=== PATIENT | male | born 1985 | race Caucasian/White ===

== ENCOUNTER 2017-10-10 09:43 | Emergency (ER) | payer SELFPAY ==
[2017-10-10 09:44] VITALS: BP 143/100; PULSE 70; RESP 16; TEMP 37.2; O2SAT 97; BMI 26.4
--- NOTE | 2017-10-10 09:51 | ED.DCSUM_ITS ---
- ER Visit Summary Date of Service: 10/10/17 Chief Complaint: Nausea, vomiting History of Present Illness: The patient is a 32 M presents to the emergency department with 24 hours of nausea and vomiting. Patient symptoms began last evening. He states he had some mild abdominal cramping. Today, he began to vomit. He said bouts of cramping. He states pain is worse in his midepigastric area. He has had no blood in the emesis. He denies any fevers but does admit to some chills. He states he is vomiting and felt like he was going to pass out. He has had no chest pain or dyspnea. The patient does have a history of marijuana abuse. He has had multiple bouts of vomiting like this before. He denies any other drug use. He denies any other withdrawal symptoms. Physical Examination: Vital signs reviewed General: Well-nourished, well-developed Head: Normocephalic, atraumatic Eyes: Pupils equal and reactive, extraocular muscles intact Neck, supple, no lymphadenopathy Heart: Regular rate and rhythm Respiratory: No distress, clear bilaterally Abdomen: Soft, minimally tender in the midepigastric area without rebound or guarding, nondistended, no peritoneal signs Back: Nontender Extremities: Nontender, no edema, no cords Skin: Normal color no rash Neuro: Alert and oriented, no focal or lateralizing deficits Test Results: [] Emergency Department Course and Treatment: The patient has had persistent nausea and vomiting. IV was established. He was given IV fluids, Phenergan, and Benadryl. He had no relief of symptoms. The patient was then given IM Haldol. He was reevaluated and had persistent nausea with 3 more bouts of emesis. Screening labs were obtained. These are unremarkable. Patient was then given lactated Ringer's, Benadryl, and Reglan. Within 30 minutes, the patient is still having multiple bouts of emesis. The patient is unable to even drink small amounts of fluids without persistent emesis, do for this patient's can require observation. He has failed multiple agents of anti- emetics. He has had symptoms like this in the past thought to be secondary to his marijuana abuse. He has a benign abdomen. Patient was discussed with the hospitalist. After discussing with the patient and proceeding with admission process, the patient decides that he does not want to stay. He states he just wants to go home. He feels like you will be able to control his symptoms better at home. The patient will be prescribed Zofran, Reglan, and will be discharged. I did savings counselor him that if his symptoms worsen he needs to return. He is comfortable with this plan of care. Treatment Plan: [] Disposition: Observation Impression: 1. Intractable nausea and vomiting This note was generated with [employer] dictation software. It may contain incorrect words, spelling, and punctuation that were not noted in review of the chart prior to signing ED Disposition - Plan for ED Patient: Chief Complaint: Nausea/Vomiting Instructions: ED Nausea Vomiting Prescriptions: Ondansetron [Zofran Odt] 4 mg PO Q8H PRN PRN #10 tab PRN Reason: Nausea Metoclopramide [Reglan] 10 mg PO 4X/DAY PRN #20 tab PRN Reason: Headache Referrals: Care Physician,No Primary [Primary Care Provider] -
[2017-10-10 10:07] LABS: Absolute Lymphocyte Count 1.51 X10^3/ul (0.83-4.51); Absolute Neutrophil Count 3.6 X10^3/uL (2.0-7.7); Basophil# 0.06 X10^3/uL; Eosinophils% 3.4 % (0-5); Hematocrit 45.3 % (40-54); Hemoglobin 15.9 g/dl (13.0-16.5); Lymphocyte # 1.51 X10^3/ul (4.0); Lymphocyte % 25.7 % (19-41); Mean Corp Hgb Conc 35.1 g/gl (32-36); Mean Corpuscular Hgb 30.4 pg (27.0-32.0); Mean Corpuscular Volume 86.6 fL (80-94); Mean Platelet Vol. 9.6 fl (6.2-12.0); Monocyte# 0.51 X10^3/uL; Monocyte% 8.7 % (0-10); Neutrophil # 3.58 X10^3/uL (2.7-7.7); Platelet Count 313 K/mm3 (150-450); RBC Distribution Width CV 13.5 % (11.6-14.6); RBC Distribution Width SD 42.8 fl (35.1-43.9); Red Blood Count 5.23 M/mm3 (4.6-6.2); White Blood Count 5.9 K/mm3 (4.4-11.0)
[2017-10-10] MEDS: DiphenhydrAMINE 50 MG/ML Syringe 25 MG IV ×2 (10:12→11:20)
[2017-10-10] MEDS: proMETHazine 25 MG/ML Syringe 12.5 MG IV (10:12)
[2017-10-10] MEDS: 0.9% Normal Saline 1,000 ML 1000 ML IV (10:12)
[2017-10-10 10:18] LABS: ALB/GLOB Ratio 1.3 RATIO (0.9-2.4); AST(SGOT) 15 U/L (15-37); Alanine Aminotransfer ALT/SGPT 24 U/L (16-61); Albumin, Serum 4.8 g/dL (3.2-5.0); Alkaline Phosphatase 93 U/L (45-117); Anion Gap 7 (5-15); BUN 12 mg/dL (7-18); BUN/Creat Ratio 9.6 RATIO (10-20); Calcium,Total 10.1 mg/dL (8.5-10.1); Chloride 105 mmol/L (98-107); Creatinine, Serum 1.25 mg/dL (0.70-1.30); EST Glomerular Filtration Rate 72 mL/min (>60); Est Glom Filt Rate - Afr Amer 87 mL/min (>60); Estimated Creatinine Clearance 97.66 ml/min; Globulin 3.7 g/dL (2.2-4.2); Glucose 94 mg/dL (74-106); Lipase 91 U/L (73-393); POSITIVE COUNT NO; POSITIVE DIFFERENTIAL NO; POSITIVE MORPHOLOGY NO; Potassium 4.4 mmol/L (3.5-5.1); Protein, Total 8.5 g/dL (6.4-8.2); Sodium Level 138 mmol/L (136-145)
[2017-10-10] MEDS: Haloperidol Lactate 5 MG/ML Vial IM (10:44)
--- NOTE | 2017-10-10 10:47 | ED.RN ---
PT CONTINUES TO ATTEMPT TO VOMIT. MOTHER AT BEDSIDE.
[2017-10-10] MEDS: LORazepam 2 MG/ML Syringe 1 MG IV (11:20)
[2017-10-10] MEDS: Lactated Ringers 1,000 ML 999 ML IV (11:20)
[2017-10-10] MEDS: Metoclopramide 10 MG/2 ML Vial IV (11:20)
[2017-10-10 12:13] VITALS: RESP 14
== END 2017-10-10 12:16 | disposition home or self-care (01) ==
PROVIDERS: Emergency Provider Emergency Medicine
DX: R11.2 Nausea with vomiting, unspecified (principal); R10.816 Epigastric abdominal tenderness; R68.83 Chills (without fever); R19.7 Diarrhea, unspecified; F41.9 Anxiety disorder, unspecified; F12.10 Cannabis abuse, uncomplicated; Z79.899 Other long term (current) drug therapy; Z72.0 Tobacco use
CPT/HCPCS: 80053; 83690; 85025; 96361; 96372; 96374; 96375; 96376; 99283; J7030; J7120; A4216

== ENCOUNTER 2017-10-10 14:08 | Observation (INO) | payer SELFPAY ==
[2017-10-10 14:09] VITALS: BP 143/77; PULSE 114; RESP 16; TEMP 36.5; O2SAT 97; BMI 26.4
--- NOTE | 2017-10-10 14:22 | ED.VISSUMM ---
- ER Visit Summary Date of Service: 10/10/17 Chief Complaint: Nausea, vomiting History of Present Illness: The patient is a 32 M presents to the emergency department with nausea and vomiting. The patient was actually seen here earlier. I evaluated this patient personally. He had intractable nausea and vomiting that I thought secondary to his chronic cannabis use. I was going to admit the patient. He refused admission. I did not make him sign AGAINST MEDICAL ADVICE because he felt like he could control his symptoms at home. Patient was prescribed Zofran and Reglan. States he got them filled but does have persistent vomiting. He states he has had continued cramping abdominal pain. He denies any fevers or chills. He states he can just not control his symptoms at home. Physical Examination: Vital signs reviewed General: Well-nourished, well-developed Head: Normocephalic, atraumatic Eyes: Pupils equal and reactive, extraocular muscles intact Neck, supple, no lymphadenopathy Heart: Regular rate and rhythm Respiratory: No distress, clear bilaterally Abdomen: Soft, mildly tender in the midepigastric area, nondistended, bowel sounds are hyperactive no peritoneal signs Back: Nontender Extremities: Nontender, no edema, no cords Skin: Normal color no rash Neuro: Alert and oriented, no focal or lateralizing deficits Test Results: [] Emergency Department Course and Treatment: The patient presents with recurrent symptoms. In fact, they never resolved. IV was established. The patient was treated with Benadryl, Ativan, and Thorazine. He had some improvement of his symptoms. I did discuss the presentation with the hospitalist. The patient is going to be admitted for his intractable nausea and vomiting. Treatment Plan: [] Disposition: Admission Impression: 1. Intractable nausea and vomiting This note was generated with [employer] dictation software. It may contain incorrect words, spelling, and punctuation that were not noted in review of the chart prior to signing ED Disposition - Plan for ED Patient: Chief Complaint: Nausea/Vomiting/Diarrhea
[2017-10-10 14:26] LABS: Bedside Glucose 119 mg/dL (70-110)
[2017-10-10] MEDS: DiphenhydrAMINE 50 MG/ML Syringe IV (14:41)
[2017-10-10] MEDS: LORazepam 2 MG/ML Syringe 1 MG IV (14:41)
[2017-10-10] MEDS: 0.9% Normal Saline 1,000 ML 1000 ML IV (14:41)
[2017-10-10] MEDS: ChlorproMAZINE 50 MG/2 ML Ampul IM (14:41)
[2017-10-10 14:44] LABS: Absolute Lymphocyte Count 0.83 X10^3/ul (0.83-4.51); Absolute Neutrophil Count 11.3 X10^3/uL (2.0-7.7); Basophil# 0.02 X10^3/uL; Basophil% 0.2 % (0-1); Hematocrit 42.8 % (40-54); Hemoglobin 14.7 g/dl (13.0-16.5); Lymphocyte # 0.83 X10^3/ul (4.0); Lymphocyte % 6.7 % (19-41); Mean Corp Hgb Conc 34.3 g/gl (32-36); Mean Corpuscular Hgb 29.8 pg (27.0-32.0); Mean Corpuscular Volume 86.8 fL (80-94); Mean Platelet Vol. 9.7 fl (6.2-12.0); Monocyte% 2.4 % (0-10); Neutrophil % 90.5 % (47-70); POSITIVE COUNT NO; POSITIVE DIFFERENTIAL NO; POSITIVE MORPHOLOGY NO; Platelet Count 275 K/mm3 (150-450); RBC Distribution Width CV 13.4 % (11.6-14.6); RBC Distribution Width SD 42.7 fl (35.1-43.9); Red Blood Count 4.93 M/mm3 (4.6-6.2); White Blood Count 12.5 K/mm3 (4.4-11.0)
--- NOTE | 2017-10-10 14:54 | CT_ITS ---
STUDY: CT ABDOMEN AND PELVIS WITHOUT CONTRAST REASON FOR EXAM: Male, 32 years old. Nausea and vomiting for 2 days RADIATION DOSAGE (If Supplied By Facility): CTDIvol = ( 10.25 ) mGy, DLP = ( 525.04 ) mGycm TECHNIQUE: Transaxial images were obtained from the dome of the diaphragm to the symphysis pubis without oral contrast, and without intravenous contrast. Sagittal and coronal images were reconstructed. Individualized dose optimization techniques were used for this CT. COMPARISON: None. FINDINGS: Lung bases demonstrate no evidence for consolidative process. Liver and spleen demonstrate no discrete mass. Gallbladder, adrenal glands and the pancreas are within normal limits. The bowel gas pattern is nonobstructive. The appendix appears unremarkable. Few scattered colonic diverticulosis without evidence for acute diverticulitis. No retroperitoneal adenopathy. No mesenteric adenopathy. Kidneys demonstrate no evidence for hydronephrosis. Nonobstructive appearance of the jejunal loops with apparent nonspecific wall thickening. Enteritis is a diagnostic consideration however in an appropriate clinical setting. Mild degenerative changes in the lumbar spine.. IMPRESSION: No evidence for obstructive uropathy. No evidence for acute appendicitis. No evidence for acute diverticulitis. Nonobstructive appearance of the jejunal loops with apparent nonspecific wall thickening. Enteritis is a diagnostic consideration however in an appropriate clinical setting. Electronically Signed: Chi Shrestha, at 15:50 EDT Tel , Service support , CT/Abdomen/Pelvis without Cont
[2017-10-10 14:57] LABS: ALB/GLOB Ratio 1.4 RATIO (0.9-2.4); AST(SGOT) 17 U/L (15-37); Alanine Aminotransfer ALT/SGPT 22 U/L (16-61); Albumin, Serum 4.6 g/dL (3.2-5.0); Alkaline Phosphatase 86 U/L (45-117); Anion Gap 9 (5-15); BUN 12 mg/dL (7-18); BUN/Creat Ratio 10.8 RATIO (10-20); Calcium,Total 9.5 mg/dL (8.5-10.1); Chloride 109 mmol/L (98-107); Creatinine, Serum 1.11 mg/dL (0.70-1.30); EST Glomerular Filtration Rate 83 mL/min (>60); Est Glom Filt Rate - Afr Amer 100 mL/min (>60); Estimated Creatinine Clearance 109.97 ml/min; Globulin 3.3 g/dL (2.2-4.2); Glucose 119 mg/dL (74-106); Lipase 73 U/L (73-393); Protein, Total 7.9 g/dL (6.4-8.2); Sodium Level 142 mmol/L (136-145)
--- NOTE | 2017-10-10 15:33 | HP.PCM_ITS ---
<Cole Anguiano - Last Filed: 10/10/17 15:19> Problem List (1) Intractable nausea and vomiting Status: Acute (2) Cannabis abuse Status: Chronic (3) Depression Status: Chronic (4) Anxiety Status: Chronic (5) Noncompliance with medication regimen Status: Chronic History of Present Illness Date of Admission: 10/10/17 Chief Complaint: intractable nausea and vomiting The patient is a 32 year old M who presented to the ER twice today with intractable nausea and vomiting that began last night. The patient states he was doing well until yesterday evening. He played 18 holes of golf during the day and then later at night started throwing up. He had a brief cessation in the evening and was able to keep down a normal full dinner last night. Then it began again, and has been persistent all day today. He states he has vomited about 50 times today. He came to the ER this AM and was given antiemetics without relief. He was going to be admitted but left AMA. He states that he went home and took two hot baths with some relief. When asked why he left he states he thought he could handle it on his own. He has no fevers or chills, but he is very sweaty currently. He is here with his mother. He also has BL abdominal pain located mostly on his sides but not back. He has had 2 episodes of loose stools. He denies any sick contacts. He is lethargic on exam after receiving thorazine. Also of note he stopped taking his seroquel 3 days ago because he ran out. He was hospitalized for intractable nausea and vomiting recently after suddenly discontinuing his psychiatric medicines. Additionally, he smokes marijuana 4-5 times per day. He does not drink alcohol. He has no prior abdominal surgeries. [] Past Medical History Past Medical History (Chronic Problems): Chronic Problems Cannabis abuse (Chronic) Insomnia (Chronic) Depression (Chronic) Anxiety (Chronic) Noncompliance with medication regimen (Chronic) Allergies No Known Allergies Allergy (Verified 10/10/17 14:11) Home Medications: Ambulatory Orders Medication Instructions Recorded ALPRAZolam [Xanax] 1 mg PO BID 10/10/17 Metoclopramide [Reglan] 10 mg PO 4X/DAY PRN #20 tab 10/10/17 Ondansetron [Zofran Odt] 4 mg PO Q8H PRN PRN #10 tab 10/10/17 Quetiapine Fumarate [Seroquel] 200 mg PO QHS 10/10/17 Sertraline HCl [Zoloft] 150 mg PO QHS 10/10/17 traZODone [Desyrel] 50 mg PO QHS 10/10/17 Surgical History: tonsillectomy Psychiatric History: Anxiety, Depression Lives: With Family Smoking Status: Current every day smoker Tobacco Use: Cigarettes Alcohol: None Drugs: Marijuana - *Family History Maternal History Items: No pertinent history Paternal History Items: COPD, Heart Disease Review of Systems Constitutional: Denies: Chills, Fever, Weight Change HEENT: Denies: Head Aches, Sinus Congestion, Sinus Drainage Cardiovascular: Denies: Chest Pain, Palpitations Respiratory: Denies: Cough, Shortness of breath at rest, Sputum production Gastrointestinal: Reports: Abdominal Pain, Nausea, Vomiting Genitourinary: Denies: Dysuria Musculoskeletal: Denies: Joint Pain, Joint Tenderness Skin: Denies: Rash, Wounds Neurological: Denies: Numbness, Tingling, Focal weakness Psychiatric: Denies: Anxiety, Depression, Homicidal Ideations, Suicidal Ideations Hematologic/ Lymphatic: Denies: Easy Bruising, Easy Bleeding VTE Information - Inpt Only VTE Present on Admission: No VTE Mechan Device Prophylaxis: SCD's VTE Pharm Prophylaxis ordered?: No Reason prophylaxis not ordered:: Procedure Not Indicated - Physical Exam General: Alert, Oriented x3, Cooperative, Lethargic HEENT: Atraumatic, PERRLA, EOMI, Normocephalic Neck: Supple, No JVD, Negative Carotid Bruits Lungs: Clear to auscultation, Normal air movement Cardiovascular: Regular rate, No murmurs Abdomen: Bowel Sounds Present, Soft, Tender - BL lateralized Extremities: No edema, Capillary Refill Less than 3 Seconds Skin: No rashes, No breakdown Musculoskeletal: No Tenderness to Palpation of Joints or Extremities Neurological: Cranial nerves II-XII grossly intact Psych/Mental Status: Anxious, Alert and oriented to time, place, person, mood and affect Vital Signs Temp Pulse Resp BP Pulse Ox 97.7 F L 114 H 16 143/77 H 97 10/10/17 14:09 10/10/17 14:09 10/10/17 14:09 10/10/17 14:09 10/10/17 14:09 Weight: 90.718 kg Body Mass Index (BMI) 26.4 Laboratory Tests Past 24 Hrs 10/10/17 10/10/17 14:05 14:05 WBC 12.5 H RBC 4.93 Hgb 14.7 Hct 42.8 MCV 86.8 MCH 29.8 MCHC 34.3 RDW 13.4 RDW Differential 42.7 Plt Count 275 MPV 9.7 Immature Gran % (Auto) 0.200 Neut % (Auto) 90.5 H Lymph % (Auto) 6.7 L Perkins % (Auto) 2.4 Eos % (Auto) 0.0 Baso % (Auto) 0.2 Absolute Neuts (auto) 11.3 H Absolute Lymphs (auto) 0.83 Total Counted Not Reportable Sodium 142 Potassium 4.0 Chloride 109 H Carbon Dioxide 24.0 Anion Gap 9 BUN 12 Creatinine 1.11 Estim Creat Clear Calc 109.97 Est GFR (MDRD) Af Amer 100 Est GFR (MDRD) Non-Af 83 BUN/Creatinine Ratio 10.8 Glucose 119 H Calcium 9.5 Total Bilirubin 0.60 AST 17 ALT 22 Alkaline Phosphatase 86 Total Protein 7.9 Albumin 4.6 Globulin 3.3 Albumin/Globulin Ratio 1.4 Lipase 73 POC Glucose 10/10/17 14:18 POC Glucose 119 H Assessment/Plan 1. Intractable nausea and vomiting with abdominal pain - pt is bounceback to the ER same day after leaving AMA. His BP is somewhat elevated, his pulse is elevated, and he has a mild leukocytosis, although this AM labs were normal. Recent admission for the same after suddenly discontinuing his psych meds - he suddenly DCd seroquel 3 days ago. He also is at risk for marijuana hyperemesis syndrome, especially with his classic history of relief with hot baths, however , will first rule out other pathology. As he has abdominal tenderness we will obtain a noncontrasted CT of the abdomen and pelvis. As he has also had some reported loose stools, viral gastroenteritis is also a possibility - no sick contacts tho. He will be placed on a clear liquid diet and given IV antiemetics , and pepcid. -LFTS are unremarkable, and Lipase is negative. -CT is pending. -I reiterated the importance of not suddenly discontinuing the psychiatric medications. 2. Anxiety and depression - resume home meds. He denies bipolar disorder. DVT ppx: SCDs This patient was seen by Cole Anguiano PA-C under the supervision of Doctor Gui. <uGiGaye E - Last Filed: 10/10/17 16:00> History of Present Illness The patient is a 32 year old M [] Past Medical History Allergies No Known Allergies Allergy (Verified 10/10/17 14:11) - Physical Exam Vital Signs Temp Pulse Resp BP Pulse Ox 97.7 F L 83 24 H 143/77 H 97 10/10/17 14:09 10/10/17 15:38 10/10/17 15:38 10/10/17 14:09 10/10/17 14:09 Assessment/Plan Hospitalist note: I am seeing this patient in conjunction with Cole Anguiano. I independently seen and examined the patient. History and physical and laboratory data and I concur with the above admission and treatment plan. Patient seen and examined. He presented to the emergency room because of intractable nausea and vomiting as well as vague generalized abdominal pain that started yesterday. As mentioned above, patient has been smoking marijuana. Also, he stopped taking his psych medications 3 days ago. Initially, tachycardic, blood pressure was slightly elevated, other vital signs are stable. - Physical Exam General: Alert, Oriented x3, Cooperative, complaining of abdominal pain. HEENT: Atraumatic, PERRLA, EOMI. Neck: Supple, No JVD, Negative Carotid Bruits, Trachea Midline, Thyroid Normal. Lungs: Clear to auscultation, Normal air movement, No rhonchi, No wheeze, No rales. Cardiovascular: Regular rate, Regular Rhythm, Normal S1, Normal S2, tachycardia , PMI Normal. Abdomen: Bowel Sounds Present, Tender, voluntary guarding, no localized tenderness or rigidity. No Hepato-splenomegaly. Extremities: No clubbing, No cyanosis, No edema Skin: No rashes, No breakdown Neurological: Neuro grossly intact, cranial nerves are intact, Dior 5 x 5 in all limbs. Assessment and plan: #1 intractable nausea and vomiting/abdominal pain: Likely because of cannabinoids hyperemesis syndrome. Initial blood work this morning was unremarkable. Blood work repeated again after he came back and showed mild leukocytosis, otherwise normal. LFT and lipase were unremarkable. Plan: Admit to [facility] floor for observation, IV fluids, IV antiemetics, IV Pepcid, CT scan abdomen and pelvis without contrast. #2 anxiety and depression: Continue home medications. #3 DVT prophylaxis: Low risk patient, no prophylaxis indicated. This note was generated with [employer] dictation software. It may contain incorrect words, spelling, and punctuation that were not noted in checking the note before signing. Code Visit OBSV E&M: 01410 Initial observation care L3
[2017-10-10 15:38] VITALS: PULSE 83; RESP 24
[2017-10-10 16:06] VITALS: BMI 23.8
[2017-10-10 16:16] VITALS: BP 146/77; PULSE 98; RESP 16; TEMP 37; O2SAT 99
[2017-10-10] MEDS: 0.9% Normal Saline 1,000 ML 125 ML IV (16:33)
[2017-10-10] MEDS: Famotidine 20 MG Tablet PO ×2 (16:35→21:52)
[2017-10-10] MEDS: 0.9% NaCl Peripheral Flush Adult/Peds IV ×2 (18:09→18:12)
[2017-10-10] MEDS: Ketorolac 15 MG/ML Vial IV (18:09)
[2017-10-10] MEDS: Ondansetron 4 MG/2 ML Vial IV (18:12)
[2017-10-10] MEDS: ALPRAZolam 0.5 MG Tablet 1 MG PO (19:57)
[2017-10-10 20:00] VITALS: BP 144/76; PULSE 94; RESP 18; TEMP 37.2; O2SAT 97
[2017-10-10] MEDS: traZODone 50 MG Tablet PO (21:52)
[2017-10-10] MEDS: QUEtiapine 100 MG Tablet 200 MG PO (21:52)
[2017-10-10] MEDS: Sertraline 50 MG Tablet 150 MG PO (21:52)
[2017-10-11] MEDS: 0.9% Normal Saline 1,000 ML 125 ML IV ×2 (00:40→08:00)
[2017-10-11 02:34] VITALS: BP 107/58; PULSE 95; RESP 18; TEMP 36.6; O2SAT 95
[2017-10-11 06:02] LABS: Absolute Lymphocyte Count 1.91 X10^3/ul (0.83-4.51); Absolute Neutrophil Count 7.5 X10^3/uL (2.0-7.7); Basophil# 0.02 X10^3/uL; Basophil% 0.2 % (0-1); Hematocrit 38.2 % (40-54); Lymphocyte # 1.91 X10^3/ul (4.0); Lymphocyte % 18.1 % (19-41); Mean Corpuscular Hgb 29.9 pg (27.0-32.0); Mean Corpuscular Volume 87.8 fL (80-94); Mean Platelet Vol. 9.8 fl (6.2-12.0); Monocyte% 10.4 % (0-10); Neutrophil # 7.53 X10^3/uL (2.7-7.7); Neutrophil % 71.1 % (47-70); Platelet Count 247 K/mm3 (150-450); RBC Distribution Width CV 13.7 % (11.6-14.6); RBC Distribution Width SD 44.3 fl (35.1-43.9); Red Blood Count 4.35 M/mm3 (4.6-6.2); White Blood Count 10.6 K/mm3 (4.4-11.0)
[2017-10-11 06:20] LABS: POSITIVE COUNT NO; POSITIVE DIFFERENTIAL NO; POSITIVE MORPHOLOGY NO
[2017-10-11 07:56] VITALS: BP 123/75; PULSE 98; RESP 18; TEMP 36.8; O2SAT 98
--- NOTE | 2017-10-11 08:07 | PCM.PN.HOSP ---
Vitals/I&O's: Vital Signs Temp Pulse Resp BP Pulse Ox 98.3 F 98 18 123/75 H 98 10/11/17 07:56 10/11/17 07:56 10/11/17 07:56 10/11/17 07:56 10/11/17 07:56 Oxygen Delivery Method Room Air Weight: 88.621 kg Body Mass Index (BMI) 23.8 Intake and Output for Last 24 Hours 10/09/17 10/10/17 10/11/17 23:59 23:59 23:59 Intake Total 650 / 650 1567 / 1567 Output Total 200 / 200 Balance 450 / 450 1567 / 1567 Laboratory Results 10/11/17 05:32: WBC 10.6, RBC 4.35 L, Hgb 13.0, Hct 38.2 L, MCV 87.8, MCH 29.9, MCHC 34.0, RDW 13.7, RDW Differential 44.3 H, Plt Count 247, MPV 9.8, Immature Gran % (Auto) 0.200, Neut % (Auto) 71.1 H, Lymph % (Auto) 18.1 L, Stephens % (Auto) 10.4 H, Eos % (Auto) 0.0, Baso % (Auto) 0.2, Absolute Neuts (auto) 7.5, Absolute Lymphs (auto) 1.91, Total Counted Not Reportable Current Medications Acetaminophen (Tylenol) 650 mg PO Q6H PRN PRN PRN Reason: PAIN Alprazolam (Xanax) 1 mg PO BID [facility] Last Admin: 10/10/17 19:57 Dose: 1 mg Famotidine (Pepcid) 20 mg PO BID [facility] Last Admin: 10/10/17 21:52 Dose: 20 mg Sodium Chloride () 1,000 mls @ 125 mls/hr IV .Q8H [facility] Last Admin: 10/11/17 00:40 Dose: 125 mls/hr Ketorolac Tromethamine (Toradol) 15 mg IV Q8H PRN PRN PRN Reason: PAIN Stop: 10/15/17 16:23 Last Admin: 10/10/17 18:09 Dose: 15 mg Ondansetron HCl (Zofran) 4 mg IV Q6H PRN PRN PRN Reason: NAUSEA Last Admin: 10/10/17 18:12 Dose: 4 mg Promethazine HCl (Phenergan) 6.25 mg IV Q6H PRN PRN PRN Reason: NAUSEA/VOMITING Quetiapine Fumarate (Seroquel) 200 mg PO QHS [facility] Last Admin: 10/10/17 21:52 Dose: 200 mg Sertraline HCl (Zoloft) 150 mg PO QHS [facility] Last Admin: 10/10/17 21:52 Dose: 150 mg Sodium Chloride () 5 - 30 ml IV UD PRN PRN Reason: SALINE FLUSH Last Admin: 10/10/17 18:12 Dose: 10 ml Trazodone HCl (Desyrel) 50 mg PO QHS [facility] Last Admin: 10/10/17 21:52 Dose: 50 mg Medical Necessity - Tobacco Use Smoking Status: Current every day smoker Tobacco Use: Cigarettes
--- NOTE | 2017-10-11 09:58 | CASEMGMT ---
Social Work Note SW met with pt as pt is self-pay. Per pt he applied for [employer] insurance and is waiting for the approval. SW provided pt local financial resources including [place] [id number], [employer], [employer], prescription assistance and HCAP application for [facility]. Pt was receptive to resources and thanked this SW. Pt denied additional needs or concerns at this time. Plan: Return Home at discharge [employer]
[2017-10-11] MEDS: Famotidine 20 MG Tablet PO (10:20)
[2017-10-11] MEDS: ALPRAZolam 0.5 MG Tablet 1 MG PO (10:20)
--- NOTE | 2017-10-11 10:49 | PCM.DC ---
- Discharge Diagnoses Current Active Problems: Current Active and Chronic Problems Cannabis abuse (Chronic) You will use the following diet at home:: No restrictions Your food should be the consistency of: Regular Your liquids should be the consistency of: Regular/Thin Discharge Activity: Return to Normal Activity Additional Instructions: You must completely discontinue using marijuana, THC products, and cannabinoid products. Allergies/Adverse Reactions: Allergies No Known Allergies Allergy (Verified 10/10/17 14:11) Medications to take at Discharge ALPRAZolam [Xanax] 1 mg PO BID 10/10/17 Quetiapine Fumarate [Seroquel] 200 mg PO QHS 10/10/17 Sertraline HCl [Zoloft] 150 mg PO QHS 10/10/17 traZODone [Desyrel] 50 mg PO QHS 10/10/17 Ondansetron [Zofran Odt] 4 mg PO Q8H PRN PRN #9 tab 10/11/17 The following prescriptions were given: Ondansetron [Zofran Odt] 4 mg PO Q8H PRN PRN #9 tab PRN Reason: Nausea Primary Care Physician: Care Physician,No Primary [Primary Care Provider] - Please follow up with your Primary Care Physician in: 1-2 weeks Please Follow Up With: Psychiatry - your own psychiatrist When: 1-2 weeks Proposed Discharge Date: 10/11/17
--- NOTE | 2017-10-11 12:44 | DS.PCM_ITS ---
<Cole Anguiano - Last Filed: 10/11/17 12:34> Discharge Date and Diagnosis Date of Admission: 10/10/17 Date of Discharge: 10/11/17 - Primary Discharge Diagnosis Intractable nausea and vomiting 2/2 cannabinoid hyperemesis syndrome Medication discontinuation syndrome - seroquel Anxiety and depression Nicotine abuse - Secondary Discharge Diagnosis Chronic Problems Cannabis abuse (Chronic) Insomnia (Chronic) Depression (Chronic) Anxiety (Chronic) Noncompliance with medication regimen (Chronic) Hospital Course and Treatment Imaging Results: CT abdomen: noncontrasted IMPRESSION: No evidence for obstructive uropathy. No evidence for acute appendicitis. No evidence for acute diverticulitis. Nonobstructive appearance of the jejunal loops with apparent nonspecific wall thickening. Enteritis is a diagnostic consideration however in an appropriate clinical setting. Operations: None Procedures: None Summary of Care Provided: Physical exam on day of discharge: General: Resting comfortably NAD Psych: A/Ox3 normal affect HEENT: PEARRLA AT NC Neck: Supple NT CV: RRR no m/t/r/g/h Resp: CTA Abd: [id number] Soft NT no guarding or rigidity Ext: DP2+= no edema Skin: W/D normal turgor Lymph/Heme: No active bleeding or adenopathy Neuro: CN2-12 intact Hospital course: The patient is a 32 year old M with a hx of anxiety and depression, nicotine abuse, marijuana abuse, who presented to the ER with chief complaint of intractable nausea and vomiting. He initially left AMA from the ER. He went home and soaked in a hot tub twice with some relief of his symptoms however it returned, so he returned to the ER for admission. He had some BL lateralizing abdominal pain and tenderness so a CT non contrats was done to rule out underlying pathology. This showed some enteritis. He admitted to smoking marijuana about 4-5 x / day. He also had a prior admission for intractable nausea and vomiting after suddenly discontinuing all of his psych meds. He did reveal that he stopped his seroquel 3 days prior as he ran out. His symptoms are consistent with cannabinoid hyperemesis syndrome, and could also partly be from his discontinuation of his seroquel. He also may have had some viral gastroenteritis. He was treated with supportive care, IV fluids and antiemetics. The following morning he had his diet advanced and has full resolution of his pain and improvement in his nausea. He was discharged home in stable condition and was advised to follow up with his PCP and psychiatrist. This patient was seen by Cole Anguiano PA-C under the supervision of Doctor Paul. [] Discharge Diet: No Restrictions Discharge Activity: Return to Normal Activity Additional Activity Instructions:: Discontinue use of all marijuana/THC/ cannabinoid products. Home Medications: Medications to take at Discharge ALPRAZolam [Xanax] 1 mg PO BID 10/10/17 Quetiapine Fumarate [Seroquel] 200 mg PO QHS 10/10/17 Sertraline HCl [Zoloft] 150 mg PO QHS 10/10/17 traZODone [Desyrel] 50 mg PO QHS 10/10/17 Ondansetron [Zofran Odt] 4 mg PO Q8H PRN PRN #9 tab 10/11/17 Following Prescrptions Were Given to Patient: Ondansetron [Zofran Odt] 4 mg PO Q8H PRN PRN #9 tab PRN Reason: Nausea Primary Care Physician: Care Physician,No Primary [Primary Care Provider] - Please follow up with your Primary Care Physician in: 1-2 weeks Please Follow Up With: Psychiatry - your own psychiatrist When: 1-2 weeks Disposition: Home Minutes spent on discharge:: 35 Patient Condition:: Stable Medical Necessity - Tobacco Use Smoking Status: Current every day smoker Tobacco Use: Cigarettes Meaningful Use Info Meaningful Use Diagnoses (Choose all that apply): None applicable <Lisa Miller - Last Filed: 10/11/17 15:32> Discharge Date and Diagnosis - Secondary Discharge Diagnosis Chronic Problems Cannabis abuse (Chronic) Insomnia (Chronic) Depression (Chronic) Anxiety (Chronic) Noncompliance with medication regimen (Chronic) Hospital Course and Treatment Summary of Care Provided: The patient is a 32 year old M [] Minutes spent on discharge:: 35 Code Visit Inpatient E&M: 66156 Disch Hosp
== END 2017-10-11 11:37 | disposition home or self-care (01) ==
LOC: ED 15:19 → MS3 15:33
PROVIDERS: Physician Assistant; Admitting Provider Hospitalist; Emergency Provider Emergency Medicine; Visit Provider Internal Medicine
DX: R11.2 Nausea with vomiting, unspecified (principal); F41.9 Anxiety disorder, unspecified; F32.9 Major depressive disorder, single episode, unspecified; Z79.899 Other long term (current) drug therapy; F12.188 Cannabis abuse with other cannabis-induced disorder; Z91.14 Patient's other noncompliance with medication regimen; F17.210 Nicotine dependence, cigarettes, uncomplicated
CPT/HCPCS: 36415; 74176; 80053; 82962; 83690; 85025; 96361; 96372; 96374; 96375; 97802; 99218; 99285; 99406; J7030; A4216; G0378; J2405

== ENCOUNTER 2017-10-13 10:17 | Observation (INO) | payer SELFPAY ==
[2017-10-13 10:18] VITALS: BP 158/102; PULSE 80; RESP 18; TEMP 36.2; O2SAT 97; BMI 25.0
[2017-10-13 10:38] LABS: Absolute Lymphocyte Count 1.32 X10^3/ul (0.83-4.51); Absolute Neutrophil Count 9.3 X10^3/uL (2.0-7.7); Basophil# 0.03 X10^3/uL; Basophil% 0.3 % (0-1); Eosinophil# 0.03 X10^3/uL; Eosinophils% 0.3 % (0-5); Hematocrit 42.9 % (40-54); Hemoglobin 14.8 g/dl (13.0-16.5); Lymphocyte # 1.32 X10^3/ul (4.0); Lymphocyte % 11.4 % (19-41); Mean Corp Hgb Conc 34.5 g/gl (32-36); Mean Corpuscular Hgb 29.7 pg (27.0-32.0); Mean Corpuscular Volume 86.1 fL (80-94); Mean Platelet Vol. 9.7 fl (6.2-12.0); Monocyte# 0.86 X10^3/uL; Monocyte% 7.4 % (0-10); Neutrophil # 9.33 X10^3/uL (2.7-7.7); Neutrophil % 80.4 % (47-70); Platelet Count 307 K/mm3 (150-450); RBC Distribution Width CV 13.4 % (11.6-14.6); RBC Distribution Width SD 42.2 fl (35.1-43.9); Red Blood Count 4.98 M/mm3 (4.6-6.2); White Blood Count 11.6 K/mm3 (4.4-11.0)
[2017-10-13 10:39] LABS: POSITIVE COUNT NO; POSITIVE DIFFERENTIAL NO; POSITIVE MORPHOLOGY NO
[2017-10-13] MEDS: 0.9% Normal Saline 1,000 ML 1000 ML IV (10:42)
[2017-10-13] MEDS: Metoclopramide 10 MG/2 ML Vial IV (10:43)
[2017-10-13] MEDS: LORazepam 2 MG/ML Syringe IV (10:43)
[2017-10-13] MEDS: DiphenhydrAMINE 50 MG/ML Syringe 25 MG IV (10:43)
[2017-10-13 10:55] LABS: ALB/GLOB Ratio 1.4 RATIO (0.9-2.4); AST(SGOT) 19 U/L (15-37); Alanine Aminotransfer ALT/SGPT 24 U/L (16-61); Albumin, Serum 4.6 g/dL (3.2-5.0); Alkaline Phosphatase 78 U/L (45-117); Anion Gap 12 (5-15); BUN 9 mg/dL (7-18); BUN/Creat Ratio 7.3 RATIO (10-20); Calcium,Total 9.9 mg/dL (8.5-10.1); Chloride 109 mmol/L (98-107); Creatinine, Serum 1.24 mg/dL (0.70-1.30); EST Glomerular Filtration Rate 73 mL/min (>60); Est Glom Filt Rate - Afr Amer 88 mL/min (>60); Estimated Creatinine Clearance 98.44 ml/min; Globulin 3.4 g/dL (2.2-4.2); Glucose 134 mg/dL (74-106); Lipase 85 U/L (73-393); Potassium 3.7 mmol/L (3.5-5.1); Sodium Level 141 mmol/L (136-145)
--- NOTE | 2017-10-13 11:46 | RAD_ITS ---
STUDY: X-RAY CHEST REASON FOR EXAM: Male, 32 years old. Cough and vomiting. TECHNIQUE: Frontal and lateral views of the chest. COMPARISON: None. FINDINGS: The lungs are clear and expanded. There is no demonstrated pleural abnormality. Normal size heart. Normal mediastinum and srinivas. Normal visualized pulmonary arteries. Normal visualized aortic arch and descending thoracic aorta. Normal visualized thoracic spine. Normal visualized ribs, clavicles, and shoulders. There is no demonstrated abnormality of the visualized soft tissue structures of the upper abdomen. RAD/Chest PA and Lateral IMPRESSION: Normal x-ray examination of the chest. Electronically Signed: Piter Arriola MD at 16:06 EDT , Service support ,
--- NOTE | 2017-10-13 11:46 | CT_ITS ---
STUDY: CT ABDOMEN AND PELVIS WITHOUT CONTRAST REASON FOR EXAM: Male, 32 years old. Abdomen pain, vomiting, leg cramps x3 days. RADIATION DOSAGE (If Supplied By Facility): CTDIvol = ( 8.34 ) mGy, DLP = ( 425.13 ) mGycm TECHNIQUE: Transaxial images were obtained from the dome of the diaphragm to the symphysis pubis without oral contrast, and without intravenous contrast. Sagittal and coronal images were reconstructed. Individualized dose optimization techniques were used for this CT. COMPARISON: October 10, 2017. FINDINGS: The visualized lung bases are unremarkable. The visualized portions of the heart are within normal limits. Normal liver. Normal gallbladder and extrahepatic biliary system. Normal spleen. Normal pancreas. Normal bilateral adrenal glands. Normal right kidney. Normal left kidney. Normal visualized stomach. Normal small intestine. Normal colon. The appendix is visualized and appears unremarkable and current sequence 2, image 114. There is no periappendiceal or pericecal inflammatory change, fluid collection or joshua abscess. There is no free fluid. There is no free air. Normal abdominal aorta. Normal inferior vena cava. Normal retroperitoneum. Normal urinary bladder. There are fatty only bilateral inguinal hernias. Normal osseous structures. CT/Abdomen/Pelvis without Cont IMPRESSION: No CT evident acute intraabdominal or intrapelvic pathology. Fatty only bilateral inguinal hernias. Electronically Signed: Piter Arriola MD at 16:05 EDT , Service support ,
--- NOTE | 2017-10-13 11:51 | ED.DCSUM_ITS ---
- ER Visit Summary Date of Service: 10/13/17 Chief Complaint: [Nausea and vomiting] History of Present Illness: The patient is a 32 M [presents to the emergency department complaint of vomiting that started this morning. Patient's thrown up more than 20 times. Patient was discharged from the hospital 2 days ago after being admitted for similar complaint. At that time patient had a CT scan of the abdomen pelvis showed questionable evidence of enteritis otherwise nothing acute. Patient denies any fever. Patient denies diarrhea. Patient does have history of marijuana abuse. Patient has history of anxiety.] Physical Examination: [HEENT-PERRLA, EOMI. Cranial nerves II through XII grossly intact. TMs clear. Mucous membranes moist. No adenopathy. Cardiovascular-regular rate and rhythm without murmur or ectopy Lungs-clear to auscultation, chest wall stable without crepitus or subcu emphysema Abdomen-normoactive bowel sounds, soft. Patient has diffuse tenderness. No rebound, rigidity, or perineal signs. Extremities-intact ?4, normal range of motion, normal pulses, atraumatic patient diaphoretic and hyperventilating.] Test Results: [CBC with differential showing 11.6, hemoglobin 14.8, hematocrit 43, platelets 307. Chemistries unremarkable. LFTs unremarkable. Lipase was 85.] Emergency Department Course and Treatment: [Patient was given a liter normal same fluid bolus. Patient initially given Reglan and Benadryl. Patient initially given Ativan 2 mg IV. Despite treatment patient continues to vomit and now the emesis is turning blood-tinged. Patient was written for Thorazine IV.] Treatment Plan: [Admit for further workup and evaluation. After patient was evaluated by hospitalist I was asked to order a CT scan of the patient's abdomen and a chest x-ray as well as blood cultures.] Disposition: [Admit] Impression: [Intractable nausea vomiting Abdominal pain] This note was generated with [employer] dictation software. It may contain incorrect words, spelling, and punctuation that were not noted in review of the chart prior to signing ED Disposition - Plan for ED Patient: Chief Complaint: Nausea/Vomiting Referrals: Care Physician,No Primary [Primary Care Provider] -
--- NOTE | 2017-10-13 12:07 | HP.PCM_ITS ---
Problem List (1) Cannabis abuse Status: Chronic (2) Depression Status: Chronic Qualifiers: Depression Type: unspecified Qualified Code(s): F32.9 - Major depressive disorder, single episode, unspecified (3) Anxiety Status: Chronic (4) Intractable nausea and vomiting Status: Acute Qualifiers: Vomiting type: cyclical vomiting Qualified Code(s): G43.A1 - Cyclical vomiting, intractable History of Present Illness Date of Admission: 10/13/17 Chief Complaint: Intractable nausea and vomiting - 1day The patient is a 32 year old M medical history of chronic cannabis use, anxiety and depression, recently discharged on 10/11/17 with cyclical vomiting syndrome and discontinuation syndrome. Patient states his been on all his medications since discharge. He denies smoking marijuana but his urine tox is positive for marijuana. That he felt well when he went home and this morning he decided to go play golf and whilst playing golf he felt very nauseous, took some Zofran but he did not hold him down. He has had times in the last few vomiting had blood in it. His vitals in the ED was stable with slight elevation in his blood pressure but repeat blood pressure on the floor was normal. Past Medical History Past Medical History (Chronic Problems): Chronic Problems Cannabis abuse (Chronic) Insomnia (Chronic) Depression (Chronic) Anxiety (Chronic) Noncompliance with medication regimen (Chronic) Allergies No Known Allergies Allergy (Verified 10/13/17 10:19) Home Medications: Ambulatory Orders Medication Instructions Recorded ALPRAZolam [Xanax] 1 mg PO BID 10/10/17 Quetiapine Fumarate [Seroquel] 200 mg PO QHS 10/10/17 Sertraline HCl [Zoloft] 150 mg PO QHS 10/10/17 traZODone [Desyrel] 50 mg PO QHS 10/10/17 Ondansetron [Zofran Odt] 4 mg PO Q8H PRN PRN #9 tab 10/11/17 Surgical History: tonsillectomy Psychiatric History: Anxiety, Depression Smoking Status: Current some day smoker - *Family History Maternal History Items: No pertinent history Paternal History Items: COPD, Heart Disease Review of Systems Constitutional: Reports: Chills, Fever, Weakness Eyes: Denies: Blurred vision, Cataracts, Conjunctivae Inflammation, Double vision HEENT: Denies: Difficulty Hearing, Difficulty Swallowing, Head Aches, Hearing Changes, Nasal bleeding, Nasal Congestion VTE Information - Inpt Only VTE Present on Admission: No VTE Pharm Prophylaxis ordered?: Yes - Physical Exam Vital Signs Temp Pulse Resp BP Pulse Ox 97.1 F L 80 18 158/102 H 97 10/13/17 10:18 10/13/17 10:18 10/13/17 10:18 10/13/17 10:18 10/13/17 10:18 Oxygen Delivery Method Room Air Weight: 86.183 kg Body Mass Index (BMI) 25.0 Laboratory Tests Past 24 Hrs 10/13/17 10/13/17 10:29 10:29 WBC 11.6 H RBC 4.98 Hgb 14.8 Hct 42.9 MCV 86.1 MCH 29.7 MCHC 34.5 RDW 13.4 RDW Differential 42.2 Plt Count 307 MPV 9.7 Immature Gran % (Auto) 0.200 Neut % (Auto) 80.4 H Lymph % (Auto) 11.4 L [place] % (Auto) 7.4 Eos % (Auto) 0.3 Baso % (Auto) 0.3 Absolute Neuts (auto) 9.3 H Absolute Lymphs (auto) 1.32 Total Counted Not Reportable Sodium 141 Potassium 3.7 Chloride 109 H Carbon Dioxide 20.0 L Anion Gap 12 BUN 9 Creatinine 1.24 Estim Creat Clear Calc 98.44 Est GFR (MDRD) Af Amer 88 Est GFR (MDRD) Non-Af 73 BUN/Creatinine Ratio 7.3 L Glucose 134 H Calcium 9.9 Total Bilirubin 0.60 AST 19 ALT 24 Alkaline Phosphatase 78 Total Protein 8.0 Albumin 4.6 Globulin 3.4 Albumin/Globulin Ratio 1.4 Lipase 85 Assessment/Plan 32 year old M medical history of chronic cannabis use, anxiety and depression, recently discharged on 10/11/17 with cyclical vomiting syndrome and discontinuation syndrome. Patient states his been on all his medications since discharge. 1. Intractable nausea and vomiting secondary to acute cyclical vomiting syndrome from marijuana use, patient's slight hematemesis is coming from retching from vomiting Plan: Admit to the MedSurg floor, IV fluids, IV antiemetics, IV PPI, advised to stop taking marijuana, follow-up on CT scan of the abdomen and pelvis 2. Anxiety/depression, continue home medication 3. Polysubstance use disorder, will add nicotine patch and gum 4. DVT PPx - Early ambulation Code Visit OBSV E&M: 21691 Initial observation care L3
[2017-10-13 12:41] VITALS: BP 122/65; PULSE 58; RESP 16; O2SAT 100
[2017-10-13 12:41] LABS: Bacteria 0 SEEN /hpf (None Seen); Mucous, Urine 0 SEEN /hpf (<or=2+); Red Blood Cells-Urine 0 SEEN /hpf (0-5); Squamous Epithelial Cells - UA 0 SEEN /hpf (0-5)
[2017-10-13 12:55] LABS: Color, Urine Yellow (Yellow); Glucose, Dipstick Normal (Normal); Ketone-Dipstick 15 mg/dl (Negative); Leukocyte Esterase-Dipstick 25 /ul (Negative); Nitrite-Dipstick Negative (Negative); Occult Blood-Urine Negative /ul (Negative); Protein-Dipstick Negative (Negative); Urine Bilirubin Dipstick Negative (Negative); Urine Clarity Clear (Clear); Urine Urobilinogen Normal (Normal)
[2017-10-13 13:03] LABS: White Blood Cells 0-5 SEEN /hpf (0-5)
[2017-10-13 13:23] LABS: Amphetamine Urine VISTA NEGATIVE (<1000 ng/mL); Barbiturate Urine VISTA NEGATIVE (< 200 ng/mL); Benzodiazepine Urine VISTA POSITIVE (< 200 ng/mL); Cocaine Urine VISTA NEGATIVE (< 300 ng/mL); Ecstacy Urine VISTA NEGATIVE (< 500 ng/mL); Methadone Urine VISTA NEGATIVE (< 300 ng/mL); PCP Urine VISTA NEGATIVE (< 25 ng/mL); THC Urine VISTA POSITIVE (< 50 ng/mL); Vista UDS pH Range 8
[2017-10-13 13:40] VITALS: BMI 25.8; BMI 25.9
[2017-10-13] MEDS: Ondansetron 4 MG/2 ML Vial IV (14:08)
[2017-10-13] MEDS: 0.9% NaCl Peripheral Flush Adult/Peds IV ×4 (14:08→21:58)
[2017-10-13] MEDS: proMETHazine 25 MG/ML Syringe 12.5 MG IV (15:39)
--- NOTE | 2017-10-13 20:25 | NURSING ---
Pt's father stopped at the desk to see if his son could get his IV wrapped so he could take a shower. I went back to the room after speaking with Katherin FOLEY and wrapped the pt's IV site so he could shower. I told him that when he was finished Katherin would be back to front office supervisor his fluids, obtain vital signs and assess the pt. Katherin had earlier informed me that the pt is trying to dictate his care already.
[2017-10-13 20:58] VITALS: BP 120/83; PULSE 90; RESP 16; TEMP 36.6; O2SAT 99
[2017-10-13] MEDS: Nicotine Polacrilex 2 MG GUM PO (21:57)
[2017-10-13] MEDS: ALPRAZolam 0.5 MG Tablet 1 MG PO (21:57)
[2017-10-13] MEDS: QUEtiapine 100 MG Tablet 200 MG PO (21:57)
[2017-10-13] MEDS: Sertraline 100 MG Tablet 150 MG PO (21:58)
[2017-10-13] MEDS: traZODone 50 MG Tablet PO (21:58)
--- NOTE | 2017-10-13 23:23 | NURSING ---
Patient called out requesting shower again. Explained to patient necessity of IVF for hydration and electrolyte replacement; however, patient still wishes to shower again.
[2017-10-14 02:54] VITALS: BP 111/70; PULSE 74; RESP 14; TEMP 37.1; O2SAT 99
[2017-10-14 06:04] LABS: Absolute Lymphocyte Count 2.79 X10^3/ul (0.83-4.51); Absolute Neutrophil Count 3.8 X10^3/uL (2.0-7.7); Basophil# 0.03 X10^3/uL; Basophil% 0.4 % (0-1); Eosinophil# 0.08 X10^3/uL; Hematocrit 36.7 % (40-54); Hemoglobin 12.7 g/dl (13.0-16.5); Lymphocyte # 2.79 X10^3/ul (4.0); Lymphocyte % 36.6 % (19-41); Mean Corp Hgb Conc 34.6 g/gl (32-36); Mean Corpuscular Hgb 30.2 pg (27.0-32.0); Mean Corpuscular Volume 87.4 fL (80-94); Mean Platelet Vol. 10.1 fl (6.2-12.0); Monocyte# 0.88 X10^3/uL; Monocyte% 11.5 % (0-10); Neutrophil # 3.84 X10^3/uL (2.7-7.7); Neutrophil % 50.4 % (47-70); Platelet Count 256 K/mm3 (150-450); RBC Distribution Width CV 13.5 % (11.6-14.6); RBC Distribution Width SD 42.2 fl (35.1-43.9); White Blood Count 7.6 K/mm3 (4.4-11.0)
[2017-10-14 06:11] LABS: POSITIVE COUNT NO; POSITIVE DIFFERENTIAL NO; POSITIVE MORPHOLOGY NO
[2017-10-14 06:31] LABS: ALB/GLOB Ratio 1.4 RATIO (0.9-2.4); AST(SGOT) 19 U/L (15-37); Alanine Aminotransfer ALT/SGPT 20 U/L (16-61); Albumin, Serum 3.9 g/dL (3.2-5.0); Alkaline Phosphatase 57 U/L (45-117); Anion Gap 8 (5-15); BUN 8 mg/dL (7-18); BUN/Creat Ratio 9.3 RATIO (10-20); Calcium,Total 8.4 mg/dL (8.5-10.1); Chloride 111 mmol/L (98-107); Creatinine, Serum 0.86 mg/dL (0.70-1.30); EST Glomerular Filtration Rate 110 mL/min (>60); Est Glom Filt Rate - Afr Amer 134 mL/min (>60); Estimated Creatinine Clearance 141.94 ml/min; Globulin 2.7 g/dL (2.2-4.2); Glucose 91 mg/dL (74-106); Potassium 3.7 mmol/L (3.5-5.1); Protein, Total 6.6 g/dL (6.4-8.2); Sodium Level 145 mmol/L (136-145)
--- NOTE | 2017-10-14 08:33 | PCM.PN.HOSP ---
Subjective: Patient was seen and examined. He feels improved. No more nausea or vomiting. Been keeping food down. Denies dizziness, SOB, fever, chills, chest pain. Vitals/I&O's: Vital Signs Temp Pulse Resp BP Pulse Ox 98.8 F 74 14 111/70 99 10/14/17 02:54 10/14/17 02:54 10/14/17 02:54 10/14/17 02:54 10/14/17 02:54 Oxygen Delivery Method Room Air Weight: 88.9 kg Body Mass Index (BMI) 25.8 Intake and Output for Last 24 Hours 10/12/17 10/13/17 10/14/17 23:59 23:59 23:59 Intake Total 2811 / 2811 1139 / 1139 Balance 281 / 2811 1139 / 1139 General: Alert, Oriented x3, Cooperative, No apparent distress HEENT: Atraumatic, PERRLA, EOMI, Normocephalic Oral: Moist Mucosa Neck: Supple Lungs: Clear to auscultation, Normal air movement Cardiovascular: Regular rate, Regular Rhythm, Normal S1, Normal S2, No murmurs Abdomen: Bowel Sounds Present, Soft, Non Tender, Non-Distended, No Hepato-splenomegaly Extremities: No edema Skin: No rashes, No breakdown Musculoskeletal: No Tenderness to Palpation of Joints or Extremities Lymphatic: No Cervical, Supraclavicular, or Inguinal Adenopathy Neurological: Cranial nerves II-XII grossly intact, Neuro grossly intact Psych/Mental Status: Normal Affect, Appropriate Laboratory Results 10/13/17 12:30: Urine Color Yellow, Urine Clarity Clear, Urine pH 8.0, Ur Specific [place] 1.010, Urine Protein Negative, Urine Glucose (UA) Normal, Urine Ketones 15 H, Urine Occult Blood Negative, Urine Nitrite Negative, Urine Bilirubin Negative, Urine Urobilinogen Normal, Ur Leukocyte Esterase 25 H, Urine RBC 0 SEEN, Urine WBC 0-5 SEEN, Ur Squamous Epith Cells 0 SEEN, Urine Bacteria 0 SEEN, Urine Mucus 0 SEEN 10/13/17 12:30: Urine Opiates Screen NEGATIVE, Urine Methadone Screen NEGATIVE, Ur Barbiturates Screen NEGATIVE, Ur Phencyclidine Scrn NEGATIVE, Ur Amphetamines Screen NEGATIVE, U Methamphetamin-MDMA NEGATIVE, U Benzodiazepines Scrn POSITIVE H, Urine Cocaine Screen NEGATIVE, U Cannabinoids Screen POSITIVE H, Ur Drug Screen Comment 10/14/17 05:30: WBC 7.6, RBC 4.20 L, Hgb 12.7 L, Hct 36.7 L, MCV 87.4, MCH 30.2, MCHC 34.6, RDW 13.5, RDW Differential 42.2, Plt Count 256, MPV 10.1, Immature Gran % (Auto) 0.100, Neut % (Auto) 50.4, Lymph % (Auto) 36.6, [place] % (Auto) 11.5 H, Eos % (Auto) 1.0, Baso % (Auto) 0.4, Absolute Neuts (auto) 3.8, Absolute Lymphs (auto) 2.79, Total Counted Not Reportable 10/14/17 05:30: Sodium 145, Potassium 3.7, Chloride 111 H, Carbon Dioxide 26.0, Anion Gap 8, BUN 8, Creatinine 0.86, Estim Creat Clear Calc 141.94, Est GFR (MDRD) Af Amer 134, Est GFR (MDRD) Non-Af 110, BUN/Creatinine Ratio 9.3 L, Glucose 91, Calcium 8.4 L, Total Bilirubin 0.80, AST 19, ALT 20, Alkaline Phosphatase 57, Total Protein 6.6, Albumin 3.9, Globulin 2.7, Albumin/Globulin Ratio 1.4 Current Medications Acetaminophen (Tylenol) 650 mg PO Q6H PRN PRN PRN Reason: Mild Pain (1-3)/Temp > 100.7 F Alprazolam (Xanax) 1 mg PO BID [facility] Last Admin: 10/13/17 21:57 Dose: 1 mg Bisacodyl (Dulcolax) 5 mg PO DAILY PRN PRN PRN Reason: Constipation Potassium Chloride/Sodium Chloride () 1,000 mls @ 100 mls/hr IV .Q10H [facility] Last Admin: 10/14/17 02:48 Dose: 100 mls/hr Pantoprazole Sodium 40 mg/ (Sodium Chloride) 110 mls @ 330 mls/hr IV Q12 [facility] Last Admin: 10/13/17 21:58 Dose: 330 mls/hr Magnesium Hydroxide (Milk Of Magnesia) 30 ml PO DAILY PRN PRN PRN Reason: Constipation Nicotine (Nicoderm Cq (Pbkc)) 21 mg TRANSDERM. DAILY [facility] Last Admin: 10/13/17 16:08 Dose: 21 mg Nicotine Polacrilex ([place] Nicotine (Bkc)) 2 mg PO Q2H PRN PRN PRN Reason: Nicotine Craving Last Admin: 10/13/17 21:57 Dose: 2 mg Ondansetron HCl (Zofran) 4 mg IV Q8H PRN PRN PRN Reason: NAUSEA Last Admin: 10/13/17 14:08 Dose: 4 mg Promethazine HCl (Phenergan) 12.5 mg IV Q6H PRN PRN PRN Reason: NAUSEA/VOMITING Last Admin: 10/13/17 15:39 Dose: 12.5 mg Psyllium Hydrophilic Mucilloid (Metamucil) 1 packet PO DAILY PRN PRN PRN Reason: CONSTIPATION Quetiapine Fumarate (Seroquel) 200 mg PO QHS [facility] Last Admin: 10/13/17 21:57 Dose: 200 mg Sertraline HCl (Zoloft) 150 mg PO QHS [facility] Last Admin: 10/13/17 21:58 Dose: 150 mg Sodium Chloride () 5 - 30 ml IV UD PRN PRN Reason: SALINE FLUSH Last Admin: 10/13/17 21:58 Dose: 10 ml Trazodone HCl (Desyrel) 50 mg PO QHS [facility] Last Admin: 10/13/17 21:58 Dose: 50 mg Medical Necessity - Tobacco Use Smoking Status: Current some day smoker Assessment/Plan 32 year old M medical history of chronic cannabis use, anxiety and depression, recently discharged on 10/11/17 with cyclical vomiting syndrome and discontinuation syndrome. Patient states his been on all his medications since discharge. 1. Intractable nausea and vomiting secondary to acute cyclical vomiting syndrome from marijuana use, improved, tolerating advancement in diet. Family requested for general surgeon for EGD and colonoscopy - Discussed with Dr. Young. 2. Anxiety/depression, continue home medication 3. Polysubstance use disorder, on nicotine patch and gum 4. DVT PPx - Early ambulation
[2017-10-14 08:55] VITALS: BP 138/82; PULSE 60; RESP 16; TEMP 37; O2SAT 98
[2017-10-14] MEDS: ALPRAZolam 0.5 MG Tablet 1 MG PO (09:18)
[2017-10-14] MEDS: Magnesium Hydroxide 30 ML UDC PO (09:57)
--- NOTE | 2017-10-14 10:10 | CASEMGMT ---
Social Work Assessment Referral Date: 10/14/2017 Date of Assessment: 10/14/2017 Reason for consult: Initial assessment, Marijuana use, past hx of anxiety of depression Informant: SW Personal Status: SW met with pt to complete initial assessment. SW introduced self and role at [facility]. Pt states that he is currently living with his father and that he was previously independent with [facility] before coming into the hospital. 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 Pt states that he feels like he has good support around him but states that eventually he would like to move back to [place]. 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 Pt states that he has also lived in [place] before and also attended golf academy there. Pt states that he is good at golf and enjoys playing it. SW asked about pt's insurance and per pt his [employer] is currently still getting processed. Pt states that his plan is to return to his dad's house at discharge. Pt denied additional needs or concerns at this time. Substance Abuse Hx: Pt has a history of smoking Marijuana Mental Health Hx: Pt states that he has depression, anxiety and bipolar and that he currently takes medication. Pt states that he is seeing a psychiatrist that is on [facility] in [place] but it is not at [facility]. Pt states that in the past he was receiving counseling services through [facility] but states that he felt like therapy didn't work for him and he denied needing counseling services or references at this time. Pt states that his plan is to continue to take his medication and to continue to receive services from his psychiatrist. Plan: Return to his dad's house at discharge and to continue to receive services from his psychiatrist Mara Farooq [employer]
--- NOTE | 2017-10-14 11:15 | PCM.DC ---
- Discharge Diagnoses Reason(s) for Visit for Discharge Instructions: Nausea, vomiting You will use the following diet at home:: Regular Your food should be the consistency of: Regular Your liquids should be the consistency of: Regular/Thin Discharge Activity: Return to Normal Activity Additional Instructions: You are strongly advised to avoid smoking marijuana as your vomiting is related to use of marijuana. Allergies/Adverse Reactions: Allergies No Known Allergies Allergy (Verified 10/13/17 10:19) Medications to take at Discharge ALPRAZolam [Xanax] 1 mg PO BID 10/10/17 Quetiapine Fumarate [Seroquel] 200 mg PO QHS 10/10/17 Sertraline HCl [Zoloft] 150 mg PO QHS 10/10/17 traZODone [Desyrel] 50 mg PO QHS 10/10/17 Ondansetron [Zofran Odt] 4 mg PO Q8H PRN PRN #9 tab 10/11/17 Primary Care Physician: Care Physician,No Primary [Primary Care Provider] - Please follow up with your Primary Care Physician in: within 2 weeks Please Follow Up With: Reynold Young MD When: within 2 weeks of discharge as scheduled Proposed Discharge Date: 10/14/17
--- NOTE | 2017-10-14 11:17 | DS.PCM_ITS ---
Discharge Date and Diagnosis Date of Admission: 10/13/17 Date of Discharge: 10/14/17 - Primary Discharge Diagnosis Nausea and vomiting secondary to acute cyclical vomiting syndrome - Secondary Discharge Diagnosis Chronic Problems Cannabis abuse (Chronic) Insomnia (Chronic) Depression (Chronic) Anxiety (Chronic) Noncompliance with medication regimen (Chronic) Hospital Course and Treatment Imaging Results: Clinical Impression(s) from Imaging Studies Abdomen/Pelvis CT 10/13/17 11:46 IMPRESSION: No CT evident acute intraabdominal or intrapelvic pathology. Fatty only bilateral inguinal hernias. Electronically Signed: Piter Arriola MD at 16:05 EDT , Service support , Chest X-Ray 10/13/17 11:46 IMPRESSION: Normal x-ray examination of the chest. Electronically Signed: Piter Arriola MD at 16:06 EDT , Service support , General surgery Operations: None Procedures: None Summary of Care Provided: 32 year-old male with past medical history of chronic cannabis use, anxiety/ depression, recently discharged on 10/11/17 with cyclical vomiting syndrome and discontinuation syndrome comes with intractable nausea and vomiting. 1. Intractable nausea and vomiting secondary to acute cyclical vomiting syndrome secondary to marijuana use, improved, tolerating advancement in diet. Family requested for general surgeon for EGD and colonoscopy, general surgeon, Dr. Young consulted. 2. Anxiety/depression, continue home medication 3. Polysubstance use disorder, on nicotine patch and gum Discharge Diet: No Restrictions Discharge Activity: Return to Normal Activity Home Medications: Medications to take at Discharge ALPRAZolam [Xanax] 1 mg PO BID 10/10/17 Quetiapine Fumarate [Seroquel] 200 mg PO QHS 10/10/17 Sertraline HCl [Zoloft] 150 mg PO QHS 10/10/17 traZODone [Desyrel] 50 mg PO QHS 10/10/17 Ondansetron [Zofran Odt] 4 mg PO Q8H PRN PRN #9 tab 10/11/17 Primary Care Physician: Care Physician,No Primary [Primary Care Provider] - Please follow up with your Primary Care Physician in: within 2 weeks Please Follow Up With: Reynold Young MD When: within 2 weeks of discharge as scheduled Disposition: Home Minutes spent on discharge:: 35 Patient Condition:: Stable Medical Necessity - Tobacco Use Smoking Status: Current some day smoker Meaningful Use Info Meaningful Use Diagnoses (Choose all that apply): None applicable Code Visit Inpatient E&M: 98348 Disch Hosp
--- NOTE | 2017-10-14 13:33 | PCM.CONS.GEN ---
Problem List (1) Cannabis abuse Status: Chronic (2) Depression Status: Chronic Qualifiers: Depression Type: unspecified Qualified Code(s): F32.9 - Major depressive disorder, single episode, unspecified (3) Anxiety Status: Chronic (4) Intractable nausea and vomiting Status: Acute Qualifiers: Vomiting type: cyclical vomiting Qualified Code(s): G43.A1 - Cyclical vomiting, intractable Reason for Consult Date of Consultation: 10/14/17 History of Present Illness: The patient is a 32 year old M with a 4 year history of nausea and vomiting. The patient's been given a tentative diagnosis cyclic vomiting. The patient has a history of depression and anxiety. He is on multiple medications for anxiety but when he ends up running out of his medications or feels he probably doesn't need them and then stops taking his medications. She will have episodes it generally started as follows. He notes a sensation of anxiety and then he will feel like he is hyperventilating. it will then feel that his fingers or spasms or cramping out and then he develops abdominal pain. This epigastric abdominal pain is usually followed by prolific vomiting. the patient also smokes significant amounts of Marijuana,-, he notes 2 bowls per day. He states that if he is coming off his medicines or smoked marijuana and then got them on November 26. Large amounts of food and then the next morning gets anxious, he will vomit a significant amount of his relatively undigested food. This last episode of vomiting began when the patient had a phone call with his father who basically told him he would not amount to anything. The patient then became anxious and had the onset of these symptoms as he is prone to do. He noted blood in his vomitus towards the end of his retching episodes. He denies any significant change in bowel habits. He notes no melena or hematochezia. He notes no family history of colon problems. Past Medical History Past Medical History (Chronic Problems): Chronic Problems Cannabis abuse (Chronic) Insomnia (Chronic) Depression (Chronic) Anxiety (Chronic) Noncompliance with medication regimen (Chronic) Allergies No Known Allergies Allergy (Verified 10/13/17 10:19) Home Medications: Ambulatory Orders Medication Instructions Recorded ALPRAZolam [Xanax] 1 mg PO BID 10/10/17 Quetiapine Fumarate [Seroquel] 200 mg PO QHS 10/10/17 Sertraline HCl [Zoloft] 150 mg PO QHS 10/10/17 traZODone [Desyrel] 50 mg PO QHS 10/10/17 Ondansetron [Zofran Odt] 4 mg PO Q8H PRN PRN #9 tab 10/11/17 Surgical History: tonsillectomy Psychiatric History: Anxiety, Depression Smoking Status: Current some day smoker - *Family History Maternal History Items: No pertinent history Paternal History Items: COPD, Heart Disease Review of Systems Constitutional: Denies: Chills, Fever, Weight Change HEENT: Denies: Head Aches, Sinus Congestion, Sinus Drainage Cardiovascular: Denies: Chest Pain, Palpitations Respiratory: Denies: Cough, Shortness of breath at rest, Sputum production Gastrointestinal: Reports: Hematemesis, Nausea, Vomiting. Denies: Abdominal Pain Genitourinary: Denies: Dysuria Musculoskeletal: Denies: Joint Pain, Joint Tenderness Skin: Denies: Rash, Wounds Neurological: Denies: Numbness, Tingling, Focal weakness Psychiatric: Denies: Anxiety, Depression, Homicidal Ideations, Suicidal Ideations Hematologic/ Lymphatic: Denies: Easy Bruising, Easy Bleeding - Physical Exam General: Alert, Oriented x3, Cooperative HEENT: Atraumatic, PERRLA, EOMI, Normocephalic Neck: Supple, No JVD, Negative Carotid Bruits Lungs: Clear to auscultation, Normal air movement Cardiovascular: Regular rate, No murmurs Abdomen: Bowel Sounds Present, Soft, Non Tender Extremities: No edema, Capillary Refill Less than 3 Seconds Skin: No rashes, No breakdown Musculoskeletal: No Tenderness to Palpation of Joints or Extremities Neurological: Cranial nerves II-XII grossly intact Psych/Mental Status: Normal Affect, Appropriate Vital Signs Temp Pulse Resp BP Pulse Ox 98.6 F 60 16 138/82 H 98 10/14/17 08:55 10/14/17 08:55 10/14/17 08:55 10/14/17 08:55 10/14/17 08:55 Oxygen Delivery Method Room Air Weight: 88.9 kg Body Mass Index (BMI) 25.8 Intake and Output for Last 24 Hours 10/12/17 10/13/17 10/14/17 23:59 23:59 23:59 Intake Total 2811 / 2811 1139 / 1139 Balance 2811 / 281 1139 / 1139 Laboratory Tests Past 24 Hrs 10/14/17 10/14/17 05:30 05:30 WBC 7.6 RBC 4.20 L Hgb 12.7 L Hct 36.7 L MCV 87.4 MCH 30.2 MCHC 34.6 RDW 13.5 RDW Differential 42.2 Plt Count 256 MPV 10.1 Immature Gran % (Auto) 0.100 Neut % (Auto) 50.4 Lymph % (Auto) 36.6 [place] % (Auto) 11.5 H Eos % (Auto) 1.0 Baso % (Auto) 0.4 Absolute Neuts (auto) 3.8 Absolute Lymphs (auto) 2.79 Total Counted Not Reportable Sodium 145 Potassium 3.7 Chloride 111 H Carbon Dioxide 26.0 Anion Gap 8 BUN 8 Creatinine 0.86 Estim Creat Clear Calc 141.94 Est GFR (MDRD) Af Amer 134 Est GFR (MDRD) Non-Af 110 BUN/Creatinine Ratio 9.3 L Glucose 91 Calcium 8.4 L Total Bilirubin 0.80 AST 19 ALT 20 Alkaline Phosphatase 57 Total Protein 6.6 Albumin 3.9 Globulin 2.7 Albumin/Globulin Ratio 1.4 Assessment/Plan anxiety, depression, episodic vomiting, likely secondary to stress and anxiety. Episode of hematemesis, no colon changes I feel it is reasonable proceed with upper endoscopy. I do not feel that lower endoscopy is indicated at this time. I discussed with the patient the risks, benefits, complications, and possible alternatives of endoscopy. The patient consents to the planned procedure. Since he is on multiple antidepressant anxiety medications, I feel my ability to sedate him with fentanyl and Versed as limited and therefore we'll plan for monitored anesthetic care. I discussed with the patient and the patient's mother extensively. However, his symptoms sound more like anxiety related vomiting then truly a definition of cyclic vomiting. He currently sees a psychiatrist who monitors his anti-anxiety and antidepressant medications. As noted briefly in the patient's history of present illness, there are multiple issues exist, which likely need to be addressed from a psychiatric standpoint related to his anxiety and depression issues, which I feel will do more to improve his vomiting than any other specific event.
[2017-10-14 14:11] VITALS: BP 133/77; PULSE 80; RESP 16; TEMP 37.2; O2SAT 99
== END 2017-10-14 14:18 | disposition home or self-care (01) ==
LOC: ED 10:39 → MS3 12:50
PROVIDERS: Admitting Provider Internal Medicine; Emergency Provider Emergency Medicine; Visit Provider Internal Medicine
DX: G43.A0 Cyclical vomiting, in migraine, not intractable (principal); F12.10 Cannabis abuse, uncomplicated; F41.9 Anxiety disorder, unspecified; F32.9 Major depressive disorder, single episode, unspecified; Z79.899 Other long term (current) drug therapy; Z91.19 Patient's noncompliance with other medical treatment and regimen; F51.04 Psychophysiologic insomnia; F17.200 Nicotine dependence, unspecified, uncomplicated
CPT/HCPCS: 36415; 71046; 74176; 80053; 80307; 81001; 83690; 85025; 87040; 96361; 96365; 96366; 96375; 96376; 97802; 99218; 99284; 99406; J7030; A4216; G0378; J2405; J3490

== ENCOUNTER 2017-10-15 05:44 | Emergency (ER) | payer SELFPAY ==
[2017-10-15 05:45] VITALS: BP 132/82; PULSE 71; RESP 20; TEMP 36.2; O2SAT 98; BMI 25.8
[2017-10-15] MEDS: LORazepam 2 MG/ML Syringe 0.5 MG IV (05:59)
--- NOTE | 2017-10-15 06:03 | ED.DCSUM_ITS ---
- ER Visit Summary Date of Service: 10/15/17 Chief Complaint: Nausea and vomiting History of Present Illness: The patient is a 32 M he returns again for nausea and vomiting. He has been vomiting multiple times at home. His oral Zofran is not helping. He was admitted twice within the past week. It was suspected that either his cannabis use or a diagnosis of cyclical vomiting syndrome was causing his symptoms. He has had multiple negative CAT scans. He has had multiple types of therapies including Zofran, Phenergan, Reglan, Thorazine, Ativan and Haldol. None of these seem to help resolve his symptoms thoroughly. His vomiting started again. He is attributing it to his anxiety which makes his symptoms even worse. Physical Examination: Vital signs reviewed. HEENT exam unremarkable. Heart is regular rate and rhythm without murmurs. Lungs are clear to auscultation. Abdomen is soft with diffuse tenderness. Extremities reveal no edema. Skin exam normal. Neurologic exam normal. Test Results: None indicated Emergency Department Course and Treatment: Patient was treated with Zofran, Ativan, Benadryl and Thorazine. His dry heaving has stopped. Patient will be observed to see if he feels better. I have written Phenergan tablets and suppositories for home. Treatment Plan: [] Disposition: Pending Impression: Nausea and vomiting This note was generated with [employer] dictation software. It may contain incorrect words, spelling, and punctuation that were not noted in review of the chart prior to signing ED Disposition - Plan for ED Patient: Disposition: Home or Assisted Living Chief Complaint: Nausea/Vomiting Instructions: ED Nausea Vomiting Prescriptions: proMETHazine suppository [Phenergan Suppository] 25 mg RECTAL Q6H PRN PRN #6 suppos. PRN Reason: Nausea proMETHazine tablet [Phenergan] 25 mg PO Q6H PRN PRN #10 tab PRN Reason: Nausea Referrals: Care Physician,No Primary [Primary Care Provider] -
--- NOTE | 2017-10-15 06:32 | ED.DEP ---
ED Disposition - Plan for ED Patient: Disposition: Home or Assisted Living Chief Complaint: Nausea/Vomiting Instructions: ED Nausea Vomiting Prescriptions: proMETHazine suppository [Phenergan Suppository] 25 mg RECTAL Q6H PRN PRN #6 suppos. PRN Reason: Nausea proMETHazine tablet [Phenergan] 25 mg PO Q6H PRN PRN #10 tab PRN Reason: Nausea Referrals: Care Physician,No Primary [Primary Care Provider] -
[2017-10-15] MEDS: Ondansetron 4 MG/2 ML Vial IV (06:38)
[2017-10-15 09:00] VITALS: RESP 17
[2017-10-15] MEDS: 0.9% Normal Saline 1,000 ML 999 ML IV (09:09)
[2017-10-15] MEDS: proMETHazine 25 MG/ML Syringe 12.5 MG IV (09:09)
[2017-10-15 10:19] VITALS: BP 149/87; PULSE 67; RESP 16; O2SAT 97
== END 2017-10-15 10:20 | disposition home or self-care (01) ==
PROVIDERS: Emergency Provider Emergency Medicine
DX: R11.2 Nausea with vomiting, unspecified (principal); R10.9 Unspecified abdominal pain; F41.9 Anxiety disorder, unspecified; Z79.899 Other long term (current) drug therapy; F12.90 Cannabis use, unspecified, uncomplicated; Z72.0 Tobacco use
CPT/HCPCS: 96361; 96365; 96374; 96375; 99285; J7030; J7050; A4216; J2405; J3490

== ENCOUNTER 2017-10-16 14:36 | Observation (INO) | payer SELFPAY ==
[2017-10-16 14:36] VITALS: BP 149/114; PULSE 128; RESP 18; TEMP 36.8; O2SAT 96; BMI 24.7
--- NOTE | 2017-10-16 14:59 | ED.VISSUMM ---
- ER Visit Summary Date of Service: 10/16/17 Chief Complaint: Anxiety i, abdominal pain, vomiting History of Present Illness: The patient is a 32 M with history of bipolar affective disorder and anxiety presents with burning abdominal pain localized in the epigastric and sternal region with nausea and vomiting yesterday today. He states he has vomited 10 times today. He states he is anxious and wants to know what is wrong. He thinks he is going to . He was admitted on October 13 for similar presentation. He had a significant workup which was negative. He is scheduled for an outpatient EGD. There is no past surgical history. He has no medical problems. Records from the admission for October 13 for reviewed. He reports temperature 100.0?F yesterday at his psychiatrist's office. He denies any weight loss or weight gain. Does complain of chills uncertain is whether this is secondary to being cold or anxious for both. He does complain of binocular blurred vision without double vision or loss of vision. He does report dry mouth. No trouble with swallowing or speech. He does complain of burning of his esophagus and points to mid chest. He also complains of upper midline abdominal burning sensation. He denies hematemesis, melena hematochezia. He denies shortness of breath. He does have a cough. He denies dyspnea on exertion. He denies any dysuria, frequency, urgency or hematuria. He is on no anticoagulant. He denies bruising easily. He denies any skin lesions. He does complain of perioral numbness as well as numbness of upper and lower extremities. He does report feeling anxious. Please read written note for complete detail Physical Examination: Vital signs are remarkable for an elevated blood pressure 147/114 and a heart rate of 128. He is afebrile. Head is atraumatic and cephalic. Pupils equal round reactive. Extra muscles are intact. Nares patent. Posterior pharynx without erythema XA. Mucosa is dry. Trachea is midline. Heart is rapid and regular without murmur, gallop or rub. Lungs are clear to auscultation. He has upper abdominal discomfort to palpation. Pain is out of proportion to stimulus. Bowel sounds are present and diminished. He is alert he is anxious. Motor spiral 5. Sensations intact. DTRs are hyperreflexic at 3-4+. Unable to assess for clonus because he will not relax. He has bilateral's [place] sign. Test Results: BMP is remarkable for a sodium 132, potassium 3.3, CO2 of 17 with an anion gap of 15. BUN and creatinine 21 1.73. Last creatinine was 0.83. Emergency Department Course and Treatment: IV was established she received 2 L of normal saline. Since he is tachycardic and clinically dehydrated a BMP was obtained. He had the cyclic vomiting order set initiated and was initially treated with Ativan, Zofran and Pepcid. Stage II of the cyclic vomiting order set was initiated since patient continues to vomit. He remains tachycardic. He has received 1.5 L of normal saline. Treatment Plan: Patient continues to vomit is tachycardic with acute kidney injury hospitalist has been paged for admission and recommendation [facility]. And, he is scheduled for an EGD by Dr. Reynold Young on Wednesday Disposition: MedSur Impression: 1. Cyclic vomiting 2. Acute kidney injury 3. Moderate to severe dehydration 4. Sinus tachycardia documented on monitor 5. Anion gap acidosis 6. Hyperkalemia This note was generated with [employer] dictation software. It may contain incorrect words, spelling, and punctuation that were not noted in review of the chart prior to signing ED Disposition - Plan for ED Patient: Chief Complaint: Abd Pain Referrals: Care Physician,No Primary [Primary Care Provider] -
[2017-10-16] MEDS: 0.9% Normal Saline 1,000 ML 1000 ML IV ×2 (15:09→15:17)
[2017-10-16] MEDS: LORazepam 2 MG/ML Syringe 0.5 MG IV (15:09)
[2017-10-16] MEDS: Ondansetron 4 MG/2 ML Vial IV (15:14)
[2017-10-16 15:55] LABS: Anion Gap 15 (5-15); BUN 21 mg/dL (7-18); BUN/Creat Ratio 12.1 RATIO (10-20); Calcium,Total 10.6 mg/dL (8.5-10.1); Chloride 100 mmol/L (98-107); Creatinine, Serum 1.73 mg/dL (0.70-1.30); EST Glomerular Filtration Rate 49 mL/min (>60); Est Glom Filt Rate - Afr Amer 60 mL/min (>60); Estimated Creatinine Clearance 70.56 ml/min; Glucose 109 mg/dL (74-106); Potassium 3.3 mmol/L (3.5-5.1); Sodium Level 132 mmol/L (136-145)
[2017-10-16 16:34] VITALS: BP 119/64; PULSE 102; RESP 16; TEMP 36.9; O2SAT 96
--- NOTE | 2017-10-16 16:34 | PCM.HP.STD ---
Problem List (1) Cannabis abuse Status: Chronic (2) Insomnia Status: Chronic (3) Depression Status: Chronic Qualifiers: (4) Anxiety Status: Chronic (5) Noncompliance with medication regimen Status: Chronic (6) Intractable nausea and vomiting Status: Acute Qualifiers: History of Present Illness Date of Admission: 10/16/17 Chief Complaint: Nausea, vomiting. The patient is a 32 year old M who presents to the emergency room with persistent nausea, vomiting ?2 days. He has presented to the emergency room multiple times recently for nausea and vomiting as well. Patient was recently admitted 10/13/17 through 10/14/17 for nausea and vomiting secondary to acute cyclical vomiting syndrome suspected secondary to marijuana use. Patient denies current marijuana use. Urine tox screen 10/13/17 positive for cannabinoids. Patient denies fever, chills. Denies diarrhea. He states he has been unable to keep any liquid or food down the past 2 days. He received antiemetics at discharge yesterday from ER which he states have not been effective. Complains of generalized tenderness to palpation to abdomen. Patient states pain is burning in nature and located in the epigastric area down to lower abdomen. Patient also states he has attempted to use Zantac at home again, without improvement. He smokes approximately 1 pack per day. Denies other drug use. Denies alcohol use. His past medical history is significant for depression, anxiety, bipolar. Past Medical History Past Medical History (Chronic Problems): Chronic Problems Cannabis abuse (Chronic) Insomnia (Chronic) Depression (Chronic) Anxiety (Chronic) Noncompliance with medication regimen (Chronic) Allergies No Known Allergies Allergy (Verified 10/15/17 14:40) Home Medications: Ambulatory Orders Medication Instructions Recorded ALPRAZolam [Xanax] 1 mg PO BID 10/10/17 Quetiapine Fumarate [Seroquel] 200 mg PO QHS 10/10/17 Sertraline HCl [Zoloft] 150 mg PO QHS 10/10/17 traZODone [Desyrel] 50 mg PO QHS 10/10/17 Ondansetron [Zofran Odt] 4 mg PO Q8H PRN PRN #9 tab 10/11/17 proMETHazine suppository 25 mg RECTAL Q6H PRN PRN #6 suppos. 10/15/17 [Phenergan Suppository] proMETHazine tablet [Phenergan] 25 mg PO Q6H PRN PRN #10 tab 10/15/17 Surgical History: tonsillectomy Psychiatric History: Anxiety, Bipolar, Depression Lives: With Family Smoking Status: Current every day smoker Tobacco Use: Cigarettes - 1 pack per day Drugs: - - History of marijuana use, denies current use - *Family History Maternal History Items: Stroke Paternal History Items: COPD, Heart Disease Review of Systems Constitutional: Denies: Chills, Fever, Weight Change HEENT: Denies: Head Aches, Sinus Congestion, Sinus Drainage Cardiovascular: Denies: Chest Pain, Palpitations Respiratory: Denies: Cough, Shortness of breath at rest, Sputum production Gastrointestinal: Reports: Abdominal Pain, Nausea, Vomiting. Denies: Diarrhea, Hematemesis, Melena Genitourinary: Denies: Dysuria Musculoskeletal: Denies: Joint Pain, Joint Tenderness Skin: Denies: Rash, Wounds Neurological: Denies: Numbness, Tingling, Focal weakness Psychiatric: Reports: Anxiety, Depression. Denies: Homicidal Ideations, Suicidal Ideations Hematologic/ Lymphatic: Denies: Easy Bruising, Easy Bleeding VTE Information - Inpt Only VTE Present on Admission: No VTE Mechan Device Prophylaxis: None VTE Pharm Prophylaxis ordered?: No Reason prophylaxis not ordered:: Treatment Not Indicated - Physical Exam General: Alert, Oriented x3, Cooperative HEENT: Atraumatic, PERRLA, EOMI, Normocephalic Oral: Dry Mucosa Neck: Supple, No JVD, Negative Carotid Bruits Lungs: Clear to auscultation, Normal air movement Cardiovascular: Regular Rhythm, Normal S1, Normal S2, No murmurs, Tachycardic Abdomen: Bowel Sounds Present, Soft, Non Tender, Non-Distended Extremities: No clubbing, No cyanosis, No edema, Capillary Refill Less than 3 Seconds Skin: No rashes, No breakdown Musculoskeletal: No Tenderness to Palpation of Joints or Extremities Neurological: Cranial nerves II-XII grossly intact, Neuro grossly intact Psych/Mental Status: Normal Affect, Appropriate Vital Signs Temp Pulse Resp BP Pulse Ox 98.3 F 128 H 18 149/114 H 96 10/16/17 14:36 10/16/17 14:36 10/16/17 14:36 10/16/17 14:36 10/16/17 14:36 Oxygen Delivery Method Room Air Weight: 85.275 kg Body Mass Index (BMI) 24.7 Laboratory Tests Past 24 Hrs 10/16/17 15:10 Sodium 132 L Potassium 3.3 L Chloride 100 Carbon Dioxide 17.0 L Anion Gap 15 BUN 21 H Creatinine 1.73 H Estim Creat Clear Calc 70.56 Est GFR (MDRD) Af Amer 60 Est GFR (MDRD) Non-Af 49 L BUN/Creatinine Ratio 12.1 Glucose 109 H Calcium 10.6 H Assessment/Plan 1. Intractable nausea, vomiting-unclear etiology. Multiple recent presentations with persistent nausea, vomiting. Recent admission this was suspected secondary to marijuana use. IV fluids. Clear liquid diet. IV antiemetics. Patient was scheduled for outpatient EGD with Dr. Young on Wednesday. Will continue with plan for EGD on Wednesday. Begin IV PPI. Obtain lipase. 2. Acute kidney injury-secondary to dehydration as a result of #1. IV fluids. Monitor BMP. 3. Hypokalemia-secondary to #1. 4. Sinus tachycardia-secondary to dehydration. 5. Anxiety/depression/bipolar-follows with outpatient psychiatry. Continue home regimen of Xanax, Seroquel, Zoloft, trazodone. 6. Tobacco dependence-encourage smoking cessation. Nicotine replacement patch. 7. History of marijuana use-denies current use. Tox screen 10/13/17 positive for cannabinoids. DVT prophylaxis-not indicated due to low risk. Encourage ambulation. This patient was seen by LENA Carlson under the supervision of Dr. Lane.
[2017-10-16 16:36] VITALS: BP 121/62; PULSE 101; RESP 16; O2SAT 94
--- NOTE | 2017-10-16 17:07 | NURSING ---
med surg obs cyclic vomiting tereletsky
[2017-10-16 17:46] VITALS: BP 125/78; PULSE 95; RESP 16; TEMP 37.4; O2SAT 98; BMI 24.5
[2017-10-16 18:08] LABS: Lipase 81 U/L (73-393)
[2017-10-16] MEDS: 0.9% NaCl Peripheral Flush Adult/Peds IV (18:52)
[2017-10-16] MEDS: 0.9% Normal Saline 1,000 ML 200 ML IV (18:52)
[2017-10-16] MEDS: Sertraline 50 MG Tablet 150 MG PO (21:29)
[2017-10-16] MEDS: ALPRAZolam 0.5 MG Tablet 1 MG PO (21:29)
[2017-10-16] MEDS: traZODone 50 MG Tablet PO (21:29)
[2017-10-16] MEDS: QUEtiapine 100 MG Tablet 200 MG PO (21:29)
[2017-10-16 21:30] VITALS: BP 116/58; PULSE 111; RESP 14; TEMP 36.7; O2SAT 96
[2017-10-17 01:55] VITALS: BP 112/58; PULSE 66; RESP 18; TEMP 37; O2SAT 95
[2017-10-17] MEDS: 0.9% Normal Saline 1,000 ML 200 ML IV ×2 (01:55→06:34)
[2017-10-17] MEDS: proCHLORPERazine 10 MG/2 ML Vial IV (06:30)
[2017-10-17 06:32] LABS: Anion Gap 8 (5-15); BUN 15 mg/dL (7-18); BUN/Creat Ratio 18.2 RATIO (10-20); Calcium,Total 8.2 mg/dL (8.5-10.1); Chloride 110 mmol/L (98-107); Creatinine, Serum 0.82 mg/dL (0.70-1.30); EST Glomerular Filtration Rate 116 mL/min (>60); Est Glom Filt Rate - Afr Amer 141 mL/min (>60); Estimated Creatinine Clearance 148.87 ml/min; Glucose 81 mg/dL (74-106); Potassium 3.5 mmol/L (3.5-5.1); Sodium Level 141 mmol/L (136-145)
[2017-10-17] MEDS: LORazepam 2 MG/ML Syringe 0.5 MG IV (07:23)
[2017-10-17 09:37] VITALS: BP 113/71; PULSE 84; RESP 18; TEMP 37.2; O2SAT 99
[2017-10-17] MEDS: ALPRAZolam 0.5 MG Tablet 1 MG PO (09:46)
--- NOTE | 2017-10-17 11:45 | PCM.DC ---
You will use the following diet at home:: No restrictions Discharge Activity: Return to Normal Activity Call your doctor if you observe: Shortness of breath, Dizziness, Fainting spells Allergies/Adverse Reactions: Allergies No Known Allergies Allergy (Verified 10/15/17 14:40) Medications to take at Discharge ALPRAZolam [Xanax] 1 mg PO BID 10/10/17 Quetiapine Fumarate [Seroquel] 100 mg PO QHS 10/10/17 Sertraline HCl [Zoloft] 150 mg PO QHS 10/10/17 traZODone [Desyrel] 50 mg PO QHS 10/10/17 Ondansetron [Zofran Odt] 4 mg PO Q8H PRN PRN #9 tab 10/11/17 proMETHazine suppository [Phenergan Suppository] 25 mg RECTAL Q6H PRN PRN #6 suppos. 10/15/17 proMETHazine tablet [Phenergan tablet] 25 mg PO Q6H PRN PRN #10 tab 10/15/17 Esomeprazole Mag Trihydrate [Nexium] 40 mg PO BID #60 cap 10/17/17 The following prescriptions were given: Esomeprazole Mag Trihydrate [Nexium] 40 mg PO BID #60 cap Primary Care Physician: Care Physician,No Primary [Primary Care Provider] - Please follow up with your Primary Care Physician in: 1 Week Please Follow Up With: Reynold Young MD When: As scheduled, tomorrow 10/18/17 for EGD Proposed Discharge Date: 10/17/17
--- NOTE | 2017-10-17 11:47 | PCM.DC.SUM ---
Discharge Date and Diagnosis Date of Admission: 10/16/17 Date of Discharge: 10/17/17 - Primary Discharge Diagnosis 1. Intractable nausea, vomiting 2. Acute kidney injury 3. Hypokalemia 4. Sinus tachycardia 5. Anxiety/depression/bipolar 6. Tobacco dependence 7. History of chronic marijuana use - Secondary Discharge Diagnosis Chronic Problems Cannabis abuse (Chronic) Insomnia (Chronic) Depression (Chronic) Anxiety (Chronic) Noncompliance with medication regimen (Chronic) Hospital Course and Treatment Operations: None Procedures: None Summary of Care Provided: The patient is a 32 year old M admitted 10/16/2017 due to persistent nausea, vomiting. He has presented to the emergency room multiple times recently for nausea and vomiting as well. Patient was recently admitted 10/13/17 through 10/14/17 for nausea and vomiting secondary to acute cyclical vomiting syndrome suspected secondary to marijuana use. Patient denies current marijuana use. Urine tox screen 10/13/17 positive for cannabinoids. His past medical history is significant for depression, anxiety, bipolar. 1. Intractable nausea, vomiting-unclear etiology. Multiple recent presentations with persistent nausea, vomiting. Recent admission this was suspected secondary to marijuana use. Patient improved. Stable for discharge home with as needed antiemetics as previously prescribed. Patient scheduled for outpatient EGD with Dr. Young on 10/18/17. Patient will be discharged home on Nexium 40 mg twice daily. Lipase 81. 2. Acute kidney injury-secondary to dehydration as a result of #1. Patient received IV fluids. Resolved. 3. Hypokalemia-secondary to #1. Resolved. 4. Sinus tachycardia-secondary to dehydration. Resolved. 5. Anxiety/depression/bipolar-follows with outpatient psychiatry. Continue home regimen of Xanax, Seroquel, Zoloft, trazodone. 6. Tobacco dependence-encourage smoking cessation. 7. History of marijuana use-denies current use. Tox screen 10/13/17 positive for cannabinoids. General: Alert, Oriented x3, Cooperative HEENT: Atraumatic, PERRLA, EOMI, Normocephalic Oral: Dry Mucosa Neck: Supple, No JVD, Negative Carotid Bruits Lungs: Clear to auscultation, Normal air movement Cardiovascular: Regular Rhythm, Normal S1, Normal S2, No murmurs, Tachycardic Abdomen: Bowel Sounds Present, Soft, Non Tender, Non-Distended Extremities: No clubbing, No cyanosis, No edema, Capillary Refill Less than 3 Seconds Skin: No rashes, No breakdown Musculoskeletal: No Tenderness to Palpation of Joints or Extremities Neurological: Cranial nerves II-XII grossly intact, Neuro grossly intact Psych/Mental Status: Normal Affect, Appropriate Patient seen and examined prior to discharge. Physical assessment as above. Patient stable for discharge home with follow-up as scheduled tomorrow with Dr. Lovell for EGD. This patient was seen by LENA Carlson under the supervision of Dr. Lane. Discharge Diet: No Restrictions Discharge Activity: Return to Normal Activity Call your doctor if you observe: Shortness of breath, Dizziness, Fainting spells Home Medications: Medications to take at Discharge ALPRAZolam [Xanax] 1 mg PO BID 10/10/17 Quetiapine Fumarate [Seroquel] 100 mg PO QHS 10/10/17 Sertraline HCl [Zoloft] 150 mg PO QHS 10/10/17 traZODone [Desyrel] 50 mg PO QHS 10/10/17 Ondansetron [Zofran Odt] 4 mg PO Q8H PRN PRN #9 tab 10/11/17 proMETHazine suppository [Phenergan Suppository] 25 mg RECTAL Q6H PRN PRN #6 suppos. 10/15/17 proMETHazine tablet [Phenergan tablet] 25 mg PO Q6H PRN PRN #10 tab 10/15/17 Esomeprazole Mag Trihydrate [Nexium] 40 mg PO BID #60 cap 10/17/17 Following Prescrptions Were Given to Patient: Esomeprazole Mag Trihydrate [Nexium] 40 mg PO BID #60 cap Primary Care Physician: Care Physician,No Primary [Primary Care Provider] - Please follow up with your Primary Care Physician in: 1 Week Please Follow Up With: Reynold Young MD When: As scheduled, tomorrow 10/18/17 for EGD Disposition: Home Minutes spent on discharge:: 35 Patient Condition:: Stable Medical Necessity - Tobacco Use Smoking Status: Current every day smoker Tobacco Use: Cigarettes Meaningful Use Info Meaningful Use Diagnoses (Choose all that apply): None applicable
[2017-10-17 12:06] VITALS: BP 117/84; PULSE 83; RESP 16; TEMP 36.9; O2SAT 98
== END 2017-10-17 12:23 | disposition home or self-care (01) ==
LOC: ED 16:24 → MS3 17:32
PROVIDERS: Admitting Provider Internal Medicine; Emergency Provider Emergency Medicine; Visit Provider Internal Medicine
DX: R11.2 Nausea with vomiting, unspecified (principal); N17.9 Acute kidney failure, unspecified; E87.6 Hypokalemia; R00.0 Tachycardia, unspecified; F31.9 Bipolar disorder, unspecified; F41.9 Anxiety disorder, unspecified; Z79.899 Other long term (current) drug therapy; Z91.14 Patient's other noncompliance with medication regimen; E86.0 Dehydration; F12.10 Cannabis abuse, uncomplicated; F17.210 Nicotine dependence, cigarettes, uncomplicated
CPT/HCPCS: 36415; 80048; 83690; 96361; 96365; 96366; 96367; 96375; 96376; 97802; 99218; 99406; J7030; A4216; G0378; J2405; J3490

== ENCOUNTER 2017-10-18 10:06 | Day surgery (SDC) | payer SELFPAY ==
[2017-10-18] VITALS (7 sets, daily range): BP systolic 127–169; BP diastolic 73–100; PULSE 67–95; RESP 16–20; TEMP 36.6–37.9; O2SAT 97–100; BMI 24.0
--- NOTE | 2017-10-18 | IMM_PTH ---
PATIENT: JAD DUENAS LOC: EN U#:[id number] AGE/SX: 32/M ROOM: RE10/18/[address]: Dr. Reynold Young MD : 1985 BED: DIS: 10/18/2017 SPEC #: [id number] RECD: 10/20/17 11:09 STATUS: JOSEErrol AMELIA #: [id number] LUIS: 10/18/17 00:[address]: Reynold Young DEPT: IMMUNOHISTOCHEMISTRY RECD BY: Charlotte Jessica ENTERED: 10/20/17 11:16 SP TYPE: IMMUNO OTHR DR: No Primary Care Phys Tissues: B - Stomach, NOS C - Stomach, NOS Procedures: H Pylori (initial) PHYSICIAN & INSTITUTION [place] [id number] SPECIMEN INFORMATION: Tissue Source: B ? Antrum, C ? Proximal stomach Clinical Info: Cyclic vomiting Specimen Number: [id number] B & C CPT code: 16550 x2 METHODOLOGY: Deparaffinized sections of prefer/formalin-fixed tissue or PAP/DQ stained slides are incubated with monoclonal/polyclonal antibodies/oligonucleotide probes. Localization is made via biotin free immunoperoxidase method. Appropriate controls are performed and reacted as expected. Results on target cell population are indicated in the following table: RESULTS: ANTIBODY / CLONE RESULT Block B H Pylori (polyclonal) negative Block C H Pylori (polyclonal) negative These tests were developed and their performance characteristics determined by [facility]. They may not have been cleared or approved by the U.S. Food and Drug Administration. The FDA has determined that such clearance or approval is not necessary. INTERPRETATION: B. Antrum, biopsy: Negative for Helicobacter pylori organisms. C. Proximal stomach, biopsy: Negative for Helicobacter pylori organisms. SJ:erika 10/21/17
--- NOTE | 2017-10-18 11:35 | EGD_PTH ---
PATIENT: JAD DUENAS LOC: EN U#:[id number] AGE/SX: 32/M ROOM: RE10/18/[address]: Dr. Reynold Young MD : 1985 BED: DIS: 10/18/2017 SPEC #: [id number] RECD: 10/18/17 15:20 STATUS: LAURITA AMELIA #: [id number] LUIS: 10/18/17 11:[address]: Reynold Young DEPT: SURGICAL PATHOLOGY RECD BY: Dwayne Cotto ENTERED: 10/19/17 08:07 SP TYPE: EGD BIOPSY OTHR DR: Elizabeth Primary Care Phys Tissues: A - Jejunum, NOS B - Gastric mucous membrane C - Gastric mucous membrane Procedures: Surgery Specimen Level IV HEADER OPERATION: EGD PRE-OP DIAGNOSIS: Cyclic vomiting TISSUE SUBMITTED: A. Jejunum biopsies, B. Antrum for path and H. Pylori, C. Proximal stomach biopsies MICROSCOPIC DIAGNOSIS A. Jejunum, biopsy: Fragments of small intestinal mucosa, no pathologic diagnosis. B. Antrum, biopsy: Mild gastritis. C. Proximal stomach, biopsy: Mild gastritis. A minute lymphoid aggregate, favor benign. SJ:erika 10/20/17 COMMENT B & C. The results of immunohistochemistry for Helicobacter pylori will be reported separately ([id number]). MICROSCOPIC DESCRIPTION Slides are reviewed. B. The specimen shows fragments of gastric mucosa with chronic inflammatory cell infiltrates in the lamina propria consisting of lymphocytes and plasma cells, consistent with mild chronic gastritis. C. The specimen shows fragments of gastric mucosa with chronic inflammatory cell infiltrates in the lamina propria consisting of lymphocytes and plasma cells, consistent with mild chronic gastritis. A minute lymphoid is also noted, favor benign. GROSS DESCRIPTION A - Received in fixative is one container labeled with the patient's name and designated jejunum. The specimen consists of multiple irregular fragments of light sevilla soft tissue that in aggregate measure 0.5 x 0.5 x 0.1 cm. The specimen is totally submitted in one cassette. B - Received in fixative is one container labeled with the patient's name and designated antrum. The specimen consists of one irregular fragment of light sevilla soft tissue that measures 0.3 x 0.3 x 0.1 cm. The specimen is totally submitted in one cassette. C - Received in fixative is one container labeled with the patient's name and designated proximal stomach. The specimen consists of one irregular fragment of light sevilla soft tissue that measures 0.5 x 0.2 x 0.1 cm. The specimen is totally submitted in one cassette. / RY:rg 10/19/17 TC:3 CPT: 83320 x3
--- NOTE | 2017-10-18 11:50 | OP.PCM_ITS ---
Report of Operation Date of Procedure: 10/18/17 Pre-Operative Diagnosis: VOMITING, STRESS/ANXIETY VS CYCLIC VOMITING Post-Operative Diagnosis: VOMITING, STRESS/ANXIETY VS CYCLIC VOMITING - MILD GASTRITIS DISTAL, PROXIMAL GASTRITIS (?2ND TO VOMITING) MILD GE JUNCTIOJN IRRITATION Surgery/Procedure Performed:: EGD WITH BIOPSY assembler garment form: None Type of Anesthesia:: MAC Anesthesiologist: Morgan Yousif - ASA2 Specimen's removed: JEJUNAL, GASTRIC DISTAL, PROXIMAL GASTRIC Description of Procedure: The patient was brought to the endoscopy suite. Sign in was performed verifying patient, site, planned procedure, critical nursing information, the patient was monitored with cardiac, pulse oximetric, and blood pressure monitoring devices. Monitored anesthetic care was provided for sedation. Following IV sedation and after the oropharynx was sprayed with Cetacaine spray , a video gastroscope was inserted in the oropharynx and advanced down the esophagus without difficulty. The scope was advanced through the stomach, through the pylorus through the duodenum to the proximal jejunum. the jejunum appeared unremarkable. The duodenum was unremarkable. The antral region. The stomach demonstrated minimal gastritis. The body of the stomach was unremarkable. As the scope was retroflexed. The stomach along the lesser curve had erythematous nodularity consistent with gastritis, or more likely from chronic retching. Biopsies were obtained from both the antral area for H. pylori and pathology and a second biopsies obtained from the lesser curve just below the GE junction area. The patient had no significant hiatal hernia. There was mild distal esophagitis consistent with reflux, vomiting, but was otherwise unremarkable.
--- NOTE | 2017-10-20 07:11 | PCM.HP.BLA ---
History and Physical Date of Admission: 10/18/17 History of Present Illness: The patient is a 32 year old M with a 4 year history of nausea and vomiting. The patient's been given a tentative diagnosis cyclic vomiting. The patient has a history of depression and anxiety. He is on multiple medications for anxiety but when he ends up running out of his medications or feels he probably doesn't need them and then stops taking his medications. She will have episodes it generally started as follows. He notes a sensation of anxiety and then he will feel like he is hyperventilating. it will then feel that his fingers or spasms or cramping out and then he develops abdominal pain. This epigastric abdominal pain is usually followed by prolific vomiting. the patient also smokes significant amounts of Marijuana,-, he notes 2 bowls per day. He states that if he is coming off his medicines or smoked marijuana and then got them on November 26. Large amounts of food and then the next morning gets anxious, he will vomit a significant amount of his relatively undigested food. This last episode of vomiting began when the patient had a phone call with his father who basically told him he would not amount to anything. The patient then became anxious and had the onset of these symptoms as he is prone to do. He noted blood in his vomitus towards the end of his retching episodes. He denies any significant change in bowel habits. He notes no melena or hematochezia. He notes no family history of colon problems. Past Medical History Past Medical History (Chronic Problems): Chronic Problems Cannabis abuse (Chronic) Insomnia (Chronic) Depression (Chronic) Anxiety (Chronic) Noncompliance with medication regimen (Chronic) Allergies No Known Allergies Allergy (Verified 10/13/17 10:19) Home Medications: Ambulatory Orders Medication Instructions Recorded ALPRAZolam [Xanax] 1 mg PO BID 10/10/17 Quetiapine Fumarate [Seroquel] 200 mg PO QHS 10/10/17 Sertraline HCl [Zoloft] 150 mg PO QHS 10/10/17 traZODone [Desyrel] 50 mg PO QHS 10/10/17 Ondansetron [Zofran Odt] 4 mg PO Q8H PRN PRN #9 tab 10/11/17 Surgical History: tonsillectomy Psychiatric History: Anxiety, Depression Smoking Status: Current some day smoker - *Family History Maternal History Items: No pertinent history Paternal History Items: COPD, Heart Disease Review of Systems Constitutional: Denies: Chills, Fever, Weight Change HEENT: Denies: Head Aches, Sinus Congestion, Sinus Drainage Cardiovascular: Denies: Chest Pain, Palpitations Respiratory: Denies: Cough, Shortness of breath at rest, Sputum production Gastrointestinal: Reports: Hematemesis, Nausea, Vomiting. Denies: Abdominal Pain Genitourinary: Denies: Dysuria Musculoskeletal: Denies: Joint Pain, Joint Tenderness Skin: Denies: Rash, Wounds Neurological: Denies: Numbness, Tingling, Focal weakness Psychiatric: Denies: Anxiety, Depression, Homicidal Ideations, Suicidal Ideations Hematologic/ Lymphatic: Denies: Easy Bruising, Easy Bleeding - Physical Exam General: Alert, Oriented x3, Cooperative HEENT: Atraumatic, PERRLA, EOMI, Normocephalic Neck: Supple, No JVD, Negative Carotid Bruits Lungs: Clear to auscultation, Normal air movement Cardiovascular: Regular rate, No murmurs Abdomen: Bowel Sounds Present, Soft, Non Tender Extremities: No edema, Capillary Refill Less than 3 Seconds Skin: No rashes, No breakdown Musculoskeletal: No Tenderness to Palpation of Joints or Extremities Neurological: Cranial nerves II-XII grossly intact Psych/Mental Status: Normal Affect, Appropriate Vital Signs Temp Pulse Resp BP Pulse Ox 98.6 F 60 16 138/82 H 98 10/14/17 08:55 10/14/17 08:55 10/14/17 08:55 10/14/17 08:55 10/14/17 08:55 Oxygen Delivery Method Room Air Weight: 88.9 kg Body Mass Index (BMI) 25.8 Intake and Output for Last 24 Hours 10/12/17 10/13/17 10/14/17 23:59 23:59 23:59 Intake Total 2811 / 2811 1139 / 1139 Balance 2811 / 2811 1139 / 1139 Laboratory Tests Past 24 Hrs 10/14/17 10/14/17 05:30 05:30 WBC 7.6 RBC 4.20 L Hgb 12.7 L Hct 36.7 L MCV 87.4 MCH 30.2 MCHC 34.6 RDW 13.5 RDW Differential 42.2 Plt Count 256 MPV 10.1 Immature Gran % (Auto) 0.100 Neut % (Auto) 50.4 Lymph % (Auto) 36.6 Pershing % (Auto) 11.5 H Eos % (Auto) 1.0 Baso % (Auto) 0.4 Absolute Neuts (auto) 3.8 Absolute Lymphs (auto) 2.79 Total Counted Not Reportable Sodium 145 Potassium 3.7 Chloride 111 H Carbon Dioxide 26.0 Anion Gap 8 BUN 8 Creatinine 0.86 Estim Creat Clear Calc 141.94 Est GFR (MDRD) Af Amer 134 Est GFR (MDRD) Non-Af 110 BUN/Creatinine Ratio 9.3 L Glucose 91 Calcium 8.4 L Total Bilirubin 0.80 AST 19 ALT 20 Alkaline Phosphatase 57 Total Protein 6.6 Albumin 3.9 Globulin 2.7 Albumin/Globulin Ratio 1.4 Assessment/Plan anxiety, depression, episodic vomiting, likely secondary to stress and anxiety. Episode of hematemesis, no colon changes I feel it is reasonable proceed with upper endoscopy. I do not feel that lower endoscopy is indicated at this time. I discussed with the patient the risks, benefits, complications, and possible alternatives of endoscopy. The patient consents to the planned procedure. Since he is on multiple antidepressant anxiety medications, I feel my ability to sedate him with fentanyl and Versed as limited and therefore we'll plan for monitored anesthetic care. I discussed with the patient and the patient's mother extensively. However, his symptoms sound more like anxiety related vomiting then truly a definition of cyclic vomiting. He currently sees a psychiatrist who monitors his anti-anxiety and antidepressant medications. As noted briefly in the patient's history of present illness, there are multiple issues exist, which likely need to be addressed from a psychiatric standpoint related to his anxiety and depression issues, which I feel will do more to improve his vomiting than any other specific event.
== END 2017-10-18 12:50 | disposition home or self-care (01) ==
LOC: EN 10:07 → AC 10:09
PROVIDERS: Visit Provider Surgery
PROC: 0DJ08ZZ Inspection of Upper Intestinal Tract, Via Natural or Artificial Opening Endoscopic (ICD-10-PCS; CPT 43235; principal; 2017-10-18 11:25)
DX: K29.70 Gastritis, unspecified, without bleeding (principal); K20.9 Esophagitis, unspecified; G43.A0 Cyclical vomiting, in migraine, not intractable; F32.9 Major depressive disorder, single episode, unspecified; F41.9 Anxiety disorder, unspecified; F31.9 Bipolar disorder, unspecified; F12.10 Cannabis abuse, uncomplicated; Z91.14 Patient's other noncompliance with medication regimen; Z79.899 Other long term (current) drug therapy; F17.200 Nicotine dependence, unspecified, uncomplicated
CPT/HCPCS: 43239; 88305; 88342; J7120; J2405

== ENCOUNTER 2017-10-18 14:22 | Emergency (ER) | payer SELFPAY ==
[2017-10-18 14:23] VITALS: BP 145/70; PULSE 106; RESP 22; TEMP 37.2; O2SAT 97; BMI 24.4
--- NOTE | 2017-10-18 14:48 | ED.VISSUMM ---
- ER Visit Summary Date of Service: 10/18/17 Chief Complaint: Anxiety History of Present Illness: The patient is a 32 M presenting with anxiety. Patient states that he is having difficulty dealing with his anxiety at home. He has had nausea and vomiting. He has been admitted to the hospital. This morning he had an EGD which showed mild gastritis. He states that he was very upset with these results because he now realizes that his symptoms of nausea and vomiting are likely all related to his anxiety. He was expecting to have a physical cause of his vomiting. He states he does not want to go on but does not have a plan for suicide. He states he wants to go to a psychiatric hospital for help. Parents called the counseling center and were advised to come to the ED for further evaluation. Physical Examination: Vitals are stable. Patient is afebrile. Alert no acute distress. HEENT exam is unremarkable. Neck is supple. Lungs are clear and equal bilaterally. Heart is regular and tachycardic Abdomen is soft mild diffuse tenderness, no rebound or guarding. Extremities are unremarkable. Skin is warm and dry. No focal neurologic deficit. Anxious Remainder of exam is unremarkable. Emergency Department Course and Treatment: CBC, chemistries unremarkable other than potassium of 3.2. He was given potassium oral replacement. Tox positive for benzos and THC. Alcohol negative. Discussed with the counseling center for evaluation. Disposition: Per counseling center Impression: Anxiety, substance abuse This note was generated with [employer] dictation software. It may contain incorrect words, spelling, and punctuation that were not noted in review of the chart prior to signing ED Disposition - Plan for ED Patient: Chief Complaint: Mental Health Referrals: NOT,DEFINED [NON-STAFF] -
[2017-10-18 15:09] LABS: Absolute Lymphocyte Count 1.01 X10^3/ul (0.83-4.51); Absolute Neutrophil Count 6.7 X10^3/uL (2.0-7.7); Basophil# 0.03 X10^3/uL; Basophil% 0.4 % (0-1); Hematocrit 41.2 % (40-54); Hemoglobin 14.5 g/dl (13.0-16.5); Lymphocyte # 1.01 X10^3/ul (4.0); Lymphocyte % 12.1 % (19-41); Mean Corp Hgb Conc 35.2 g/gl (32-36); Mean Corpuscular Volume 85.1 fL (80-94); Mean Platelet Vol. 9.2 fl (6.2-12.0); Monocyte# 0.63 X10^3/uL; Monocyte% 7.5 % (0-10); Neutrophil # 6.68 X10^3/uL (2.7-7.7); Neutrophil % 79.9 % (47-70); POSITIVE COUNT NO; POSITIVE DIFFERENTIAL NO; POSITIVE MORPHOLOGY NO; Platelet Count 272 K/mm3 (150-450); RBC Distribution Width CV 13.1 % (11.6-14.6); RBC Distribution Width SD 40.8 fl (35.1-43.9); Red Blood Count 4.84 M/mm3 (4.6-6.2); White Blood Count 8.4 K/mm3 (4.4-11.0)
[2017-10-18 15:53] LABS: ALB/GLOB Ratio 1.5 RATIO (0.9-2.4); AST(SGOT) 13 U/L (15-37); Alanine Aminotransfer ALT/SGPT 23 U/L (16-61); Albumin, Serum 4.8 g/dL (3.2-5.0); Alkaline Phosphatase 68 U/L (45-117); Anion Gap 10 (5-15); BUN 10 mg/dL (7-18); BUN/Creat Ratio 7.8 RATIO (10-20); Calcium,Total 9.8 mg/dL (8.5-10.1); Chloride 103 mmol/L (98-107); Creatinine, Serum 1.29 mg/dL (0.70-1.30); EST Glomerular Filtration Rate 69 mL/min (>60); Est Glom Filt Rate - Afr Amer 84 mL/min (>60); Estimated Creatinine Clearance 94.63 ml/min; Globulin 3.3 g/dL (2.2-4.2); Glucose 81 mg/dL (74-106); Potassium 3.2 mmol/L (3.5-5.1); Protein, Total 8.1 g/dL (6.4-8.2); Sodium Level 137 mmol/L (136-145)
[2017-10-18 15:59] LABS: Alcohol, Blood (Medical)-Serum < 3.0 mg/dL
[2017-10-18 16:06] LABS: Amphetamine Urine VISTA NEGATIVE (<1000 ng/mL); Barbiturate Urine VISTA NEGATIVE (< 200 ng/mL); Benzodiazepine Urine VISTA POSITIVE (< 200 ng/mL); Cocaine Urine VISTA NEGATIVE (< 300 ng/mL); Ecstacy Urine VISTA NEGATIVE (< 500 ng/mL); Methadone Urine VISTA NEGATIVE (< 300 ng/mL); PCP Urine VISTA NEGATIVE (< 25 ng/mL); THC Urine VISTA POSITIVE (< 50 ng/mL); Vista UDS pH Range 7
--- NOTE | 2017-10-18 16:09 | ED.RN ---
CALLED [facility]SELING CENTER FOR PATIENT. EHAVEN DURAND WILL BE COMING OVER AROUND 4:30.
--- NOTE | 2017-10-18 16:26 | ED.RN ---
pt and mother yelled at this nurse because they dont' understand why he has to take his potassium orally, why can't we give it through an iv. pt spit oral potassium out, md aware, no new orders given. pt and mother also yelled at this nurse because the pt has not been given anything for anxiety.
[2017-10-18] MEDS: LORazepam 0.5 MG Tablet PO (16:31)
[2017-10-18 17:30] VITALS: BP 132/85; PULSE 99; O2SAT 97
--- NOTE | 2017-10-18 18:08 | EKG12_ITS ---
Test Reason : MEDICAL CLEARANCE Blood Pressure : / mmHG Vent. Rate : 094 BPM Atrial Rate : 094 BPM P-R Int : 128 ms QRS Dur : 082 ms QT Int : 426 ms P-R-T Axes : 068 068 062 degrees QTc Int : 532 ms Normal sinus rhythm Prolonged QT Abnormal ECG Confirmed by KETAN TURNER, ELVA ([id number]), mapping editor DEMETRI SMITH ([id number]) on 10/22/2017 3:19:43 PM Referred By: NUZHAT Confirmed By:ELVA ACEVES MD
--- NOTE | 2017-10-18 18:25 | ED.DEP ---
ED Disposition - Plan for ED Patient: Chief Complaint: Mental Health Instructions: Understanding Generalized Anxiety Disorder (TITO) Referrals: NOT,DEFINED [NON-STAFF] - Counseling,Center [GROUP OF PHYSICIANS] -
[2017-10-18 18:34] VITALS: BP 142/85; PULSE 88; RESP 15; O2SAT 94
== END 2017-10-18 18:35 | disposition home or self-care (01) ==
LOC: ED 15:03
PROVIDERS: Emergency Provider Emergency Medicine
DX: F41.9 Anxiety disorder, unspecified (principal); F19.10 Other psychoactive substance abuse, uncomplicated; K29.70 Gastritis, unspecified, without bleeding; F32.9 Major depressive disorder, single episode, unspecified; Z79.899 Other long term (current) drug therapy; Z72.0 Tobacco use
CPT/HCPCS: 36415; 80053; 80307; 80320; 85025; 93005; 99282; G0480

== ENCOUNTER 2017-10-19 02:10 | Emergency (ER) | payer SELFPAY ==
[2017-10-19 02:11] VITALS: BP 160/115; PULSE 73; RESP 20; TEMP 37.2; O2SAT 97; BMI 19.9
--- NOTE | 2017-10-19 02:20 | ED.DCSUM_ITS ---
- ER Visit Summary Date of Service: 10/19/17 Chief Complaint: Nausea, vomiting History of Present Illness: The patient is a 32 M presents with nausea and vomiting. The patient has history of cyclic vomiting syndrome. He actually just had EGD done yesterday morning that showed gastritis. He has been admitted 3 times within the past week for nausea and vomiting. He was seen here earlier for increased anxiety. The patient was actually going to be transferred to [facility], but refused admission at that time and went home. Since then, he has had persistent nausea and vomiting. There is been no blood in the emesis. He has had some cramping abdominal pain. He states this feels like his normal flare of his symptoms. He denies any fevers or chills. He was unable to keep his medications down tonight. Physical Examination: Vital signs reviewed General: Well-nourished, well-developed Head: Normocephalic, atraumatic Eyes: Pupils equal and reactive, extraocular muscles intact Neck, supple, no lymphadenopathy Heart: Regular rate and rhythm Respiratory: No distress, clear bilaterally Abdomen: Soft, nontender, nondistended, no peritoneal signs Back: Nontender Extremities: Nontender, no edema, no cords Skin: Normal color no rash Neuro: Alert and oriented, no focal or lateralizing deficits Test Results: [] Emergency Department Course and Treatment: The patient presents with a cyclic vomiting syndrome. He really has no focal tenderness on his abdomen. IV was established. Patient was given fluids, Ativan, Zofran, and Geodon. I did obtain labs. His potassium is mildly decreased but they are otherwise unremarkable. There is no evidence of acute kidney injury. Patient was sleeping comfortably. He continues to have benign abdomen. At this time, I feel that he is safe for discharge. This is an exacerbation of his chronic process. He was counseled to avoid marijuana. The patient will be discharged home. Treatment Plan: [] Disposition: Discharge Impression:. Cyclic vomiting syndrome This note was generated with [employer] dictation software. It may contain incorrect words, spelling, and punctuation that were not noted in review of the chart prior to signing ED Disposition - Plan for ED Patient: Chief Complaint: Nausea/Vomiting Instructions: ED Nausea Vomiting Referrals: Care Physician,No Primary [Primary Care Provider] -
[2017-10-19] MEDS: Ziprasidone IM 20 MG/ML VIAL IM (02:56)
[2017-10-19] MEDS: 0.9% Normal Saline 1,000 ML 1000 ML IV (02:56)
[2017-10-19] MEDS: LORazepam 2 MG/ML Syringe IV (02:56)
[2017-10-19] MEDS: Ondansetron 4 MG/2 ML Vial IV (02:56)
[2017-10-19 03:11] LABS: Absolute Lymphocyte Count 1.48 X10^3/ul (0.83-4.51); Absolute Neutrophil Count 5.4 X10^3/uL (2.0-7.7); Basophil# 0.03 X10^3/uL; Basophil% 0.4 % (0-1); Eosinophil# 0.05 X10^3/uL; Eosinophils% 0.6 % (0-5); Hematocrit 43.3 % (40-54); Hemoglobin 15.8 g/dl (13.0-16.5); Lymphocyte # 1.48 X10^3/ul (4.0); Lymphocyte % 18.8 % (19-41); Mean Corp Hgb Conc 36.5 g/gl (32-36); Mean Corpuscular Hgb 30.4 pg (27.0-32.0); Mean Corpuscular Volume 83.3 fL (80-94); Mean Platelet Vol. 9.9 fl (6.2-12.0); Monocyte# 0.97 X10^3/uL; Monocyte% 12.3 % (0-10); Neutrophil # 5.35 X10^3/uL (2.7-7.7); Neutrophil % 67.8 % (47-70); Platelet Count 328 K/mm3 (150-450); RBC Distribution Width CV 13.1 % (11.6-14.6); White Blood Count 7.9 K/mm3 (4.4-11.0)
[2017-10-19 03:12] LABS: POSITIVE COUNT NO; POSITIVE DIFFERENTIAL NO; POSITIVE MORPHOLOGY NO
[2017-10-19 03:29] LABS: ALB/GLOB Ratio 1.6 RATIO (0.9-2.4); AST(SGOT) 9 U/L (15-37); Alanine Aminotransfer ALT/SGPT 25 U/L (16-61); Albumin, Serum 5.3 g/dL (3.2-5.0); Alkaline Phosphatase 76 U/L (45-117); Anion Gap 14 (5-15); BUN 14 mg/dL (7-18); BUN/Creat Ratio 10.9 RATIO (10-20); Calcium,Total 10.3 mg/dL (8.5-10.1); Chloride 101 mmol/L (98-107); Creatinine, Serum 1.28 mg/dL (0.70-1.30); EST Glomerular Filtration Rate 70 mL/min (>60); Est Glom Filt Rate - Afr Amer 85 mL/min (>60); Estimated Creatinine Clearance 81.86 ml/min; Globulin 3.4 g/dL (2.2-4.2); Glucose 102 mg/dL (74-106); Lipase 107 U/L (73-393); Potassium 3.1 mmol/L (3.5-5.1); Protein, Total 8.7 g/dL (6.4-8.2); Sodium Level 136 mmol/L (136-145)
[2017-10-19 03:49] VITALS: BP 117/65; PULSE 82; RESP 16; O2SAT 98
== END 2017-10-19 03:51 | disposition home or self-care (01) ==
LOC: ED 02:48
PROVIDERS: Emergency Provider Emergency Medicine
DX: G43.A0 Cyclical vomiting, in migraine, not intractable (principal); K29.70 Gastritis, unspecified, without bleeding; K21.9 Gastro-esophageal reflux disease without esophagitis; F41.9 Anxiety disorder, unspecified; F12.90 Cannabis use, unspecified, uncomplicated; Z79.899 Other long term (current) drug therapy
CPT/HCPCS: 80053; 83690; 85025; 96361; 96372; 96374; 96375; 99285; J7030; J2405; J3486

== ENCOUNTER 2017-10-21 10:20 | Emergency (ER) | payer SELFPAY ==
[2017-10-21 10:20] VITALS: BP 157/100; PULSE 118; RESP 18; TEMP 36.2; O2SAT 97
--- NOTE | 2017-10-21 10:36 | ED.DCSUM_ITS ---
- ER Visit Summary Date of Service: 10/21/17 Chief Complaint: Nausea and vomiting History of Present Illness: The patient is a 32 M who returns again with nausea and vomiting. Started last night. He states he did smoke marijuana last night. He states he tried to quit but it was too tough so he decided smoke again. He had multiple episodes of vomiting. He has diffuse crampy abdominal pain. He tried Phenergan, oral and suppositories. He also tried Nexium and Xanax without any relief. He denies fevers. He did have a EGD recently which showed gastritis. Physical Examination: Vital signs reviewed. HEENT exam unremarkable. Heart is regular rate and rhythm without murmurs. Lungs are clear to auscultation. Abdomen is soft diffuse tenderness to palpation. No guarding or rebound tenderness. Extremities reveal no edema. Skin exam normal. Neurologic exam normal. Test Results: None performed Emergency Department Course and Treatment: Bentyl, Zofran, Ativan as well as Thorazine and Benadryl. He states that he feels better. I informed him that smoking marijuana is not helping his case that he needs to stop smoking this and that will probably help his symptoms. He needs to follow-up with his outpatient doctors including his mental health physicians to get his anxiety under control which I feel is likely contributing to these symptoms as well. He has anti-emetics at home that he can use Treatment Plan: [] Disposition: Discharge Impression: Vomiting, anxiety, marijuana abuse This note was generated with [employer] dictation software. It may contain incorrect words, spelling, and punctuation that were not noted in review of the chart prior to signing ED Disposition - Plan for ED Patient: Chief Complaint: Nausea/Vomiting Referrals: Care Physician,No Primary [Primary Care Provider] -
[2017-10-21] MEDS: Ondansetron 4 MG/2 ML Vial IV (10:59)
[2017-10-21] MEDS: LORazepam 2 MG/ML Syringe 0.5 MG IV (10:59)
[2017-10-21] MEDS: Dicyclomine 20 MG/2 ML Vial IM (10:59)
--- NOTE | 2017-10-21 12:33 | ED.DEP ---
ED Disposition - Plan for ED Patient: Disposition: Home or Assisted Living Chief Complaint: Nausea/Vomiting Instructions: ED Nausea Vomiting Referrals: Care Physician,No Primary [Primary Care Provider] -
[2017-10-21 12:50] VITALS: BP 129/84; PULSE 101; RESP 16; O2SAT 98
== END 2017-10-21 12:51 | disposition home or self-care (01) ==
PROVIDERS: Emergency Provider Emergency Medicine
DX: R11.10 Vomiting, unspecified (principal); F41.9 Anxiety disorder, unspecified; F12.10 Cannabis abuse, uncomplicated; K29.70 Gastritis, unspecified, without bleeding; Z79.899 Other long term (current) drug therapy
CPT/HCPCS: 96365; 96372; 96374; 96375; 99282; A4216; J2405; J3490

== ENCOUNTER 2017-10-24 17:28 | Emergency (ER) | payer SELFPAY ==
[2017-10-24 17:29] VITALS: BP 145/97; PULSE 117; RESP 169; TEMP 36.8; O2SAT 97; BMI 23.7
--- NOTE | 2017-10-24 17:55 | RAD_ITS ---
STUDY: X-RAY - RIGHT HAND REASON FOR EXAM: Male, 32 years old. Punched a wall TECHNIQUE: 3 view(s) of the hand. COMPARISON: None. FINDINGS: Normal radiocarpal articulation. Normal distal radioulnar joint. Normal visualized carpal bones. Normal carpal articulations Normal carpometacarpal articulation of the thumb. Normal second through fifth carpometacarpal joints. Normal metacarpi. Normal metacarpophalangeal joint of the thumb. Normal interphalangeal joint of the thumb. Normal proximal and distal phalanges of the thumb. Normal metacarpophalangeal joints of the second through fifth fingers. Normal proximal and distal interphalangeal joints of the second through fifth fingers. Normal phalanges of the second through fifth fingers. The soft tissue structures are unremarkable. RAD/Hand Min 3 Views IMPRESSION: Normal x-ray examination of the hand. Electronically Signed: Faye Lara MD at 18:39 EDT , Service support ,
--- NOTE | 2017-10-24 17:57 | ED.DCSUM_ITS ---
- ER Visit Summary Date of Service: 10/24/17 Chief Complaint: Suicidal ideation History of Present Illness: The patient is a 32 M presenting with suicidal ideation. Patient states he does not want to go on anymore. He is very anxious. He states his father told him that he needed to find a new father. He punched a door with both hands. He states he wants to run away and he does not care what happens to him. He was recently seen by the counseling center and has an appointment next week. He has a history of addiction to marijuana. He is a smoker. Denies alcohol use. Physical Examination: Vitals are stable. Patient is afebrile. Alert no acute distress. HEENT exam is unremarkable. Neck is supple. Lungs are clear and equal bilaterally. Heart is regular rate and rhythm. Abdomen is soft nontender nondistended. Extremities abrasion to the right small finger and left finger. Active full range of motion. Skin is warm and dry. No focal neurologic deficit. Anxious, suicidal ideation Remainder of exam is unremarkable. Emergency Department Course and Treatment: Patient was given tetanus IM. Wounds were cleaned and dressed. Bilateral hand x-ray showed no acute process. CBC is unremarkable. Chemistries show potassium 2.5. Tox positive for benzos and THC. Alcohol negative. He is given potassium IV replacement. This will be rechecked. Discussed with the counseling center for evaluation. Disposition: Per counseling center Impression: Suicidal ideation, hypokalemia This note was generated with [employer] dictation software. It may contain incorrect words, spelling, and punctuation that were not noted in review of the chart prior to signing ED Disposition - Plan for ED Patient: Chief Complaint: Suicidal Referrals: Care Physician,No Primary [Primary Care Provider] -
[2017-10-24] MEDS: Diphth,Pertuss(Acell),Tet Vac 0.5 ML Vial IM (18:07)
--- NOTE | 2017-10-24 18:24 | RAD_ITS ---
STUDY: X-RAY - LEFT HAND REASON FOR EXAM: Male, 32 years old. PUNCHED A WALL TECHNIQUE: 3 view(s) of the hand. COMPARISON: None. FINDINGS: Normal radiocarpal articulation. Normal distal radioulnar joint. Normal visualized carpal bones. Normal carpal articulations Normal carpometacarpal articulation of the thumb. Normal second through fifth carpometacarpal joints. Normal metacarpi. Normal metacarpophalangeal joint of the thumb. Normal interphalangeal joint of the thumb. Normal proximal and distal phalanges of the thumb. Normal metacarpophalangeal joints of the second through fifth fingers. Normal proximal and distal interphalangeal joints of the second through fifth fingers. Normal phalanges of the second through fifth fingers. The soft tissue structures are unremarkable. RAD/Hand Min 3 Views IMPRESSION: Normal x-ray examination of the hand. Electronically Signed: Faye Lara MD at 18:39 EDT , Service support ,
[2017-10-24 18:26] LABS: Absolute Lymphocyte Count 1.91 X10^3/ul (0.83-4.51); Absolute Neutrophil Count 5.4 X10^3/uL (2.0-7.7); Basophil# 0.04 X10^3/uL; Basophil% 0.5 % (0-1); Eosinophil# 0.17 X10^3/uL; Hematocrit 40.2 % (40-54); Hemoglobin 14.6 g/dl (13.0-16.5); Lymphocyte # 1.91 X10^3/ul (4.0); Lymphocyte % 22.9 % (19-41); Mean Corp Hgb Conc 36.3 g/gl (32-36); Mean Corpuscular Hgb 30.2 pg (27.0-32.0); Mean Corpuscular Volume 83.1 fL (80-94); Mean Platelet Vol. 9.5 fl (6.2-12.0); Monocyte# 0.83 X10^3/uL; Neutrophil # 5.37 X10^3/uL (2.7-7.7); Neutrophil % 64.5 % (47-70); POSITIVE COUNT NO; POSITIVE DIFFERENTIAL NO; POSITIVE MORPHOLOGY NO; Platelet Count 292 K/mm3 (150-450); RBC Distribution Width CV 12.9 % (11.6-14.6); RBC Distribution Width SD 38.9 fl (35.1-43.9); Red Blood Count 4.84 M/mm3 (4.6-6.2); White Blood Count 8.3 K/mm3 (4.4-11.0)
[2017-10-24 18:34] LABS: Alcohol, Blood (Medical)-Serum < 3.0 mg/dL
--- NOTE | 2017-10-24 18:36 | CT_ITS ---
STUDY: CT BRAIN WITHOUT CONTRAST REASON FOR EXAM: Male, 32 years old. Suicidal RADIATION DOSAGE (If Supplied By Facility): CTDIvol = ( 44.99 ) mGy, DLP = ( 762.36 ) mGycm TECHNIQUE: Transaxial CT imaging of the brain was performed without administration of intravenous contrast material. Individualized dose optimization techniques were used for this CT. COMPARISON: None. FINDINGS: Normal soft tissue structures. Normal calvarium. Normal size ventricles and extra-axial spaces for the patient's age. Normal white matter tracts of the cerebral hemispheres. Normal basal ganglia and thalami. Normal brainstem. Normal cerebellum. There is no intracranial hemorrhage. There are no findings of an acute ischemic infarction. Normal visualized paranasal sinuses. CT/Brain/Head without Contrast IMPRESSION: Normal unenhanced CT scan of the brain. Electronically Signed: Faye Lara MD at 19:07 EDT , Service support ,
[2017-10-24 18:49] VITALS: BP 128/96; PULSE 85; O2SAT 96
[2017-10-24 18:52] LABS: Anion Gap 14 (5-15); BUN 11 mg/dL (7-18); BUN/Creat Ratio 11.4 RATIO (10-20); Calcium,Total 9.4 mg/dL (8.5-10.1); Chloride 101 mmol/L (98-107); Creatinine, Serum 0.97 mg/dL (0.70-1.30); EST Glomerular Filtration Rate 97 mL/min (>60); Est Glom Filt Rate - Afr Amer 117 mL/min (>60); Estimated Creatinine Clearance 125.84 ml/min; Glucose 122 mg/dL (74-106); Potassium 2.5 mmol/L (3.5-5.1); Sodium Level 135 mmol/L (136-145)
--- NOTE | 2017-10-24 18:57 | ED.RN ---
potassium of 2.5 reported to
[2017-10-24 18:59] LABS: Amphetamine Urine VISTA NEGATIVE (<1000 ng/mL); Barbiturate Urine VISTA NEGATIVE (< 200 ng/mL); Benzodiazepine Urine VISTA POSITIVE (< 200 ng/mL); Cocaine Urine VISTA NEGATIVE (< 300 ng/mL); Ecstacy Urine VISTA NEGATIVE (< 500 ng/mL); Methadone Urine VISTA NEGATIVE (< 300 ng/mL); PCP Urine VISTA NEGATIVE (< 25 ng/mL); THC Urine VISTA POSITIVE (< 50 ng/mL); Vista UDS pH Range 5
[2017-10-24 21:10] VITALS: BP 126/94; PULSE 87; RESP 20; O2SAT 98
--- NOTE | 2017-10-24 21:40 | EKG12_ITS ---
Test Reason : LOW POTASSIUM Blood Pressure : / mmHG Vent. Rate : 054 BPM Atrial Rate : 054 BPM P-R Int : 124 ms QRS Dur : 096 ms QT Int : 460 ms P-R-T Axes : 026 064 052 degrees QTc Int : 436 ms Sinus bradycardia Otherwise normal ECG Confirmed by TARIK TURNER, GEOVANNY ([id number]), editor publications DEMETRI SMITH ([id number]) on 10/27/2017 2:11:51 PM Referred By: NUZHAT Confirmed By:GEOVANNY MONTANEZ MD
[2017-10-24 22:03] VITALS: BP 138/96; PULSE 87; RESP 16; O2SAT 100
[2017-10-24 22:08] LABS: AST(SGOT) 12 U/L (15-37); Alanine Aminotransfer ALT/SGPT 19 U/L (16-61); Albumin, Serum 4.4 g/dL (3.2-5.0); Alkaline Phosphatase 68 U/L (45-117); Bilirubin, Direct 0.16 mg/dL (0.00-0.30); Globulin 3.1 g/dL (2.2-4.2); Protein, Total 7.5 g/dL (6.4-8.2)
[2017-10-24 23:11] VITALS: BP 125/87; PULSE 67; RESP 16; O2SAT 98
[2017-10-25] VITALS (12 sets, daily range): BP systolic 119–136; BP diastolic 66–88; PULSE 56–89; RESP 13–22; O2SAT 97–100
[2017-10-25] MEDS: Sertraline 50 MG Tablet 150 MG PO (04:59)
[2017-10-25] MEDS: QUEtiapine 100 MG Tablet 200 MG PO (05:01)
[2017-10-25] MEDS: traZODone 50 MG Tablet PO (05:03)
--- NOTE | 2017-10-25 05:05 | ED.RN ---
DR. GIANG ORDERED PATIENT'S HOME MEDICATIONS AT PATIENT'S REQUEST SINCE HE DID NOT RECEIVE THEM. HIS HOME MEDICATION LIST SAID THAT HE TAKES SEROQUEL 200 MG, BUT WHEN I WENT TO GIVE IT TO THE PATIENT HE SAID THAT HIS PSYCHIATRIST LOWERED THE DOSE TO 100 MG. I ONLY GAVE 100 MG TO THE PATIENT AND THIS NURSE WILL LET DR. GIANG KNOW.
--- NOTE | 2017-10-25 08:57 | NURSING ---
CALLED CRISIS, TALKED TO HEAVEN. PATIENT TRANSFER HELD UP BY LAB VALUES
[2017-10-25] MEDS: ALPRAZolam 0.5 MG Tablet 1 MG PO (09:58)
[2017-10-25 12:07] LABS: Potassium 3.5 mmol/L (3.5-5.1)
--- NOTE | 2017-10-25 14:22 | NURSING ---
LIGIA, CRISIS, HERE
--- NOTE | 2017-10-25 15:01 | ED.DEP ---
ED Disposition - Plan for ED Patient: Disposition: Home or Assisted Living Chief Complaint: Suicidal Instructions: ED Depression Referrals: Care Physician,No Primary [Primary Care Provider] -
== END 2017-10-25 15:33 | disposition home or self-care (01) ==
PROVIDERS: Emergency Medicine; Emergency Provider Emergency Medicine
DX: R45.851 Suicidal ideations (principal); E87.6 Hypokalemia; S60.416A Abrasion of right little finger, initial encounter; S60.413A Abrasion of left middle finger, initial encounter; F41.9 Anxiety disorder, unspecified; F32.9 Major depressive disorder, single episode, unspecified; F31.9 Bipolar disorder, unspecified; W22.8XXA Striking against or struck by other objects, initial encounter; Y93.9 Activity, unspecified; Y92.9 Unspecified place or not applicable; F12.20 Cannabis dependence, uncomplicated; F17.200 Nicotine dependence, unspecified, uncomplicated; Z79.899 Other long term (current) drug therapy
CPT/HCPCS: 36415; 70450; 73130; 80048; 80076; 80307; 80320; 84132; 85025; 90715; 93005; 96365; 96366; 99285; J7030; J7040; A4216; G0480

== ENCOUNTER 2018-02-27 12:55 | Emergency (ER) | payer SELFPAY ==
[2018-02-27 12:56] VITALS: BP 144/84; PULSE 123; RESP 18; TEMP 36.9; O2SAT 98; BMI 24.4
--- NOTE | 2018-02-27 13:57 | ED.DCSUM_ITS ---
- ER Visit Summary Date of Service: 02/27/18 Chief Complaint: [] Vomiting after eating [employer] food History of Present Illness: The patient is a 32 M [] patient believes around night late he ate quite a bit of [employer] food that he normally makes him sick but he was hungry. He indicates he woke that morning and began vomiting undigested [employer] food that he had eaten the night before and is persistent having vomiting initially had diarrhea that is resolved He has a history of nonspecific stomach elements and indicates an extensive prior evaluation including with EGD ultrasound CAT scan he does take Nexium, he indicates that he has had only exposure to the [employer] food no antibiotics no other individuals who have been ill the fluid was not obviously tainted in any way but he states he simply cannot tolerate the [employer] food but he ate it anyway and it is common for him to vomit after he eats this type of food Physical Examination: [] His heart rate is 130 he states is also very anxious as anxiety but he has been taking meds his oral cavity is unremarkable his neck is supple lungs are clear heart tones are normal 120 abdomen soft nontender upper lower extreme is unremarkable skin is unremarkable clinically looks well is actually able to take oral liquids Test Results: [] Emergency Department Course and Treatment: [] His complaints screening labs IV fluids will be obtained his complete nontender abdomen and prior negative workup by his reports Patient's labs are generally unremarkable to him please see those reports he received IV fluids, he is taking oral fluids he feels well for discharge now I have asked him to avoid eating any type of fast food Yasmany a bland healthy diet he is prescribed Zofran follow-up his family physicians and return for change in symptoms Treatment Plan: [] Disposition: [] Home stable Impression: [] Vomiting after eating fast food as above improved to resolved This note was generated with [employer] dictation software. It may contain incorrect words, spelling, and punctuation that were not noted in review of the chart prior to signing ED Disposition - Plan for ED Patient: Chief Complaint: Nausea/Vomiting/Diarrhea Referrals: Care Physician,No Primary [Primary Care Provider] -
[2018-02-27] MEDS: 0.9% Normal Saline 1,000 ML 1000 ML IV (13:58)
[2018-02-27] MEDS: Morphine 4 MG/ML Syringe IV (13:58)
[2018-02-27] MEDS: Ondansetron 4 MG/2 ML Vial IV (13:58)
[2018-02-27 14:07] LABS: AST(SGOT) 246 U/L (15-37); Alanine Aminotransfer ALT/SGPT 89 U/L (16-61); Albumin, Serum 5.3 g/dL (3.2-5.0); Alkaline Phosphatase 87 U/L (45-117); Anion Gap 17 (5-15); BUN 43 mg/dL (7-18); BUN/Creat Ratio 22.8 RATIO (10-20); Bilirubin, Direct 0.17 mg/dL (0.00-0.30); Calcium,Total 10.5 mg/dL (8.5-10.1); Chloride 92 mmol/L (98-107); Creatinine, Serum 1.89 mg/dL (0.70-1.30); EST Glomerular Filtration Rate 45 mL/min (>60); Est Glom Filt Rate - Afr Amer 54 mL/min (>60); Estimated Creatinine Clearance 64.59 ml/min; Globulin 4.3 g/dL (2.2-4.2); Glucose 122 mg/dL (74-106); Lipase 131 U/L (73-393); Potassium 3.2 mmol/L (3.5-5.1); Protein, Total 9.6 g/dL (6.4-8.2); Sodium Level 131 mmol/L (136-145)
[2018-02-27 14:12] LABS: Absolute Lymphocyte Count 1.97 X10^3/ul (0.83-4.51); Absolute Neutrophil Count 8.7 X10^3/uL (2.0-7.7); Basophil# 0.01 X10^3/uL; Basophil% 0.1 % (0-1); Hematocrit 46.3 % (40-54); Lymphocyte # 1.97 X10^3/ul (4.0); Mean Platelet Vol. 10.3 fl (6.2-12.0); Monocyte# 1.55 X10^3/uL; Monocyte% 12.6 % (0-10); Neutrophil # 8.73 X10^3/uL (2.7-7.7); Neutrophil % 71.1 % (47-70); POSITIVE COUNT NO; RBC Distribution Width SD 39.1 fl (35.1-43.9); Red Blood Count 5.58 M/mm3 (4.6-6.2); White Blood Count 12.3 K/mm3 (4.4-11.0)
[2018-02-27 14:13] LABS: Hemoglobin 16.6 g/dl (13.0-16.5); Mean Corp Hgb Conc 35.8 g/gl (32-36); Mean Corpuscular Hgb 29.6 pg (27.0-32.0)
[2018-02-27 14:14] LABS: Platelet Count 284 K/mm3 (150-450)
[2018-02-27 14:40] LABS: Bacteria 0 SEEN /hpf (None Seen); Mucous, Urine 0 SEEN /hpf (<or=2+); Red Blood Cells-Urine 0 SEEN /hpf (0-5)
[2018-02-27 14:45] LABS: Color, Urine Yellow (Yellow); Glucose, Dipstick Normal (Normal); Ketone-Dipstick 50 mg/dl (Negative); Leukocyte Esterase-Dipstick 25 /ul (Negative); Nitrite-Dipstick Negative (Negative); Occult Blood-Urine 50 /ul (Negative); Protein-Dipstick 100 mg/dl (Negative); Urine Clarity Sl. Cloudy (Clear); Urine Urobilinogen 1 mg/dl (Normal)
[2018-02-27 14:53] LABS: Urine Bilirubin Dipstick 1 mg/dL (Negative)
[2018-02-27 14:54] LABS: Hyaline Cast 0-5 SEEN /lpf (0-5); Squamous Epithelial Cells - UA 0-5 SEEN /hpf (0-5); White Blood Cells 0-5 SEEN /hpf (0-5); White Cell Cast 0-5 SEEN /lpf (None Seen)
[2018-02-27 14:55] VITALS: BP 132/78; PULSE 91; RESP 18; O2SAT 99
--- NOTE | 2018-02-27 15:01 | ED.DEP ---
ED Disposition - Plan for ED Patient: Chief Complaint: Nausea/Vomiting/Diarrhea Instructions: ED Diet Vomiting Diarrhea, ED Food Poison Or Gastroenteritis Prescriptions: Ondansetron [Zofran Odt] 4 mg PO Q8H PRN PRN #10 tab PRN Reason: Nausea Referrals: Care Physician,No Primary [Primary Care Provider] -
[2018-02-27] MEDS: 0.9% Normal Saline 1,000 ML 999 ML IV (15:19)
--- NOTE | 2018-02-27 16:26 | ED.RN ---
PT REQUESTED EFFERVESCENT POTASSIUM INSTEAD OF TABLETS, STATES HE CANNOT SWALLOW THOSE BIG ASS PILLS. EFFERVESCENT POTASSIUM ORDERED, PT UNABLE TO DRINK. PO TABLETS REORDERED.
[2018-02-27 17:00] VITALS: BP 128/78; PULSE 89; RESP 16; O2SAT 98
[2018-02-28 00:07] LABS: Differential Indicated SCAN CRITERIA MET; POSITIVE DIFFERENTIAL YES; POSITIVE MORPHOLOGY YES
[2018-02-28 00:56] LABS: Differential Comment SCANNED; Reactive Lymphocyte 2+
[2018-02-28 13:59] LABS: Pathologist Review Reviewed
== END 2018-02-27 17:05 | disposition home or self-care (01) ==
PROVIDERS: Emergency Provider Emergency Medicine
DX: R11.10 Vomiting, unspecified (principal); R19.7 Diarrhea, unspecified; F41.9 Anxiety disorder, unspecified; Z79.899 Other long term (current) drug therapy
CPT/HCPCS: 80048; 80076; 81001; 83690; 85025; 96361; 96374; 96375; 99284; J7030; A4216; J2405

== ENCOUNTER 2018-02-28 07:18 | Observation (INO) | payer SELFPAY ==
[2018-02-28] VITALS (12 sets, daily range): BP systolic 118–148; BP diastolic 62–99; PULSE 58–91; RESP 14–18; TEMP 36.2–37.6; O2SAT 94–100; BMI 23.4; BMI 23.3
--- NOTE | 2018-02-28 07:41 | ED.VISSUMM ---
- ER Visit Summary Date of Service: 02/28/18 Chief Complaint: [Abdominal pain, nausea, vomiting] History of Present Illness: The patient is a 32 M [that presents with abdominal pain, nausea, and vomiting for the last several days. Symptoms started after he ate fast food and began vomiting. He states he was initially seen at [facility] and treated with Zofran and discharged. He was then seen here and received IV fluids and medications. Blood work was performed and he felt improved and was ultimately discharged home. He presents back today due to continued symptoms. He denies any diarrhea. He describes diffuse abdominal pain. No fever or urinary symptoms. He overall appears well and nontoxic. No other complaints.] Physical Examination: [General: The patient appears well and in no apparent distress. Patient is resting comfortably on cart. Skin: Warm, dry, no pallor noted. No rash. Head: Normocephalic, atraumatic Neck: Supple, nontender. Eye: PERRLA, EOMI ENT: Moist mucus membranes, pharynx within normal limits. Cardiovascular: Regular Rate and Rhythm, no gallups or rubs Respiratory: Patient is in no distress, no accessory muscle use, lungs are clear to auscultation, no wheezing, rales or rhonchi Musculoskeletal: normal ROM, no deformity, no tenderness, no swelling. 2+ radial and DP pulses symmetric. GI: Diffuse tenderness to palpation, no masses appreciated. No rebound, guarding, or rigidity noted. Neurological: A&O, normal strength and sensation. Psychiatric: Cooperative] Test Results: [] Emergency Department Course and Treatment: [Patient was given IV fluids, morphine, and Zofran. Blood work and imaging were ordered. The patient's bilirubin, ALT, and AST are elevated. No significant leukocytosis. CT imaging showed a distended gallbladder and possible sludge within the lumen. Patient was sent for ultrasound of the right upper quadrant that showed likely cholelithiasis and a positive sonographic Carcamo sign. Patient initially had improvement of his symptoms and then his pain and nausea returned. He was given further analgesic and antiemetic. I spoke with Dr. Latham, general surgeon, who evaluated the patient in the emergency department and will admit the patient for cholecystectomy. Patient admitted in stable condition.] Treatment Plan: [see above] Disposition: [admission, stable condition] Impression: [Symptomatic cholelithiasis, transaminitis, elevated bilirubin] This note was generated with [employer] dictation software. It may contain incorrect words, spelling, and punctuation that were not noted in review of the chart prior to signing ED Disposition - Plan for ED Patient: Chief Complaint: Abd Pain Referrals: Care Physician,No Primary [Primary Care Provider] -
[2018-02-28] MEDS: Ondansetron 4 MG/2 ML Vial IV ×2 (08:00→18:00)
[2018-02-28] MEDS: Morphine 4 MG/ML Syringe IV (08:00)
[2018-02-28] MEDS: 0.9% Normal Saline 1,000 ML 1000 ML IV (08:00)
[2018-02-28 08:17] LABS: Absolute Neutrophil Count 7.9 X10^3/uL (2.0-7.7); Basophil# 0.03 X10^3/uL; Basophil% 0.3 % (0-1); Eosinophil# 0.03 X10^3/uL; Eosinophils% 0.3 % (0-5); Hematocrit 41.7 % (40-54); Hemoglobin 15.2 g/dl (13.0-16.5); Lymphocyte % 16.8 % (19-41); Mean Corp Hgb Conc 36.5 g/gl (32-36); Mean Corpuscular Hgb 29.8 pg (27.0-32.0); Mean Corpuscular Volume 81.8 fL (80-94); Mean Platelet Vol. 9.9 fl (6.2-12.0); Monocyte# 1.41 X10^3/uL; Monocyte% 12.5 % (0-10); Neutrophil # 7.91 X10^3/uL (2.7-7.7); Neutrophil % 69.8 % (47-70); Platelet Count 290 K/mm3 (150-450); RBC Distribution Width CV 12.8 % (11.6-14.6); RBC Distribution Width SD 38.1 fl (35.1-43.9); White Blood Count 11.3 K/mm3 (4.4-11.0)
[2018-02-28 08:18] LABS: POSITIVE COUNT NO; POSITIVE DIFFERENTIAL NO; POSITIVE MORPHOLOGY NO
[2018-02-28 08:34] LABS: ALB/GLOB Ratio 1.2 RATIO (0.9-2.4); AST(SGOT) 170 U/L (15-37); Alanine Aminotransfer ALT/SGPT 89 U/L (16-61); Albumin, Serum 4.5 g/dL (3.2-5.0); Alkaline Phosphatase 73 U/L (45-117); Anion Gap 14 (5-15); BUN 24 mg/dL (7-18); BUN/Creat Ratio 19.8 RATIO (10-20); Calcium,Total 9.2 mg/dL (8.5-10.1); Chloride 100 mmol/L (98-107); Creatinine, Serum 1.21 mg/dL (0.70-1.30); EST Glomerular Filtration Rate 75 mL/min (>60); Est Glom Filt Rate - Afr Amer 90 mL/min (>60); Estimated Creatinine Clearance 100.88 ml/min; Globulin 3.8 g/dL (2.2-4.2); Glucose 96 mg/dL (74-106); Lipase 123 U/L (73-393); Protein, Total 8.3 g/dL (6.4-8.2); Sodium Level 133 mmol/L (136-145)
--- NOTE | 2018-02-28 09:00 | GALL_PTH ---
PATIENT: JAD DUENAS LOC: MS2 U#:[id number] AGE/SX: 32/M [place] [facility] [id number] [place]/28/[address]: Dr. Morgan Latham MD : [id number] BED: 1 DIS: 03/01/2018 SPEC #: [id number] RECD: 03/01/18 10:27 STATUS: LAURITA REAugie #: [id number] LUIS: 02/28/18 09:[address]: Morgan Latham DEPT: SURGICAL PATHOLOGY RECD BY: Dwayne Cotto ENTERED: 03/01/18 12:12 SP TYPE: SLIM BOATENG DR: Elizabeth Primary Care Phys Tissues: Gallbladder, NOS Procedures: Surgery Specimen Level III HEADER OPERATION: Laparoscopic cholecystectomy PRE-OP DIAGNOSIS: Acute cholecystitis TISSUE SUBMITTED: Gallbladder MICROSCOPIC DIAGNOSIS Gallbladder: Chronic cholecystitis. No stones are identified in the container or in the gallbladder. SJ:erika 03/02/18 MICROSCOPIC DESCRIPTION Slides are reviewed. GROSS DESCRIPTION Received is one container labeled with the patient's name and designated gallbladder. The specimen consists of a gallbladder measuring 7 cm in length and up to 3.5 cm in diameter. The external surface is pink-sevilla, smooth and glistening for the most part. Focally it is granular, hemorrhagic and contains cautery artifact. The gallbladder contains green-yellow mucoid bile. No stones are identified in the container or in the gallbladder. The mucosa is bile-stained and without any mass lesions. The gallbladder wall measures up to 0.3 cm in thickness. Electronic Repair Troubleshooter sections from the gallbladder and the cystic duct are submitted in one cassette. / SJ:rg 03/01/18 TC:3 CPT: 03625
[2018-02-28 09:16] LABS: Bacteria 0 SEEN /hpf (None Seen); Mucous, Urine 0 SEEN /hpf (<or=2+); Red Blood Cells-Urine 0 SEEN /hpf (0-5); White Blood Cells 0 SEEN /hpf (0-5)
[2018-02-28 09:21] LABS: Color, Urine Yellow (Yellow); Glucose, Dipstick Normal (Normal); Ketone-Dipstick 50 mg/dl (Negative); Leukocyte Esterase-Dipstick Negative /ul (Negative); Nitrite-Dipstick Negative (Negative); Occult Blood-Urine Negative /ul (Negative); Protein-Dipstick Negative (Negative); Specific Gravity, Urine 1.005 (1.002-1.030); Urine Bilirubin Dipstick Negative (Negative); Urine Clarity Sl. Cloudy (Clear); Urine Urobilinogen Normal (Normal)
[2018-02-28 09:29] LABS: Squamous Epithelial Cells - UA 0 SEEN /hpf (0-5)
[2018-02-28] MEDS: proMETHazine 25 MG/ML Syringe 12.5 MG IV (12:09)
[2018-02-28] MEDS: HYDROmorphone 1 MG/ML Syringe 0.5 MG IV (12:09)
--- NOTE | 2018-02-28 12:31 | PCM.HP.STD ---
Problem List (1) Acute cholecystitis Status: Acute History of Present Illness Date of Admission: 02/28/18 The patient is a 32 year old M [that presents with abdominal pain, nausea, and vomiting for the last several days. Symptoms started after he ate fast food and began vomiting. He states he was initially seen at [facility] and treated with Zofran and discharged. He was then seen here and received IV fluids and medications. Blood work was performed and he felt improved and was ultimately discharged home. He presents back today due to continued symptoms. He denies any diarrhea. He describes diffuse abdominal pain. No fever or urinary symptoms. Gallbladder ultrasound report showed: Gallbladder: Mildly distended gallbladder. The gallbladder wall measures 3.0 mm. There is a positive sonographic Carcamo's sign. There is no pericholecystic fluid. Echogenic material is seen within the gallbladder lumen suggestive of sludge. Tiny gallstones cannot be excluded. Common Bile Duct (C.B.D.): The common bile duct measures 3.0 mm. His liver functions have gone up as his total bilirubin at this point is 1.2 but his alkaline phosphatase is normal. Past Medical History Past Medical History (Chronic Problems): Chronic Problems Cannabis abuse (Chronic) Insomnia (Chronic) Depression (Chronic) Anxiety (Chronic) Noncompliance with medication regimen (Chronic) Allergies No Known Allergies Allergy (Verified 02/28/18 07:21) Home Medications: Ambulatory Orders Medication Instructions Recorded ALPRAZolam [Xanax] 1 mg PO BID 10/10/17 Quetiapine Fumarate [Seroquel] 100 mg PO QHS 10/10/17 Sertraline HCl [Zoloft] 150 mg PO QHS 10/10/17 traZODone [Desyrel] 50 mg PO QHS 10/10/17 proMETHazine suppository 25 mg RECTAL Q6H PRN PRN #6 suppos. 10/15/17 [Phenergan Suppository] Esomeprazole Mag Trihydrate 40 mg PO BID #60 cap 10/17/17 [Nexium] Ondansetron [Zofran Odt] 4 mg PO Q8H PRN PRN #10 tab 02/27/18 Surgical History: tonsillectomy Psychiatric History: Anxiety, Bipolar, Depression Smoking Status: Current every day smoker - *Family History Maternal History Items: Stroke Paternal History Items: COPD, Heart Disease Review of Systems Constitutional: Denies: Chills, Fever Cardiovascular: Denies: Chest Pain, Chest Pressure, Chest Tightness, Palpitations Respiratory: Denies: Cough, Hemoptysis, Shortness of breath at rest, Shortness of breath upon exertion, Wheezing Gastrointestinal: Reports: Abdominal Pain, Nausea, Vomiting Genitourinary: Denies: Dysuria, Frequency, Hematuria, Urgency Musculoskeletal: Denies: Joint Pain Skin: Denies: Lesions, Rash, Wounds Neurological: Denies: Change in Speech, Confusion, Numbness, Tingling, Seizures Psychiatric: Reports: Anxiety Endocrine: Denies: Heat/ Cold Intolerance, Polydipsia, Polyuria Hematologic/ Lymphatic: Denies: Adenopathy, Easy Bruising VTE Information - Inpt Only VTE Present on Admission: No VTE Mechan Device Prophylaxis: SCD's VTE Pharm Prophylaxis ordered?: No Reason prophylaxis not ordered:: Treatment Not Indicated Patient Problems: Active and Suspected Problems Acute cholecystitis (Acute) - Physical Exam General: Alert, Oriented x3 HEENT: Atraumatic, PERRLA, EOMI, Normocephalic Oral: Moist Mucosa Neck: Supple, No JVD Lungs: Clear to auscultation Cardiovascular: Regular rate, Regular Rhythm, No murmurs Abdomen: Soft, Guarding, Tender - Most of his tenderness is in the right upper quadrant but he is guarding throughout his abdomen. Extremities: No clubbing, No cyanosis, No edema Skin: No rashes, No breakdown Musculoskeletal: No Tenderness to Palpation of Joints or Extremities Lymphatic: No Cervical, Supraclavicular, or Inguinal Adenopathy Neurological: Cranial nerves II-XII grossly intact Psych/Mental Status: Anxious Vital Signs Temp Pulse Resp BP Pulse Ox 99.1 F 72 16 139/80 H 95 02/28/18 07:19 02/28/18 12:17 02/28/18 12:17 02/28/18 12:17 02/28/18 12:17 Oxygen Delivery Method Room Air Weight: 177 lb 11.081 oz Body Mass Index (BMI) 23.4 Laboratory Tests Past 24 Hrs 02/28/18 02/28/18 02/28/18 07:57 07:57 09:11 WBC 11.3 H RBC 5.10 Hgb 15.2 Hct 41.7 MCV 81.8 MCH 29.8 MCHC 36.5 H RDW 12.8 RDW Differential 38.1 Plt Count 290 MPV 9.9 Immature Gran % (Auto) 0.300 Neut % (Auto) 69.8 Lymph % (Auto) 16.8 L [place] % (Auto) 12.5 H Eos % (Auto) 0.3 Baso % (Auto) 0.3 Absolute Neuts (auto) 7.9 H Absolute Lymphs (auto) 1.90 Total Counted Not Reportable Sodium 133 L Potassium 3.0 L Chloride 100 Carbon Dioxide 19.0 L Anion Gap 14 BUN 24 H Creatinine 1.21 Estim Creat Clear Calc 100.88 Est GFR (MDRD) Af Amer 90 Est GFR (MDRD) Non-Af 75 BUN/Creatinine Ratio 19.8 Glucose 96 Calcium 9.2 Total Bilirubin 1.20 H AST 170 H ALT 89 H Alkaline Phosphatase 73 Total Protein 8.3 H Albumin 4.5 Globulin 3.8 Albumin/Globulin Ratio 1.2 Lipase 123 Urine Color Yellow Urine Clarity Sl. Cloudy Urine pH 7.0 Ur Specific [place] 1.005 Urine Protein Negative Urine Glucose (UA) Normal Urine Ketones 50 H Urine Occult Blood Negative Urine Nitrite Negative Urine Bilirubin Negative Urine Urobilinogen Normal Ur Leukocyte Esterase Negative Urine RBC 0 SEEN Urine WBC 0 SEEN Ur Squamous Epith Cells 0 SEEN Urine Bacteria 0 SEEN Urine Mucus 0 SEEN Assessment/Plan All Active Problems Acute cholecystitis (Acute) Intractable nausea and vomiting (Acute) This point I think the patient is having acute cholecystitis. He may have stones in his common bile duct although his common bile duct is only 3 mm at this time. I am going to admit him to the floor get him scheduled to have his gallbladder removed tomorrow. The surgery was described to him in great detail he does know that there is a possibility that this could be done open there is a possibility that he may need to have an ERCP. Risks to include bleeding infection possible need for further surgeries and injury to surrounding structures have all been discussed in great detail with the patient the patient agrees to proceed.
--- NOTE | 2018-02-28 12:50 | NURSING ---
MED SURG CHOLECYSTITIS RUSTAM
[2018-02-28] MEDS: Piperacil/Tazobactam 3.375 GM Q12 PREMIX IV (13:32)
--- NOTE | 2018-02-28 13:59 | EKG12_ITS ---
Test Reason : PRE OP Blood Pressure : / mmHG Vent. Rate : 055 BPM Atrial Rate : 055 BPM P-R Int : 122 ms QRS Dur : 086 ms QT Int : 480 ms P-R-T Axes : 066 072 070 degrees QTc Int : 459 ms Sinus bradycardia with sinus arrhythmia Otherwise normal ECG When compared with ECG of 24-OCT-2017 21:45, No significant change was found Confirmed by KETAN TURNER, ELVA ([id number]), multimedia editor DEMETRI SMITH ([id number]) on 03/02/2018 2:12:21 PM Referred By: RUSTAM Confirmed By:ELVA ACEVES MD
[2018-02-28] MEDS: Bupivacaine Mpf 0.5% 30 ML VIAL (15:30)
--- NOTE | 2018-02-28 16:03 | PCM.OPRPT ---
Problem List (1) Acute cholecystitis Status: Acute Report of Operation Date of Procedure: 02/28/18 Pre-Operative Diagnosis: Acute cholecystitis Post-Operative Diagnosis: Same Surgery/Procedure Performed:: Laparoscopic cholecystectomy Type of Anesthesia:: General Anesthesiologist: Morgan Yousif Specimen's removed: Gallbladder Estimated Blood Loss (mL): <25cc Fluids Replaced: 1 l lr Description of Procedure: Patient was brought into the operating room and placed in the supine position. Under excellent general endotracheal sedation the abdomen was sterilely prepped and draped in the usual fashion. Local was injected infraumbilically. Incision was made and dissection was carried down to the fascia. The fascia was grasped with a Chema. Varies needle was placed inside the abdomen. The abdomen was insufflated to 15 torr. A 10/12 trocar was placed without difficulty. Patient was placed in the head up position a subxiphoid #5 trochars placed inferior to this another #5 trocar was placed laterally a #5 trocar was placed all these under direct visualization without injury to underlying structures. Patient had an inconceivable amount of adhesions in the right upper quadrant I used electrocautery to take all these adhesions down just to find the gallbladder itself. I grab the fundus of the gallbladder and can continue to dissect off significant amount of adhesions from the gallbladder with both electrocautery and blunt dissection. I was able to dissect out the cystic duct was extremely short I opted not to do a cholangiogram secondary to this. Hemoclips were placed proximally and distally the duct was ligated. Cystic artery was identified hemoclips were placed proximally distally and it was ligated I deliver the gallbladder from the gallbladder bed with use of electrocautery had no spillage of bile or stones. Placed a specimen specimen bag delivered through the umbilical port without difficulty. I irrigated the right upper quadrant good hemostasis was noted I did place a Hemoclip on the posterior branch of the cystic artery to make sure that it did not start to bleed. I saw no bleeding from the liver bed remove the trochars under direct visualization good hemostasis was noted. I closed the fascia the umbilical port with a [id number] stitch of 0 Vicryl. Skin incisions were closed with septicum stitches of 4-0 Monocryl. Steri-Strips are applied sterile dressings were applied and the patient tolerated the procedure well - Admit VTE Documentation VTE Present on Admission: No VTE Mechan Device Prophylaxis: SCD's VTE Pharm Prophylaxis ordered?: No Reason prophylaxis not ordered:: Treatment Not Indicated
[2018-02-28] MEDS: Lactated Ringers 1,000 ML 150 ML IV ×2 (18:04→21:39)
[2018-02-28] MEDS: ALPRAZolam 0.5 MG Tablet 1 MG PO (18:22)
[2018-02-28] MEDS: Pantoprazole Sodium 40 MG Tablet PO (18:22)
[2018-02-28] MEDS: Sertraline 50 MG Tablet 150 MG PO (21:37)
[2018-02-28] MEDS: QUEtiapine 100 MG Tablet PO (21:37)
[2018-02-28] MEDS: Piperacil/Tazobactam 3.375 GM/50 ML ML IV (21:37)
[2018-02-28] MEDS: traZODone 50 MG Tablet PO (21:38)
[2018-03-01] MEDS: Lactated Ringers 1,000 ML 150 ML IV (04:13)
[2018-03-01 04:15] VITALS: BP 114/72; PULSE 77; RESP 16; TEMP 36.4; O2SAT 98
[2018-03-01] MEDS: Piperacil/Tazobactam 3.375 GM/50 ML ML IV (05:34)
[2018-03-01 05:58] LABS: Absolute Lymphocyte Count 1.68 X10^3/ul (0.83-4.51); Absolute Neutrophil Count 5.6 X10^3/uL (2.0-7.7); Basophil# 0.01 X10^3/uL; Basophil% 0.1 % (0-1); Eosinophil# 0.03 X10^3/uL; Eosinophils% 0.4 % (0-5); Hematocrit 34.6 % (40-54); Hemoglobin 12.2 g/dl (13.0-16.5); Lymphocyte # 1.68 X10^3/ul (4.0); Lymphocyte % 20.2 % (19-41); Mean Corp Hgb Conc 35.3 g/gl (32-36); Mean Corpuscular Hgb 30.5 pg (27.0-32.0); Mean Corpuscular Volume 86.5 fL (80-94); Mean Platelet Vol. 9.6 fl (6.2-12.0); Monocyte# 1.01 X10^3/uL; Monocyte% 12.2 % (0-10); Neutrophil # 5.56 X10^3/uL (2.7-7.7); Platelet Count 206 K/mm3 (150-450); RBC Distribution Width CV 12.8 % (11.6-14.6); RBC Distribution Width SD 39.6 fl (35.1-43.9); White Blood Count 8.3 K/mm3 (4.4-11.0)
[2018-03-01 05:59] LABS: POSITIVE COUNT NO; POSITIVE DIFFERENTIAL NO; POSITIVE MORPHOLOGY NO
[2018-03-01 06:04] LABS: ALB/GLOB Ratio 1.2 RATIO (0.9-2.4); AST(SGOT) 115 U/L (15-37); Alanine Aminotransfer ALT/SGPT 139 U/L (16-61); Albumin, Serum 3.2 g/dL (3.2-5.0); Alkaline Phosphatase 54 U/L (45-117); Anion Gap 9 (5-15); BUN 20 mg/dL (7-18); BUN/Creat Ratio 20.5 RATIO (10-20); Calcium,Total 8.3 mg/dL (8.5-10.1); Chloride 107 mmol/L (98-107); Creatinine, Serum 0.97 mg/dL (0.70-1.30); EST Glomerular Filtration Rate 96 mL/min (>60); Est Glom Filt Rate - Afr Amer 116 mL/min (>60); Estimated Creatinine Clearance 125.84 ml/min; Globulin 2.7 g/dL (2.2-4.2); Glucose 84 mg/dL (74-106); Potassium 3.9 mmol/L (3.5-5.1); Protein, Total 5.9 g/dL (6.4-8.2); Sodium Level 143 mmol/L (136-145)
--- NOTE | 2018-03-01 06:51 | DCINST_ITS ---
Discharge Diet: Light diet - advance as tolerated Discharge Activity: Return to Normal Activity, May Not Drive - for 2-3 days or while taking narcotic pain medicataions., - - Do not drive, work heavy equipment or sign legal documents for 24 hours. May shower in (days): 1 - with the bandage in place. Additional Activity Instructions:: Pain medication may cause nausea. You should typically eat light foods as you take your pain medications. Pain medication may also cause constipation. If this is a problem for you, please discuss with your doctor. Call your doctor if your incision/area has: Continuous Slow Oozing, Sudden Increased Bleeding, Increased Pain/ Swelling, Increased Redness, Foul Smelling Discharge, Fever of 101 or Higher Call your doctor if you observe: Fever of 101 or Higher Suture Line Care: Avoid Pulling/Pushing, Avoid Pinching/Bending Additional Dressing/Incision Instructions:: Leave operative bandaids on for 2 days. When you remove dressing, leave Steri-Strips on until your follow-up appointment, or until the Steri-Strips fall off on their own. Allergies/Adverse Reactions: Allergies No Known Allergies Allergy (Verified 02/28/18 07:21) Medications to take at Discharge ALPRAZolam [Xanax] 1 mg PO BID 10/10/17 Quetiapine Fumarate [Seroquel] 100 mg PO QHS 10/10/17 Sertraline HCl [Zoloft] 150 mg PO QHS 10/10/17 traZODone [Desyrel] 50 mg PO QHS 10/10/17 proMETHazine suppository [Phenergan Suppository] 25 mg RECTAL Q6H PRN PRN #6 suppos. 10/15/17 Esomeprazole Mag Trihydrate [Nexium] 40 mg PO BID #60 cap 10/17/17 Ondansetron [Zofran Odt] 4 mg PO Q8H PRN PRN #10 tab 02/27/18 Oxycodone HCl/Acetaminophen [Percocet 5/325] 1 - 2 tab PO Q4H PRN PRN 5 Days # 30 tab 02/28/18 The following prescriptions were given: Oxycodone HCl/Acetaminophen [Percocet 5/325] 1 - 2 tab PO Q4H PRN PRN 5 Days # 30 tab PRN Reason: Pain Primary Care Physician: Care Physician,No Primary [Primary Care Provider] - Test Results: Test results from this visit will be discussed in further detail at your follow- up appointment, if applicable. Please Follow Up With: Kirsten Zimmerman PA-C - [phone] When: 10 days Proposed Discharge Date: 03/01/18
[2018-03-01] MEDS: Ondansetron 4 MG/2 ML Vial IV (07:19)
[2018-03-01] MEDS: HYDROmorphone 1 MG/ML Syringe IV (07:23)
[2018-03-01 07:25] VITALS: BP 158/97; PULSE 55; RESP 16; TEMP 36.4; O2SAT 100
[2018-03-01] MEDS: ALPRAZolam 0.5 MG Tablet 1 MG PO (07:31)
[2018-03-01] MEDS: Pantoprazole Sodium 40 MG Tablet PO (07:31)
--- NOTE | 2018-03-01 08:01 | PN.SURG_ITS ---
Patient Problems: Active and Suspected Problems Acute cholecystitis (Acute) Subjective: Patient evaluated resting comfortably in bed. He is very anxious this morning. He notes generalized abdominal discomfort. He also notes left shoulder blade pain and nausea. - Physical Exam General: Alert, Oriented x3, Cooperative, - - Anxious Abdomen: Bowel Sounds Present, Soft, Non Tender, Passing Flatus, - - Incisions c /d/i. No erythema o rinfection noted. Vital Signs Temp Pulse Resp BP Pulse Ox 97.6 F L 77 16 114/72 98 03/01/18 04:15 03/01/18 04:15 03/01/18 04:15 03/01/18 04:15 03/01/18 04:15 Oxygen Delivery Method Room Air Weight: 177 lb Body Mass Index (BMI) 23.3 Intake and Output for Last 24 Hours 02/27/18 02/28/18 03/01/18 23:59 23:59 23:59 Intake Total 1300 / 1300 2120 / 2120 Output Total 1100 / 1100 Balance 1300 / 1300 1020 / 1020 Laboratory Tests Past 24 Hrs 03/01/18 03/01/18 05:15 05:15 WBC 8.3 RBC 4.00 L Hgb 12.2 L Hct 34.6 L MCV 86.5 MCH 30.5 MCHC 35.3 RDW 12.8 RDW Differential 39.6 Plt Count 206 MPV 9.6 Immature Gran % (Auto) 0.100 Neut % (Auto) 67.0 Lymph % (Auto) 20.2 [place] % (Auto) 12.2 H Eos % (Auto) 0.4 Baso % (Auto) 0.1 Absolute Neuts (auto) 5.6 Absolute Lymphs (auto) 1.68 Total Counted Not Reportable Sodium 143 Potassium 3.9 Chloride 107 Carbon Dioxide 27.0 Anion Gap 9 BUN 20 H Creatinine 0.97 Estim Creat Clear Calc 125.84 Est GFR (MDRD) Af Amer 116 Est GFR (MDRD) Non-Af 96 BUN/Creatinine Ratio 20.5 H Glucose 84 Calcium 8.3 L Total Bilirubin 0.80 AST 115 H ALT 139 H Alkaline Phosphatase 54 Total Protein 5.9 L Albumin 3.2 Globulin 2.7 Albumin/Globulin Ratio 1.2 Medical Necessity - Tobacco Use Smoking Status: Current every day smoker Assessment/Plan All Active Problems Acute cholecystitis (Acute) Intractable nausea and vomiting (Acute) I am following this patient in conjunction with Dr. Latham S/p Laparoscopic cholecystectomy Order Xanax for this morning Ready for discharge later today
--- NOTE | 2018-03-01 11:30 | NURSING ---
pt has been repeatedly encouraged to have PO intake other than ice chips and water. also have explained importance of ambulating to pt. he is very hesitant to eat anything for fear of becoming nauseated and is worried that walking will increase his abd pain. Dr Latham spoke with pt and also encouraged ambulation in the hallway. pt agreed and then requested a walker. this RN reassured the pt that he is stable and is safe to walk in halls without a walker. pt's mom ordered him a lunch tray with clear and full liquids and pt is encouraged to attempt PO intake.
[2018-03-01 14:34] VITALS: BP 145/86; PULSE 60; RESP 16; TEMP 36.6; O2SAT 100
--- NOTE | 2018-03-01 16:28 | CASEMGMT ---
Social Work Note DONNY familiar with pt as this worker met with pt last time pt was admitted into [facility]. Pt is still listed as self-pay and has a history of marijuana use. DONNY met with pt. Pt confirms that he still lives with his dad and the plan is for him to return to his dad's at discharge. 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 Pt reports that he still doesn't have insurance and he isn't sure if he followed up with [facility]. Pt states that he filled out HCAP application yesterday and was receptive to receiving Medicaid Application. SW provided pt with Medicaid Application. Pt confirms that he still see's a psychiatrist. Pt denied additional needs or concerns at this time. Plan: Pt to discharge home Mara Farooq REALTY LOAN SPECIALIST, PEARL TECHNICIAN
== END 2018-03-01 15:35 | disposition home or self-care (01) ==
LOC: ED 09:00 → MS2 12:57 → ED 13:46 → AC 13:46 → ED 18:18 → MS2 18:18
PROVIDERS: Admitting Provider Surgery; Emergency Provider Emergency Medicine; Visit Provider Surgery
PROC: (CPT 47610; principal; 2018-02-28 08:40)
DX: K81.1 Chronic cholecystitis (principal); F12.10 Cannabis abuse, uncomplicated; Z91.14 Patient's other noncompliance with medication regimen; F31.9 Bipolar disorder, unspecified; F41.9 Anxiety disorder, unspecified; Z79.899 Other long term (current) drug therapy
CPT/HCPCS: 00790; 47562; 36415; 74177; 76705; 80053; 81001; 83690; 85025; 88304; 93005; 96361; 96365; 96366; 96375; 96376; 99218; 99284; J7050; J7120; Q9967; A4216; G0378; J1610; J2405

== ENCOUNTER 2018-03-04 09:40 | Observation (INO) | payer SELFPAY ==
[2018-03-04 09:40] VITALS: BP 140/99; PULSE 69; RESP 18; TEMP 36.5; BMI 23.9
--- NOTE | 2018-03-04 09:54 | ED.VISSUMM ---
- ER Visit Summary Date of Service: 03/04/18 Chief Complaint: Nausea, vomiting, abdominal pain History of Present Illness: The patient is a 32 M with history of cyclic vomiting syndrome who is 3 days status post laparoscopic cholecystectomy presents to the emergency department with increasing abdominal pain, nausea, and vomiting. Patient had cholecystectomy by Dr. Latham on Wednesday. He states he was discharged from the hospital on Wednesday. He states on Wednesday, his symptoms have improved. However last night, he began to have worsening pain. He states that he ate some saltine crackers child a bottle of water. He states the pain worsened and he began to vomit. He states he has been unable to keep anything down. He did try his morning medications but did vomit them up. He denies any fevers but does admit to some chills. He denies any back pain. He denies any dysuria. Physical Examination: Vital signs reviewed General: Well-nourished, well-developed Head: Normocephalic, atraumatic Eyes: Pupils equal and reactive, extraocular muscles intact Neck, supple, no lymphadenopathy Heart: Regular rate and rhythm Respiratory: No distress, clear bilaterally Abdomen: Soft, mildly tender diffusely to palpation without rebound or guarding, incisions are clean dry and intact, nondistended, no peritoneal signs Back: Nontender Extremities: Nontender, no edema, no cords Skin: Normal color no rash Neuro: Alert and oriented, no focal or lateralizing deficits Test Results: [] Emergency Department Course and Treatment: Patient presents to the emergency department with increasing abdominal pain status post laparoscopic cholecystectomy. He was given analgesics and antiemetics. I discussed the patient Dr. Latham who actually evaluated him in the emergency department. He did request a CT with IV contrast to rule out postoperative abscess. This was unremarkable. His labs have improved. The patient underwent HIDA scan which showed no evidence of bile leak. He will be admitted to Dr. Latham service for postoperative pain control. Treatment Plan: [] Disposition: Admission Impression: Postoperative abdominal pain This note was generated with [employer] dictation software. It may contain incorrect words, spelling, and punctuation that were not noted in review of the chart prior to signing ED Disposition - Plan for ED Patient: Chief Complaint: Nausea/Vomiting
--- NOTE | 2018-03-04 10:05 | CT_ITS ---
STUDY: CT ABDOMEN AND PELVIS WITH CONTRAST REASON FOR EXAM: Male, 32 years old. Status post cholecystectomy 4 days ago. Vomiting and fever. RADIATION DOSAGE (If Supplied By Facility): CTDIvol = ( 13.09 ) mGy, DLP = ( 810.34 ) mGycm TECHNIQUE: Transaxial images were obtained from the dome of the diaphragm to the symphysis pubis without oral contrast. 100mL ml of Isovue 300 contrast was administered. Sagittal and coronal images were reconstructed. Individualized dose optimization techniques were used for this CT. COMPARISON: Comparison is made with prior examination dated February 28, 2018. FINDINGS: The visualized lung bases are unremarkable. The visualized portions of the heart are within normal limits. Normal liver. The patient is status post cholecystectomy. There is a 3.1 cm x 2.4 cm fluid collection in the gallbladder fossa. This most likely is secondary to postsurgical changes. Mild increased markings in the peritoneal fat along the medial aspect of the left lobe of the liver most likely postsurgical in nature. Normal spleen. Normal pancreas. Normal bilateral adrenal glands. Normal right kidney. Normal left kidney. Normal visualized stomach. Normal small intestine. Normal colon. There is a calcified appendicolith is seen within a normal appearing appendix.. Normal abdominal aorta. Normal inferior vena cava. Normal retroperitoneum. Normal urinary bladder. There is a left-sided inguinal hernia containing adipose tissue. Normal osseous structures. CT/Abdomen/Pelvis W IV Cont ONLY IMPRESSION: Status post cholecystectomy. Small amount of fluid in the gallbladder fossa most likely secondary to the recent cholecystectomy. Electronically Signed: Arsh Ross MD at 15:04 EDT Tel [phone], Service support ,
[2018-03-04 10:15] LABS: Absolute Lymphocyte Count 1.27 X10^3/ul (0.83-4.51); Absolute Neutrophil Count 10.4 X10^3/uL (2.0-7.7); Basophil# 0.06 X10^3/uL; Basophil% 0.5 % (0-1); Eosinophils% 0.8 % (0-5); Lymphocyte # 1.27 X10^3/ul (4.0); Mean Corp Hgb Conc 35.1 g/gl (32-36); Mean Corpuscular Hgb 29.7 pg (27.0-32.0); Mean Corpuscular Volume 84.7 fL (80-94); Mean Platelet Vol. 9.5 fl (6.2-12.0); Monocyte# 0.84 X10^3/uL; Monocyte% 6.6 % (0-10); Neutrophil # 10.35 X10^3/uL (2.7-7.7); Neutrophil % 81.8 % (47-70); POSITIVE COUNT NO; POSITIVE DIFFERENTIAL NO; POSITIVE MORPHOLOGY NO; Platelet Count 298 K/mm3 (150-450); RBC Distribution Width CV 12.8 % (11.6-14.6); RBC Distribution Width SD 39.2 fl (35.1-43.9); Red Blood Count 4.37 M/mm3 (4.6-6.2); White Blood Count 12.7 K/mm3 (4.4-11.0)
[2018-03-04] MEDS: DiphenhydrAMINE 50 MG/ML Syringe 25 MG IV (10:22)
[2018-03-04] MEDS: proMETHazine 25 MG/ML Syringe 12.5 MG IV (10:22)
[2018-03-04] MEDS: Morphine 4 MG/ML Syringe IV ×2 (10:22→15:56)
[2018-03-04] MEDS: 0.9% Normal Saline 1,000 ML 1000 ML IV (10:25)
[2018-03-04 10:33] VITALS: BP 158/89; PULSE 60; RESP 16; O2SAT 100
[2018-03-04 10:45] LABS: ALB/GLOB Ratio 1.1 RATIO (0.9-2.4); AST(SGOT) 16 U/L (15-37); Alanine Aminotransfer ALT/SGPT 70 U/L (16-61); Albumin, Serum 3.8 g/dL (3.2-5.0); Alkaline Phosphatase 67 U/L (45-117); Anion Gap 13 (5-15); BUN 11 mg/dL (7-18); BUN/Creat Ratio 11.1 RATIO (10-20); Calcium,Total 9.2 mg/dL (8.5-10.1); Chloride 110 mmol/L (98-107); Creatinine, Serum 0.99 mg/dL (0.70-1.30); EST Glomerular Filtration Rate 94 mL/min (>60); Est Glom Filt Rate - Afr Amer 114 mL/min (>60); Globulin 3.4 g/dL (2.2-4.2); Glucose 110 mg/dL (74-106); Lipase 150 U/L (73-393); Potassium 3.4 mmol/L (3.5-5.1); Protein, Total 7.2 g/dL (6.4-8.2); Sodium Level 143 mmol/L (136-145)
[2018-03-04] MEDS: Ondansetron 4 MG/2 ML Vial IV ×2 (11:33→15:55)
[2018-03-04] MEDS: HYDROmorphone 1 MG/ML Syringe IV ×3 (11:33→21:19)
[2018-03-04 12:08] VITALS: BP 141/87; PULSE 58; RESP 14; O2SAT 98
--- NOTE | 2018-03-04 12:25 | NM_ITS ---
CLINICAL: 32-year-old female with history of recent cholecystectomy with postoperative pain and suspected bile leak. RADIONUCLIDE HEPATOBILIARY SCINTIGRAPHY COMPARISON: CT of the abdomen-pelvis report 03/04/2018 FINDINGS: Following the intravenous administration of 4.8 mCi of 99m Tc Mebrofenin, hepatobiliary images reveal: 1. Relatively prompt and homogeneous radiopharmaceutical concentration is noted by a normal sized liver. No parenchymal defects are identified. 2. Gallbladder activity is not identified during 60 minutes of sequential imaging commensurate with known history of prior cholecystectomy. 3. Small intestinal tract is observed at 35 minutes post radiopharmaceutical administration. 4. Washout of the radiopharmaceutical by the hepatic parenchyma appears qualitatively normal. 5. There is no evidence of a visualized bile leak identified during 60 minutes of sequential imaging. NM/Hepatobilliary Imaging IMPRESSION: 1. Nonvisualization of the gallbladder is consistent with prior cholecystectomy. 2. There is no scintigraphic evidence of bile leak on the current examination. Electronically Signed: Reynold Parker DO at 15:44 EDT Tel , Service support ,
--- NOTE | 2018-03-04 12:52 | HP.PCM_ITS ---
Problem List (1) Intractable nausea and vomiting Status: Acute Qualifiers: Vomiting type: cyclical vomiting Qualified Code(s): G43.A1 - Cyclical vomiting, intractable (2) RUQ abdominal pain Status: Acute History of Present Illness Date of Admission: 03/04/18 The patient is a 32 year old M whom I performed a laparoscopic cholecystectomy on Wednesday. This was done for acute cholecystitis. Gallbladder was extremely adherent to the surrounding omentum and duodenum and I did leave a drain in place which I subsequently removed the next day when I discharged him home. He subsequent he had about 24 hours of improvement then unexpectedly started to develop right upper quadrant abdominal pain and the cyclic vomiting that he is experienced numerous times in the past. He presented to the emergency department where he was noted to have an elevation in his white count with a left shift his liver function tests which have pretty much all resolved. A CAT scan of the abdomen and pelvis was obtained which showed small amount of fluid in the gallbladder fossa nothing that needed to be drained or could be drained easily. And at the present time of this dictation he is actively obtaining a HIDA scan to see if we are dealing with a biliary leak. I am going to admit him to the hospital for IV hydration and antiemetics and IV antibiotics for a possible postoperative infection. Past Medical History Past Medical History (Chronic Problems): Chronic Problems Cannabis abuse (Chronic) Insomnia (Chronic) Depression (Chronic) Anxiety (Chronic) Noncompliance with medication regimen (Chronic) Allergies No Known Allergies Allergy (Verified 03/04/18 10:35) Home Medications: Ambulatory Orders Medication Instructions Recorded ALPRAZolam [Xanax] 1 mg PO BID 10/10/17 Quetiapine Fumarate [Seroquel] 100 mg PO QHS 10/10/17 Sertraline HCl [Zoloft] 150 mg PO QHS 10/10/17 traZODone [Desyrel] 50 mg PO QHS 10/10/17 Esomeprazole Mag Trihydrate 40 mg PO BID #60 cap 10/17/17 [Nexium] Surgical History: cholecystectomy, tonsillectomy Psychiatric History: Anxiety, Bipolar, Depression Smoking Status: Current every day smoker - *Family History Maternal History Items: Stroke Paternal History Items: COPD, Heart Disease Review of Systems Constitutional: Reports: Anorexia. Denies: Chills, Fever Cardiovascular: Denies: Chest Pain, Chest Pressure, Chest Tightness, Palpitations Respiratory: Denies: Cough, Hemoptysis, Shortness of breath at rest, Shortness of breath upon exertion, Wheezing Gastrointestinal: Reports: Abdominal Pain, Nausea, Vomiting Genitourinary: Denies: Dysuria, Frequency, Hematuria, Urgency Musculoskeletal: Denies: Joint Pain Psychiatric: Reports: Anxiety, Depression VTE Information - Inpt Only VTE Present on Admission: No VTE Mechan Device Prophylaxis: SCD's VTE Pharm Prophylaxis ordered?: No Reason prophylaxis not ordered:: Treatment Not Indicated Patient Problems: Active and Suspected Problems RUQ abdominal pain (Acute) - Physical Exam General: Alert, Oriented x3 Neck: Supple, No JVD Lungs: Clear to auscultation Cardiovascular: Regular rate, Regular Rhythm, No murmurs Abdomen: Tender - Patient has some diffuse tenderness worse in the right upper quadrant but also in the lower abdomen as well. He does have some voluntary guarding. Extremities: No clubbing, No cyanosis, No edema Vital Signs Temp Pulse Resp BP Pulse Ox 97.7 F L 58 L 14 141/87 H 98 03/04/18 09:40 03/04/18 12:08 03/04/18 12:08 03/04/18 12:08 03/04/18 12:08 Oxygen Delivery Method Room Air Weight: 181 lb 10.574 oz Body Mass Index (BMI) 23.9 Laboratory Tests Past 24 Hrs 03/04/18 03/04/18 10:00 10:00 WBC 12.7 H RBC 4.37 L Hgb 13.0 Hct 37.0 L MCV 84.7 MCH 29.7 MCHC 35.1 RDW 12.8 RDW Differential 39.2 Plt Count 298 MPV 9.5 Immature Gran % (Auto) 0.300 Neut % (Auto) 81.8 H Lymph % (Auto) 10.0 L [place] % (Auto) 6.6 Eos % (Auto) 0.8 Baso % (Auto) 0.5 Absolute Neuts (auto) 10.4 H Absolute Lymphs (auto) 1.27 Total Counted Not Reportable Sodium 143 Potassium 3.4 L Chloride 110 H Carbon Dioxide 20.0 L Anion Gap 13 BUN 11 Creatinine 0.99 Estim Creat Clear Calc 123.30 Est GFR (MDRD) Af Amer 114 Est GFR (MDRD) Non-Af 94 BUN/Creatinine Ratio 11.1 Glucose 110 H Calcium 9.2 Total Bilirubin 0.60 AST 16 ALT 70 H Alkaline Phosphatase 67 Total Protein 7.2 Albumin 3.8 Globulin 3.4 Albumin/Globulin Ratio 1.1 Lipase 150 Assessment/Plan All Active Problems Acute cholecystitis (Acute) RUQ abdominal pain (Acute) Intractable nausea and vomiting (Acute) We will await the HIDA scan results. If these are positive then he will need to undergo an ERCP. If they are negative we are still going to admit him to the hospital with IV hydration and antiemetics as well as some antibiotics. At this point I do not think that he has an abscess but certainly one could be brewing nothing that could be drained easily.
--- NOTE | 2018-03-04 13:01 | NURSING ---
MED SURG OBS N,V RUSTAM
[2018-03-04] MEDS: LORazepam 2 MG/ML Syringe 1 MG IV (14:26)
[2018-03-04 14:29] VITALS: BP 144/94; PULSE 63; RESP 16; O2SAT 100
[2018-03-04 15:22] VITALS: BMI 24.0
[2018-03-04 15:25] VITALS: BMI 23.9
--- NOTE | 2018-03-04 15:59 | NURSING ---
319 POST OP ABD PAIN RUSTAM
[2018-03-04] MEDS: Lactated Ringers 1,000 ML 100 ML IV (16:44)
[2018-03-04] MEDS: Piperacil/Tazobactam 3.375 GM/50 ML ML IV ×2 (16:44→23:30)
[2018-03-04] MEDS: proCHLORPERazine 10 MG/2 ML Vial IV (17:21)
[2018-03-04 17:33] VITALS: BP 126/68; PULSE 75; RESP 18; TEMP 37.5; O2SAT 100
[2018-03-04 20:06] VITALS: BP 138/71; PULSE 58; RESP 16; TEMP 36.9; O2SAT 100
[2018-03-04] MEDS: Sertraline 50 MG Tablet 150 MG PO (21:19)
[2018-03-04] MEDS: traZODone 50 MG Tablet PO (21:19)
[2018-03-04] MEDS: Pantoprazole Sodium 40 MG Tablet PO (21:19)
[2018-03-04] MEDS: QUEtiapine 100 MG Tablet PO (21:19)
[2018-03-04] MEDS: ALPRAZolam 0.5 MG Tablet 1 MG PO (21:19)
[2018-03-04 21:41] LABS: Color, Urine Yellow (Yellow); Glucose, Dipstick Normal (Normal); Ketone-Dipstick Negative (Negative); Leukocyte Esterase-Dipstick Negative /ul (Negative); Nitrite-Dipstick Negative (Negative); Occult Blood-Urine Negative /ul (Negative); Protein-Dipstick Negative (Negative); Urine Bilirubin Dipstick Negative (Negative); Urine Clarity Clear (Clear); Urine Urobilinogen Normal (Normal)
--- NOTE | 2018-03-04 23:32 | NURSING ---
Mau hung at this time d/t last administration at 1640 per pharmacy.
[2018-03-05 02:05] VITALS: BP 98/48; PULSE 59; RESP 14; TEMP 36.7; O2SAT 98
[2018-03-05] MEDS: Lactated Ringers 1,000 ML 100 ML IV (02:05)
[2018-03-05] MEDS: Piperacil/Tazobactam 3.375 GM/50 ML ML IV (05:15)
[2018-03-05 07:45] LABS: Absolute Lymphocyte Count 2.17 X10^3/ul (0.83-4.51); Absolute Neutrophil Count 3.7 X10^3/uL (2.0-7.7); Basophil# 0.03 X10^3/uL; Basophil% 0.4 % (0-1); Eosinophil# 0.16 X10^3/uL; Eosinophils% 2.3 % (0-5); Hematocrit 34.8 % (40-54); Lymphocyte # 2.17 X10^3/ul (4.0); Lymphocyte % 31.6 % (19-41); Mean Corp Hgb Conc 34.5 g/gl (32-36); Mean Corpuscular Hgb 30.2 pg (27.0-32.0); Mean Corpuscular Volume 87.7 fL (80-94); Mean Platelet Vol. 9.5 fl (6.2-12.0); Monocyte# 0.81 X10^3/uL; Monocyte% 11.8 % (0-10); Neutrophil # 3.68 X10^3/uL (2.7-7.7); Neutrophil % 53.8 % (47-70); Platelet Count 271 K/mm3 (150-450); RBC Distribution Width CV 13.2 % (11.6-14.6); RBC Distribution Width SD 42.7 fl (35.1-43.9); Red Blood Count 3.97 M/mm3 (4.6-6.2); White Blood Count 6.9 K/mm3 (4.4-11.0)
--- NOTE | 2018-03-05 07:45 | PCM.PN.SRG ---
Patient Problems: Active and Suspected Problems RUQ abdominal pain (Acute) Subjective: Patient states that he feels 100% better. No nausea no vomiting. No abdominal pain. Objective: Abdomen is soft flat nondistended no rebound guarding or peritoneal signs identified - Physical Exam Vital Signs Temp Pulse Resp BP Pulse Ox 98.0 F 59 L 14 98/48 L 98 03/05/18 02:05 03/05/18 02:05 03/05/18 02:05 03/05/18 02:05 03/05/18 02:05 Oxygen Delivery Method Room Air Weight: 181 lb 7.047 oz Body Mass Index (BMI) 23.9 Intake and Output for Last 24 Hours 03/03/18 03/04/18 03/05/18 23:59 23:59 23:59 Intake Total 94 / 94 Balance 94 / 94 Laboratory Tests Past 24 Hrs 03/04/18 03/05/18 21:20 07:05 WBC Pending RBC Pending Hgb Pending Hct Pending MCV Pending MCH Pending MCHC Pending RDW Pending RDW Differential Pending Plt Count Pending Neut % (Auto) Pending Absolute Neuts (auto) Pending Total Counted Pending Urine Color Yellow Urine Clarity Clear Urine pH 8.0 Ur Specific [place] 1.010 Urine Protein Negative Urine Glucose (UA) Normal Urine Ketones Negative Urine Occult Blood Negative Urine Nitrite Negative Urine Bilirubin Negative Urine Urobilinogen Normal Ur Leukocyte Esterase Negative Medical Necessity - Tobacco Use Smoking Status: Current every day smoker Tobacco Use: Cigarettes Assessment/Plan All Active Problems Acute cholecystitis (Acute) RUQ abdominal pain (Acute) Intractable nausea and vomiting (Acute) We will advance his diet to full liquids probably discharge him later today.
[2018-03-05 07:58] LABS: POSITIVE COUNT NO; POSITIVE DIFFERENTIAL NO; POSITIVE MORPHOLOGY NO
[2018-03-05 07:59] VITALS: BP 123/72; PULSE 70; RESP 16; TEMP 36.7; O2SAT 100
--- NOTE | 2018-03-05 08:43 | DCINST_ITS ---
Discharge Diet: Light diet - advance as tolerated Discharge Activity: May Not Drive - for 2-3 days or while taking narcotic pain medications., - - Do not drive, work heavy equipment or sign legal documents for 24 hours. May shower in (days): 1 - with the bandage in place. Additional Activity Instructions:: Pain medication may cause nausea. You should typically eat light foods as you take your pain medications. Pain medication may also cause constipation. If this is a problem for you, please discuss with your doctor. Call your doctor if your incision/area has: Continuous Slow Oozing, Sudden Increased Bleeding, Increased Pain/ Swelling, Increased Redness, Foul Smelling Discharge Call your doctor if you observe: Fever of 101 or Higher Suture Line Care: Avoid Pulling/Pushing, Avoid Pinching/Bending Additional Dressing/Incision Instructions:: Leave operative bandaids on for 2 days. When you remove dressing, leave Steri-Strips on until your follow-up appointment, or until the Steri-Strips fall off on their own. Allergies/Adverse Reactions: Allergies No Known Allergies Allergy (Verified 03/04/18 10:35) Medications to take at Discharge ALPRAZolam [Xanax] 1 mg PO BID 10/10/17 Quetiapine Fumarate [Seroquel] 100 mg PO QHS 10/10/17 Sertraline HCl [Zoloft] 150 mg PO QHS 10/10/17 traZODone [Desyrel] 50 mg PO QHS 10/10/17 Esomeprazole Mag Trihydrate [Nexium] 40 mg PO BID #60 cap 10/17/17 Primary Care Physician: Care Physician,No Primary [Primary Care Provider] - Test Results: Test results from this visit will be discussed in further detail at your follow- up appointment, if applicable. Please Follow Up With: Morgan Latham MD - Please call [phone] to schedule an appointment. When: 7 days after your surgery.
[2018-03-05] MEDS: ALPRAZolam 0.5 MG Tablet 1 MG PO (09:25)
[2018-03-05] MEDS: Pantoprazole Sodium 40 MG Tablet PO (09:25)
--- NOTE | 2018-03-05 12:58 | CASEMGMT ---
SOCIAL WORK: Patient listed as self pay status. Attempted to see patient however he had already been discharged. NERY Cox
== END 2018-03-05 09:57 | disposition home or self-care (01) ==
LOC: ED 11:13 → MS3 13:52
PROVIDERS: Admitting Provider Surgery; Emergency Provider Emergency Medicine; Visit Provider Surgery
DX: G43.A1 Cyclical vomiting, in migraine, intractable (principal); Z91.14 Patient's other noncompliance with medication regimen; F41.9 Anxiety disorder, unspecified; F31.9 Bipolar disorder, unspecified; Z79.899 Other long term (current) drug therapy; R10.11 Right upper quadrant pain; F17.210 Nicotine dependence, cigarettes, uncomplicated; K21.9 Gastro-esophageal reflux disease without esophagitis
CPT/HCPCS: 36415; 74177; 78226; 80053; 81002; 83690; 85025; 87086; 96361; 96365; 96366; 96375; 96376; 99218; 99284; 99406; A9537; J7030; J7120; Q9967; A4216; G0378; J2405

== ENCOUNTER 2018-07-22 20:42 | Inpatient (IN) | payer SELFPAY ==
[2018-07-22 20:43] VITALS: BP 149/98; PULSE 114; RESP 18; TEMP 36.4; O2SAT 97; BMI 25.4
[2018-07-22 20:53] VITALS: BP 142/106; PULSE 69; RESP 16; O2SAT 98
--- NOTE | 2018-07-22 21:05 | ED.VISSUMM ---
- ER Visit Summary Date of Service: 07/22/18 Chief Complaint: Vomiting diarrhea History of Present Illness: The patient is a 33 M sudden vomiting diarrhea less than 3 hours prior to arrival. Ate [employer] 3 hours prior to that. No other shared the mail. States has sweats. Abdominal pain mid abdomen shortly afterwards. No fevers. 10 bouts of vomiting no hematemesis 3 bouts of diarrhea. He is on anxiety medicines including Xanax however denies any missed doses. Also admits to smoking marijuana occasionally last use was this morning, denies any vomiting with his marijuana in the past. Cholecystectomy 3 months ago from a gallbladder flare by Dr. Latham. No allergies. Physical Examination: General: Alert and oriented ?3, no acute distress. Sweaty, nontoxic HEENT: Normocephalic, atraumatic. Moist mucosa membranes Neck: supple, nontender. Cardiovascular: Regular rate and rhythm, no murmurs Respiratory: Normal breath sounds, symmetric, no distress Abdomen: Soft, mild mid abdominal tenderness without guarding or rebound. Nondistended. Normal bowel sounds. Extremities: Nontender, no edema, pulses intact ?4 Neuro: no focal neurological deficits. Test Results: WBC 17 creatinine 1.27 lipase 86 liver enzymes normal. Blood culture x2 pending. Lactic acid 2.7. CT abdomen pelvis IV contrast no acute process. Emergency Department Course and Treatment: Patient diaphoretic tachycardic on arrival. Slightly pale. Fluids were started. Nonsurgical abdomen. Check abdominal labs after Zofran given white count of 17 liver and lipase were all normal. Reevaluation he still slightly improved however still feels ill. Anxiety history he states he did not run out of his Xanax for concerns of withdrawal symptoms he admits to smoking marijuana and has not had vomiting and diarrhea with this in the past. Treated additionally with more Zofran and eventually Phenergan for her symptoms due to vomiting. He had not had any diarrhea during evaluation. Due to white count surgery 3 months ago IV contrast scan of obtained for further evaluation shows no acute process. Repeat lactic acid was sent. Does meet severe sepsis criteria with his vomiting and diarrhea. Patient continued to have symptoms I discussed with hospitalist Dr. Messer for admission. Stool cultures were ordered for further evaluation with his fast food meal prior to symptoms occurring. Prior hospitalist, will hold antibiotics at this time with more likely concerns for viral gastroenteritis. Blood pressure is stable. He is stable for the medical floor. Heart rate did improve. Treatment Plan: [] Disposition: Admission Impression: 1. Severe sepsis 2. Intractable vomiting 3. Diarrhea This note was generated with [employer] dictation software. It may contain incorrect words, spelling, and punctuation that were not noted in review of the chart prior to signing ED Disposition - Plan for ED Patient: Disposition: Acute [facility] Diagnosis: Severe sepsis, Intractable nausea and vomiting, Diarrhea Referrals: Care Physician,No Primary [Primary Care Provider] -
[2018-07-22] MEDS: Ondansetron 4 MG/2 ML Vial IV ×2 (21:12→22:28)
[2018-07-22] MEDS: 0.9% Normal Saline 1,000 ML 1000 ML IV ×2 (21:12→22:20)
[2018-07-22 21:16] LABS: Absolute Lymphocyte Count 2.68 X10^3/ul (0.83-4.51); Absolute Neutrophil Count 13.4 X10^3/uL (2.0-7.7); Basophil# 0.09 X10^3/uL; Basophil% 0.5 % (0-1); Eosinophil# 0.36 X10^3/uL; Hematocrit 47.2 % (40-54); Hemoglobin 16.3 g/dl (13.0-16.5); Lymphocyte # 2.68 X10^3/ul (4.0); Mean Corp Hgb Conc 34.5 g/gl (32-36); Mean Corpuscular Hgb 30.6 pg (27.0-32.0); Mean Corpuscular Volume 88.7 fL (80-94); Mean Platelet Vol. 9.6 fl (6.2-12.0); Monocyte# 1.26 X10^3/uL; Neutrophil # 13.43 X10^3/uL (2.7-7.7); Neutrophil % 75.2 % (47-70); POSITIVE COUNT NO; POSITIVE DIFFERENTIAL NO; POSITIVE MORPHOLOGY NO; Platelet Count 292 K/mm3 (150-450); RBC Distribution Width CV 13.4 % (11.6-14.6); RBC Distribution Width SD 43.4 fl (35.1-43.9); Red Blood Count 5.32 M/mm3 (4.6-6.2); White Blood Count 17.9 K/mm3 (4.4-11.0)
[2018-07-22 21:27] LABS: AST(SGOT) 14 U/L (15-37); Alanine Aminotransfer ALT/SGPT 25 U/L (16-61); Albumin, Serum 4.8 g/dL (3.2-5.0); Alkaline Phosphatase 98 U/L (45-117); Anion Gap 13 (5-15); BUN 10 mg/dL (7-18); BUN/Creat Ratio 7.9 RATIO (10-20); Bilirubin, Direct 0.12 mg/dL (0.00-0.30); Calcium,Total 9.9 mg/dL (8.5-10.1); Chloride 103 mmol/L (98-107); Creatinine, Serum 1.27 mg/dL (0.70-1.30); EST Glomerular Filtration Rate 70 mL/min (>60); Est Glom Filt Rate - Afr Amer 85 mL/min (>60); Estimated Creatinine Clearance 95.24 ml/min; Globulin 3.8 g/dL (2.2-4.2); Glucose 128 mg/dL (74-106); Lipase 86 U/L (73-393); Potassium 3.4 mmol/L (3.5-5.1); Protein, Total 8.6 g/dL (6.4-8.2); Sodium Level 142 mmol/L (136-145)
[2018-07-22 21:48] VITALS: BP 146/94; PULSE 95; RESP 21; TEMP 36.5; O2SAT 99
--- NOTE | 2018-07-22 21:52 | CT_ITS ---
STUDY: CT ABDOMEN AND PELVIS WITH CONTRAST REASON FOR EXAM: Male, 33 years old. Nausea, vomiting, chills since 1830. Elevated WBC, history of gallbladder removal. RADIATION DOSAGE (If Supplied By Facility): CTDIvol = ( 12.67 ) mGy, DLP = ( 797.89 ) mGycm TECHNIQUE: Transaxial 3.75 mm images were obtained from the dome of the diaphragm to the symphysis pubis without oral contrast. 100 ml of Isovue 300 contrast was administered. Sagittal and coronal images were reconstructed. Individualized dose optimization techniques were used for this CT. COMPARISON: CT abdomen pelvis March 04 and 2017. 10/13/2017. FINDINGS: The visualized lung bases are unremarkable. The visualized portions of the heart are within normal limits. Normal liver. Nonvisualized gallbladder and normal extrahepatic biliary system. Normal spleen. Normal pancreas. Normal bilateral adrenal glands. Normal right kidney. Normal left kidney. Normal visualized stomach. Normal small intestine. Fluid-filled cecum and proximal ascending colon is nonspecific, otherwise normal colon. The appendix is visualized and appears normal. Normal abdominal aorta. Normal inferior vena cava. Normal retroperitoneum. Normal urinary bladder. Prostate appears prominent in size, stable since prior exams. There is a stable left-sided inguinal hernia containing adipose tissue. Disc space narrowing L5-S1. CT/Abdomen/Pelvis W IV Cont ONLY IMPRESSION: There is no acute abdomen and pelvic pathology. There is no significant interval change. Electronically Signed: Trinity Knox MD at 0:03 EST , Service support ,
[2018-07-22] MEDS: LORazepam 2 MG/ML Syringe 0.5 MG IV (22:26)
[2018-07-22 22:43] LABS: Lactic Acid 2.7 mmol/L (0.4-2.0)
[2018-07-22 22:47] VITALS: BP 135/94; PULSE 105; RESP 22; O2SAT 98
[2018-07-22 23:17] VITALS: BP 145/95; PULSE 98; RESP 23; TEMP 36.8; O2SAT 99
[2018-07-22] MEDS: 0.9% Normal Saline 1,000 ML 150 ML IV (23:41)
[2018-07-23] VITALS (15 sets, daily range): BP systolic 127–158; BP diastolic 77–99; PULSE 61–141; RESP 18–24; TEMP 36.4–37.3; O2SAT 98–100; BMI 25.2; BMI 25.5
[2018-07-23] MEDS: proMETHazine 25 MG/ML Syringe 12.5 MG IV ×2 (00:05→17:50)
--- NOTE | 2018-07-23 00:29 | PCM.HP.STD ---
Problem List (1) Acute gastroenteritis Status: Acute (2) Cannabis abuse Status: Chronic (3) Insomnia Status: Chronic (4) Depression Status: Chronic Qualifiers: (5) Anxiety Status: Chronic History of Present Illness Date of Admission: 07/23/18 Chief Complaint: Nausea, vomiting, diarrhea. The patient is a 33 year old M with past medical history as mentioned above presented to the emergency room because of nausea, vomiting and diarrhea as well as abdominal pain. His illness started today 3 hours after he ate at [employer] with nausea and vomiting, persistent, lasted for hours, more than 12 times within 3 hours, followed by diarrhea, 2-3 times, semiliquid stool without blood and then he started having abdominal pain. The abdominal pain was in the mid abdomen, periumbilical, colicky pain, 8 out of 10 in severity, not radiating, continued to have persistent nausea and vomiting with as well as sweating and without aggravating or relieving factors. He denies fever or chills. In the emergency department, patient was afebrile, tachycardic, blood pressure was stable, tachypneic and pulse ox was normal on room air. His routine blood work was remarkable for leukocytosis with neutrophilia, potassium of 3.4. LFT and lipase were normal. Lactic acid was 2.7. CT scan abdomen and pelvis with IV contrast revealed no evidence of acute intra-abdominal or pelvic pathology. He is being admitted for abdominal pain/intractable nausea and vomiting with diarrhea likely due to acute probably viral gastroenteritis complicated by severe sepsis. Past Medical History Past Medical History (Chronic Problems): Chronic Problems Cannabis abuse (Chronic) Insomnia (Chronic) Depression (Chronic) Anxiety (Chronic) Noncompliance with medication regimen (Chronic) Allergies No Known Allergies Allergy (Verified 07/22/18 20:43) Home Medications: Ambulatory Orders Medication Instructions Recorded ALPRAZolam [Xanax] 0.25 mg PO DAILY PRN 10/10/17 Quetiapine Fumarate [Seroquel] 100 mg PO QHS 10/10/17 Sertraline HCl [Zoloft] 100 mg PO QHS 10/10/17 Mirtazapine [Remeron] 15 mg PO DAILY 07/22/18 Surgical History: cholecystectomy, tonsillectomy Psychiatric History: Anxiety, Depression Lives: With Family Smoking Status: Current every day smoker Tobacco Use: Cigarettes Alcohol: None Drugs: Marijuana - *Family History Maternal History Items: Stroke Paternal History Items: High Cholesterol, Hypertension Review of Systems Constitutional: Reports: Anorexia. Denies: Chills, Fever, Weakness Eyes: Denies: Blurred vision, Double vision, Drainage, Redness HEENT: Denies: Difficulty Hearing, Ear Pain, Eye Pain, Nasal Congestion, Sore Throat Cardiovascular: Denies: Chest Pain, Chest Pressure, Chest Tightness, Light Headedness, Palpitations, Syncope Respiratory: Denies: Cough, Pleuritic Pain, Shortness of Breath, Sputum production, Wheezing Gastrointestinal: Reports: Abdominal Pain, Diarrhea, Nausea, Vomiting. Denies: Constipation Genitourinary: Denies: Dysuria, Frequency, Hematuria Musculoskeletal: Denies: Arm Pain, Back Pain, Foot Pain Skin: Denies: Dryness, Rash Neurological: Denies: Balance problems, Blurred vision, Double vision, Change in Speech, Slurred speech, Focal weakness, Numbness Psychiatric: Reports: Anxiety, Depression Endocrine: Denies: Change in Body Habitus, Polydipsia VTE Information - Inpt Only VTE Present on Admission: No VTE Mechan Device Prophylaxis: None VTE Pharm Prophylaxis ordered?: No Patient Problems: Active and Suspected Problems Acute gastroenteritis (Acute) Severe sepsis (Acute) - Physical Exam General: Alert, Oriented x3, Cooperative, - - Mildly dyspneic, perfuse sweating. HEENT: Atraumatic, PERRLA, EOMI, Normocephalic Oral: Moist Mucosa, No Gingival or Mucosal Lesions/ Ulcerations Neck: Supple, No JVD, Negative Carotid Bruits, Trachea Midline, Thyroid Normal Size and Texture Lungs: Clear to auscultation, No rhonchi, No wheeze, No rales, Diminished Cardiovascular: Regular rate, Regular Rhythm, Normal S1, Normal S2, No murmurs, PMI Normal, Tachycardic Abdomen: Bowel Sounds Present, No Hepato-splenomegaly, Distended, Tender - Tenderness, no guarding or rigidity. Extremities: No clubbing, No cyanosis, No edema Skin: No rashes, No breakdown Lymphatic: No Cervical, Supraclavicular, or Inguinal Adenopathy Neurological: Cranial nerves II-XII grossly intact, Motor Exam 5/5 strength throughout Psych/Mental Status: Normal Affect, Appropriate, Alert and oriented to time, place, person, mood and affect Vital Signs Temp Pulse Resp BP Pulse Ox 98.2 F 98 23 H 145/95 H 99 07/22/18 23:17 07/22/18 23:17 07/22/18 23:17 07/22/18 23:17 07/22/18 23:17 Oxygen Delivery Method Room Air Weight: 193 lb 1.999 oz Body Mass Index (BMI) 25.4 Laboratory Tests Past 24 Hrs 07/22/18 07/22/18 07/22/18 20:55 20:55 22:05 WBC 17.9 H RBC 5.32 Hgb 16.3 Hct 47.2 MCV 88.7 MCH 30.6 MCHC 34.5 RDW 13.4 RDW Differential 43.4 Plt Count 292 MPV 9.6 Immature Gran % (Auto) 0.300 Neut % (Auto) 75.2 H Lymph % (Auto) 15.0 L [place] % (Auto) 7.0 Eos % (Auto) 2.0 Baso % (Auto) 0.5 Absolute Neuts (auto) 13.4 H Absolute Lymphs (auto) 2.68 Total Counted Not Reportable Sodium 142 Potassium 3.4 L Chloride 103 Carbon Dioxide 26.0 Anion Gap 13 BUN 10 Creatinine 1.27 Estim Creat Clear Calc 95.24 Est GFR (MDRD) Af Amer 85 Est GFR (MDRD) Non-Af 70 BUN/Creatinine Ratio 7.9 L Glucose 128 H Lactic Acid 2.7 H Calcium 9.9 Total Bilirubin 0.50 Direct Bilirubin 0.12 AST 14 L ALT 25 Alkaline Phosphatase 98 Total Protein 8.6 H Albumin 4.8 Globulin 3.8 Lipase 86 Clinical Impression(s) from Imaging Studies Abdomen/Pelvis CT 07/22/18 21:52 IMPRESSION: There is no acute abdomen and pelvic pathology. There is no significant interval change. Electronically Signed: Trinity Knox MD at 0:03 EST , Service support , Assessment/Plan All Active Problems Acute gastroenteritis (Acute) Severe sepsis (Acute) This is a 33 years old male patient presented to the emergency room because of nausea, vomiting, diarrhea and abdominal pain that started 3 hours after he ate at [employer], found to have findings consistent with acute gastroenteritis probably viral as well as severe sepsis. #1 acute gastroenteritis/severe sepsis: This is probably viral secondary to food poisoning, bacterial etiology cannot be ruled out. Patient is tachycardic, tachypneic, has leukocytosis, sweaty, ill looking and his lactic acid was 2.7. His blood pressure stable. LFT and lipase were normal. Patient had cholecystectomy [address] scan abdomen and pelvis with IV contrast showed no acute findings as noted above. Plan: Admit to MedSur floor, cardiac monitoring, keep on clear liquids, gentle IV fluids for hydration, IV Protonix twice daily, repeat lactic acid in 3 hours, IV antiemetics, IV morphine as needed, stool for C. difficile, stool for enteric pathogens including Salmonella and Shigella, repeat CBC and CMP tomorrow morning. #2 mild hypokalemia: Likely because of intractable nausea and vomiting. Plan to replace potassium with IV potassium chloride, repeat BMP tomorrow morning. #3 anxiety/depression/insomnia: If patient tolerated, continue Xanax, Remeron, Seroquel and Zoloft. #4 DVT prophylaxis: Low-risk patient, no prophylaxis indicated. This note was generated with [employer] dictation software. It may contain incorrect words, spelling, and punctuation that were not noted in checking the note before signing. Code Visit Inpatient E&M: 11194 Init Hosp L3
--- NOTE | 2018-07-23 00:33 | HP.PCM_ITS ---
Problem List (1) Acute gastroenteritis Status: Acute (2) Cannabis abuse Status: Chronic (3) Insomnia Status: Chronic (4) Depression Status: Chronic Qualifiers: (5) Anxiety Status: Chronic History of Present Illness Date of Admission: 07/23/18 Chief Complaint: Nausea, vomiting, diarrhea. The patient is a 33 year old M with past medical history as mentioned above presented to the emergency room because of nausea, vomiting and diarrhea as well as abdominal pain. His illness started today 3 hours after he ate at [employer] with nausea and vomiting, persistent, lasted for hours, more than 12 times within 3 hours, followed by diarrhea, 2-3 times, semiliquid stool without blood and then he started having abdominal pain. The abdominal pain was in the mid abdomen, periumbilical, colicky pain, 8 out of 10 in severity, not radiating, continued to have persistent nausea and vomiting with as well as sweating and without aggravating or relieving factors. He denies fever or chills. In the emergency department, patient was afebrile, tachycardic, blood pressure was stab le, tachypneic and pulse ox was normal on room air. His routine blood work was remarkable for leukocytosis with neutrophilia, potassium of 3.4. LFT and lipase were normal. Lactic acid was 2.7. CT scan abdomen and pelvis with IV contrast revealed no evidence of acute intra-abdominal or pelvic pathology. He is being admitted for abdominal pain/intractable nausea and vomiting with diarrhea likely due to acute probably viral gastroenteritis complicated by severe sepsis. Past Medical History Past Medical History (Chronic Problems): Chronic Problems Cannabis abuse (Chronic) Insomnia (Chronic) Depression (Chronic) Anxiety (Chronic) Noncompliance with medication regimen (Chronic) Allergies No Known Allergies Allergy (Verified 07/22/18 20:43) Home Medications: Ambulatory Orders Medication Instructions Recorded ALPRAZolam [Xanax] 0.25 mg PO DAILY PRN 10/10/17 Quetiapine Fumarate [Seroquel] 100 mg PO QHS 10/10/17 Sertraline HCl [Zoloft] 100 mg PO QHS 10/10/17 Mirtazapine [Remeron] 15 mg PO DAILY 07/22/18 Surgical History: cholecystectomy, tonsillectomy Psychiatric History: Anxiety, Depression Lives: With Family Smoking Status: Current every day smoker Tobacco Use: Cigarettes Alcohol: None Drugs: Marijuana - *Family History Maternal History Items: Stroke Paternal History Items: High Cholesterol, Hypertension Review of Systems Constitutional: Reports: Anorexia. Denies: Chills, Fever, Weakness Eyes: Denies: Blurred vision, Double vision, Drainage, Redness HEENT: Denies: Difficulty Hearing, Ear Pain, Eye Pain, Nasal Congestion, Sore Throat Cardiovascular: Denies: Chest Pain, Chest Pressure, Chest Tightness, Light Headedness, Palpitations, Syncope Respiratory: Denies: Cough, Pleuritic Pain, Shortness of Breath, Sputum production, Wheezing Gastrointestinal: Reports: Abdominal Pain, Diarrhea, Nausea, Vomiting. Denies: Constipation Genitourinary: Denies: Dysuria, Frequency, Hematuria Musculoskeletal: Denies: Arm Pain, Back Pain, Foot Pain Skin: Denies: Dryness, Rash Neurological: Denies: Balance problems, Blurred vision, Double vision, Change in Speech, Slurred speech, Focal weakness, Numbness Psychiatric: Reports: Anxiety, Depression Endocrine: Denies: Change in Body Habitus, Polydipsia VTE Information - Inpt Only VTE Present on Admission: No VTE Mechan Device Prophylaxis: None VTE Pharm Prophylaxis ordered?: No Patient Problems: Active and Suspected Problems Acute gastroenteritis (Acute) Severe sepsis (Acute) - Physical Exam General: Alert, Oriented x3, Cooperative, - - Mildly dyspneic, perfuse sweating. HEENT: Atraumatic, PERRLA, EOMI, Normocephalic Oral: Moist Mucosa, No Gingival or Mucosal Lesions/ Ulcerations Neck: Supple, No JVD, Negative Carotid Bruits, Trachea Midline, Thyroid Normal Size and Texture Lungs: Clear to auscultation, No rhonchi, No wheeze, No rales, Diminished Cardiovascular: Regular rate, Regular Rhythm, Normal S1, Normal S2, No murmurs, PMI Normal, Tachycardic Abdomen: Bowel Sounds Present, No Hepato-splenomegaly, Distended, Tender - Tenderness, no guarding or rigidity. Extremities: No clubbing, No cyanosis, No edema Skin: No rashes, No breakdown Lymphatic: No Cervical, Supraclavicular, or Inguinal Adenopathy Neurological: Cranial nerves II-XII grossly intact, Motor Exam 5/5 strength throughout Psych/Mental Status: Normal Affect, Appropriate, Alert and oriented to time, place, person, mood and affect Vital Signs Temp Pulse Resp BP Pulse Ox 98.2 F 98 23 H 145/95 H 99 07/22/18 23:17 07/22/18 23:17 07/22/18 23:17 07/22/18 23:17 07/22/18 23:17 Oxygen Delivery Method Room Air Weight: 193 lb 1.999 oz Body Mass Index (BMI) 25.4 Laboratory Tests Past 24 Hrs 07/22/18 07/22/18 07/22/18 20:55 20:55 22:05 WBC 17.9 H RBC 5.32 Hgb 16.3 Hct 47.2 MCV 88.7 MCH 30.6 MCHC 34.5 RDW 13.4 RDW Differential 43.4 Plt Count 292 MPV 9.6 Immature Gran % (Auto) 0.300 Neut % (Auto) 75.2 H Lymph % (Auto) 15.0 L [place] % (Auto) 7.0 Eos % (Auto) 2.0 Baso % (Auto) 0.5 Absolute Neuts (auto) 13.4 H Absolute Lymphs (auto) 2.68 Total Counted Not Reportable Sodium 142 Potassium 3.4 L Chloride 103 Carbon Dioxide 26.0 Anion Gap 13 BUN 10 Creatinine 1.27 Estim Creat Clear Calc 95.24 Est GFR (MDRD) Af Amer 85 Est GFR (MDRD) Non-Af 70 BUN/Creatinine Ratio 7.9 L Glucose 128 H Lactic Acid 2.7 H Calcium 9.9 Total Bilirubin 0.50 Direct Bilirubin 0.12 AST 14 L ALT 25 Alkaline Phosphatase 98 Total Protein 8.6 H Albumin 4.8 Globulin 3.8 Lipase 86 Clinical Impression(s) from Imaging Studies Abdomen/Pelvis CT 07/22/18 21:52 IMPRESSION: There is no acute abdomen and pelvic pathology. There is no significant interval change. Electronically Signed: Trinity Knox MD at 0:03 EST , Service support , Assessment/Plan All Active Problems Acute gastroenteritis (Acute) Severe sepsis (Acute) This is a 33 years old male patient presented to the emergency room because of nausea, vomiting, diarrhea and abdominal pain that started 3 hours after he ate at [employer], found to have findings consistent with acute gastroenteritis probably viral as well as severe sepsis. #1 acute gastroenteritis/severe sepsis: This is probably viral secondary to food poisoning, bacterial etiology cannot be ruled out. Patient is tachycardic, tachypneic, has leukocytosis, sweaty, ill looking and his lactic acid was 2.7. His blood pressure stable. LFT and lipase were normal. Patient had cholecystectomy [address] scan abdomen and pelvis with IV contrast showed no acute findings as noted above. Plan: Admit to MedSurg floor, cardiac monitoring, keep on clear liquids, gentle IV fluids for hydration, IV Protonix twice daily, repeat lactic acid in 3 hours, IV antiemetics, IV morphine as needed, stool for C. difficile, stool for enteric pathogens including Salmonella and Shigella, repeat CBC and CMP tomorrow morning. #2 mild hypokalemia: Likely because of intractable nausea and vomiting. Plan to replace potassium with IV potassium chloride, repeat BMP tomorrow morning. #3 anxiety/depression/insomnia: If patient tolerated, continue Xanax, Remeron, Seroquel and Zoloft. #4 DVT prophylaxis: Low-risk patient, no prophylaxis indicated. This note was generated with [employer] dictation software. It may contain incorrect words, spelling, and punctuation that were not noted in checking the note before signing. Code Visit Inpatient E&M: 56887 Init Hosp L3
[2018-07-23] MEDS: 0.9% Normal Saline 1,000 ML 1000 ML IV (01:25)
[2018-07-23] MEDS: Morphine 2 MG/ML Syringe IV ×2 (01:35→06:06)
[2018-07-23 01:50] LABS: Lactic Acid 3.1 mmol/L (0.4-2.0)
[2018-07-23] MEDS: proMETHazine 25 MG/ML Syringe 6.25 MG IV (01:59)
[2018-07-23] MEDS: Potassium Chloride 10mEq/100mL 10 MEQ/100 ML IV.SOLN. 100 MEQ IV BOLUS ×2 (02:09→03:25)
[2018-07-23 02:11] LABS: Reflex Lactate? Y
[2018-07-23] MEDS: 0.9% Normal Saline 1,000 ML 150 ML IV ×3 (02:30→22:54)
[2018-07-23] MEDS: Ondansetron 4 MG/2 ML Vial IV ×2 (02:36→11:15)
[2018-07-23 03:22] LABS: Lactic Acid 2.2 mmol/L (0.4-2.0)
[2018-07-23 04:53] LABS: Reflex Lactate? Y
[2018-07-23 05:51] LABS: Absolute Lymphocyte Count 0.77 X10^3/ul (0.83-4.51); Absolute Neutrophil Count 10.5 X10^3/uL (2.0-7.7); Basophil# 0.02 X10^3/uL; Basophil% 0.2 % (0-1); Hematocrit 38.6 % (40-54); Hemoglobin 13.1 g/dl (13.0-16.5); Lymphocyte # 0.77 X10^3/ul (4.0); Lymphocyte % 6.6 % (19-41); Mean Corp Hgb Conc 33.9 g/gl (32-36); Mean Corpuscular Hgb 29.8 pg (27.0-32.0); Mean Corpuscular Volume 87.9 fL (80-94); Mean Platelet Vol. 9.9 fl (6.2-12.0); Monocyte# 0.41 X10^3/uL; Monocyte% 3.5 % (0-10); Neutrophil # 10.52 X10^3/uL (2.7-7.7); Neutrophil % 89.4 % (47-70); Platelet Count 243 K/mm3 (150-450); RBC Distribution Width CV 13.2 % (11.6-14.6); RBC Distribution Width SD 42.8 fl (35.1-43.9); Red Blood Count 4.39 M/mm3 (4.6-6.2); White Blood Count 11.8 K/mm3 (4.4-11.0)
[2018-07-23 05:52] LABS: POSITIVE COUNT NO; POSITIVE DIFFERENTIAL NO; POSITIVE MORPHOLOGY NO
[2018-07-23 06:02] LABS: Lactic Acid 1.4 mmol/L (0.4-2.0)
[2018-07-23 06:26] LABS: ALB/GLOB Ratio 1.4 RATIO (0.9-2.4); AST(SGOT) 12 U/L (15-37); Alanine Aminotransfer ALT/SGPT 20 U/L (16-61); Albumin, Serum 3.8 g/dL (3.2-5.0); Alkaline Phosphatase 74 U/L (45-117); Anion Gap 10 (5-15); BUN 6 mg/dL (7-18); BUN/Creat Ratio 6.7 RATIO (10-20); Calcium,Total 8.3 mg/dL (8.5-10.1); Chloride 114 mmol/L (98-107); Creatinine, Serum 0.89 mg/dL (0.70-1.30); EST Glomerular Filtration Rate 106 mL/min (>60); Est Glom Filt Rate - Afr Amer 128 mL/min (>60); Estimated Creatinine Clearance 135.91 ml/min; Globulin 2.8 g/dL (2.2-4.2); Glucose 135 mg/dL (74-106); Potassium 3.6 mmol/L (3.5-5.1); Protein, Total 6.6 g/dL (6.4-8.2); Sodium Level 144 mmol/L (136-145)
[2018-07-23] MEDS: LORazepam 2 MG/ML Syringe 1 MG IV (06:47)
--- NOTE | 2018-07-23 07:03 | PN_ITS ---
Patient Problems: Active and Suspected Problems Acute gastroenteritis (Acute) Severe sepsis (Acute) Subjective: Patient this morning following cold shower, more relaxed status post IV Ativan is unable to take his oral Xanax prior to that notes he is feeling improved and eager to initiate diet. Discussed need to avoid high fat at length secondary to status post cholecystectomy as he and his family note that his diet has been very poor and he frequently eats out at fast food restaurants. Also discussed his chronic usage of cannabis, synthetic, concentrated and recommended this be discontinued as his current presentation may be cyclic vomiting syndrome versus gastroenteritis versus foodborne pathogen but unclear at this time. Patient notes that he does intend to continue marijuana usage but intends to switch to the flower. Patient this morning has had bouts of emesis, nausea as well as abdominal cramping but improved daily at the moment of evaluation. Patient denies fevers, chills, chest pain or dyspnea. Objective: Physical Examination: General: awake, alert, oriented x 3 and cooperative, seated upright in bed in no apparent distress, notes currently improved, denies nausea, notes abdominal cramping current completely resolved. Skin: normal color, turgor, no icterus, cyanosis. HEENT: AT/NC, EOMI, PERRLA, improved less dry MM. Lungs: CTA bilaterally, moderate effort, mild decrease BL bases, no rales, ronchi or wheezing. Heart: Regular rate and rhythm; no gallop, rub audible. Abdomen: soft, currently improved, NTTP, ND, normalized BS. Extremities: no cyanosis, clubbing, or edema. Neurological: patient awake, alert, oriented x 3; cognitive function intact; pupils equally reactive to light and accomodation; cranial nerves II-XII grossly normal, moving all 4 extremities, no focal deficits, strength improved, mildly globally decreased given acute presentation. Psychiatric: affect appears normal, no acute evidence of depressive or anxiety feelings. Vitals/I&O's: Vital Signs Temp Pulse Resp BP Pulse Ox 99 F 99 20 H 143/84 H 100 07/23/18 06:09 07/23/18 06:09 07/23/18 06:09 07/23/18 06:09 07/23/18 06:09 Oxygen Delivery Method Room Air Weight: 191 lb 8 oz Body Mass Index (BMI) 25.2 Intake and Output for Last 24 Hours 07/21/18 07/22/18 07/23/18 23:59 23:59 23:59 Intake Total 1700 / 1700 Output Total 200 / 200 Balance 1500 / 1500 Microbiology Past 72 Hours 07/23/18 00:20 Stool C. difficile DNA Amplification - Final Laboratory Results 07/22/18 20:55: WBC 17.9 H, RBC 5.32, Hgb 16.3, Hct 47.2, MCV 88.7, MCH 30.6, MCHC 34.5, RDW 13.4, RDW Differential 43.4, Plt Count 292, MPV 9.6, Immature Gran % (Auto) 0.300, Neut % (Auto) 75.2 H, Lymph % (Auto) 15.0 L, [place] % (Auto) 7.0, Eos % (Auto) 2.0, Baso % (Auto) 0.5, Absolute Neuts (auto) 13.4 H, Absolute Lymphs (auto) 2.68, Total Counted Not Reportable 07/22/18 20:55: Sodium 142, Potassium 3.4 L, Chloride 103, Carbon Dioxide 26.0, Anion Gap 13, BUN 10, Creatinine 1.27, Estim Creat Clear Calc 95.24, Est GFR (MDRD) Af Amer 85, Est GFR (MDRD) Non-Af 70, BUN/Creatinine Ratio 7.9 L, Glucose 128 H, Calcium 9.9, Total Bilirubin 0.50, Direct Bilirubin 0.12, AST 14 L, ALT 25, Alkaline Phosphatase 98, Total Protein 8.6 H, Albumin 4.8, Globulin 3.8, Lipase 86 07/22/18 22:05: Lactic Acid 2.7 H 07/23/18 00:45: Lactic Acid 3.1 H 07/23/18 02:35: Lactic Acid 2.2 H 07/23/18 05:15: WBC 11.8 H, RBC 4.39 L, Hgb 13.1, Hct 38.6 L, MCV 87.9, MCH 29.8, MCHC 33.9, RDW 13.2, RDW Differential 42.8, Plt Count 243, MPV 9.9, Ca ture Gran % (Auto) 0.300, Neut % (Auto) 89.4 H, Lymph % (Auto) 6.6 L, [place] % (Auto) 3.5, Eos % (Auto) 0.0, Baso % (Auto) 0.2, Absolute Neuts (auto) 10.5 H, Absolute Lymphs (auto) 0.77 L, Total Counted Not Reportable 07/23/18 05:15: Sodium 144, Potassium 3.6, Chloride 114 H, Carbon Dioxide 20.0 L , Anion Gap 10, BUN 6 L, Creatinine 0.89, Estim Creat Clear Calc 135.91, Est GFR (MDRD) Af Amer 128, Est GFR (MDRD) Non-Af 106, BUN/Creatinine Ratio 6.7 L, Glucose 135 H, Calcium 8.3 L, Total Bilirubin 0.50, AST 12 L, ALT 20, Alkaline Phosphatase 74, Total Protein 6.6, Albumin 3.8, Globulin 2.8, Albumin/Globulin Ratio 1.4 07/23/18 05:15: Lactic Acid 1.4 Current Medications Acetaminophen (Tylenol) 650 mg PO Q6H PRN PRN PRN Reason: Fever, headache, pain Alprazolam (Xanax) 0.25 mg PO DAILY PRN PRN PRN Reason: ANXIETY Sodium Chloride () 1,000 mls @ 150 mls/hr IV .[id number] BRENNAN Last Admin: 07/23/18 02:30 Dose: 150 mls/hr Pantoprazole Sodium 40 mg/ (Sodium Chloride) 110 mls @ 330 mls/hr IV Q12 BRENNAN Mirtazapine (Remeron) 15 mg PO DAILY [facility] Morphine Sulfate () 1 - 2 mg IV Q4H PRN PRN PRN Reason: SEVERE PAIN (6-10/10) Last Admin: 07/23/18 06:06 Dose: 2 mg Ondansetron HCl (Zofran) 4 mg IV Q6H PRN PRN PRN Reason: NAUSEA/VOMITING Last Admin: 07/23/18 02:36 Dose: 4 mg Promethazine HCl (Phenergan) 12.5 mg IV Q4H PRN PRN PRN Reason: NAUSEA/VOMITING Quetiapine Fumarate (Seroquel) 100 mg PO QHS [facility] Sertraline HCl (Zoloft) 100 mg PO QHS [facility] Medical Necessity - Tobacco Use Smoking Status: Current every day smoker Tobacco Use: Cigarettes, - Assessment/Plan All Active Problems Acute gastroenteritis (Acute) Severe sepsis (Acute) The patient is a 33 y/o M w/ PMHx: Anxiety and Depression/? Bipolar Disorder, Tobacco use, Chronic Frequent Cannabis usage who presents to the [facility] ED on 07/23/18 with intractable nausea, emesis and loose stools noting this started ~ 3 hours following eating [employer] with concurrent mid abdominal periumbilical cramping 8 out of 10 pain. (1) Severe Sepsis secondary to N/V/D, ? Gastroenteritis versus Food Borne Pathogen versus Cyclic Vomiting Syndrome secondary to Chronic Cannabis Usage: ED presentation with HR 114, increased RR, CBC w/ WBC 17.9 with L shift, LA 2.7, CT A/P unremarkable. Admitted to MS, maintained on aggressive IVFs, negative c- diff, pending stool cx. 07/23/18 repeat labs improved with CBC w/ WBC 11.8 with improved L shift, LA 2.7-->2.2-->1.4, likely secondary to dehydration with GI losses. Will not start antibiotics at this time given unclear source pending stool studies as may be viral gastroenteritis. Anti-emetics, pain regimen PRN. Attempted trial diet transition as noted feeling improved and examination unremarkable; however, following this afternoon had, emesis with attempts, will limit to clears, maintain on IV PPI, continue IVFs, discharge to home once tolerating diet/oral intake. Given need for OR will obtain CXR, EKG while in the ED in addition to PT/INR, PTT. (2) Anxiety and Depression/? Bipolar Disorder: Notes he is attempting counseling center decrease/taper, he notes preference to transition to cannabis only. Currently using concentrated cannabis, synthetic. Attempted to discuss that this may not be the best course especially if this is contributing to his nausea, emesis. Encouraged regular counseling center follow-up. (3) Chronic Cannabis Usage: Currently using concentrated cannabis, synthetic and notes that given his current presentation he intends to transition back to the flower only. Discussed at length that cyclic vomiting syndrome real entity and may not in his best interest. (4) Tobacco Abuse: Encouraged cessation, inpatient consultation per RT, NR if desired. (5) GERD: PPI. (6) DVT Prophylaxis: Low risk, encourage ambulation. Code Visit Procedures: Other Procedure - See Report - No charge, admitted after midnight: [id number]
--- NOTE | 2018-07-23 08:51 | DCINST_ITS ---
- Discharge Diagnoses Current Active Problems: Current Active and Chronic Problems (1) Severe Sepsis (Suspect leukocytosis and elevated lactic acid secondary to dehydration primarily w/ GI losses; however, cannot rule out severe sepsis) secondary to Acute gastroenteritis, Possible Food Borne Illness versus possible Cyclic Vomiting Syndrome secondary to Chronic Cannabis Usage (2) Anxiety and Depression (3) Chronic Cannabis Usage (4) Insomnia (5) Hypokalemia (6) You will use the following diet at home:: Other - Low fat diet Your food should be the consistency of: Regular Your liquids should be the consistency of: Regular/Thin Discharge Activity: - - Avoid aggressive activity until oral intake normalized and no further nausea, emesis or diarrhea. Please avoid concentrated cannabis usage as discussed. May resume sexual activity in: - - Once GI symptoms are completely resolved. Call your doctor if you observe: Fever of 101 or Higher, Inability to urinate, Inability to have a bowel movement, Shortness of breath, Dizziness, Fainting spells, Chest pain, Uncontrolled pain, - - Recurrent nausea, emesis, diarrhea, abdominal pain. Instructions: ED Gastroenteritis Vs Food Poison, Understanding Marijuana Abuse, ED Nausea Vomiting Pending Tests on Discharge: Stool enteric pathogen panel pending upon discharge. Clostridium difficile assay negative. Allergies/Adverse Reactions: Allergies No Known Allergies Allergy (Verified 07/22/18 20:43) Medications to take at Discharge ALPRAZolam [Xanax] 0.25 mg PO DAILY PRN 10/10/17 Quetiapine Fumarate [Seroquel] 100 mg PO QHS 10/10/17 Sertraline HCl [Zoloft] 100 mg PO QHS 10/10/17 Mirtazapine [Remeron] 15 mg PO DAILY 07/22/18 Omeprazole [Prilosec] 20 mg PO BID #60 capsule 07/23/18 Ondansetron HCl [Zofran] 8 mg PO Q6H PRN PRN #20 tablet 07/23/18 proMETHazine tablet [Phenergan tablet] 12.5 - 25 mg PO Q6H PRN PRN #20 tablet 07/23/18 The following prescriptions were given: Ondansetron HCl [Zofran] 8 mg PO Q6H PRN PRN #20 tablet PRN Reason: nausea, emesis proMETHazine tablet [Phenergan tablet] 12.5 - 25 mg PO Q6H PRN PRN #20 tablet PRN Reason: nausea, emesis Omeprazole [Prilosec] 20 mg PO BID #60 capsule Primary Care Physician: Care Physician,No Primary [Primary Care Provider] - Please follow up with your Primary Care Physician in: Please establish with primary care, follow-up within 1-2 weeks. Test Results: Test results from this visit will be discussed in further detail at your follow- up appointment, if applicable. Please Follow Up With: Counseling/Psychiatry When: Please continue to follow, medication alterations only per their direction. Proposed Discharge Date: 07/23/18
--- NOTE | 2018-07-23 08:56 | DS.PCM_ITS ---
Discharge Date and Diagnosis - Problem List Patient Problems: Active and Suspected Problems Acute gastroenteritis (Acute) Severe sepsis (Acute) Date of Admission: 07/23/18 Date of Discharge: 07/24/18 - Primary Discharge Diagnosis Active and Suspected Problems (1) Severe Sepsis (Suspect leukocytosis and elevated lactic acid secondary to dehydration primarily w/ GI losses; however, cannot rule out severe sepsis) secondary to Acute gastroenteritis, Possible Food Borne Illness versus possible Cyclic Vomiting Syndrome secondary to Chronic Cannabis Usage (2) Anxiety and Depression (3) Chronic Cannabis Usage (4) Insomnia (5) Hypokalemia - Secondary Discharge Diagnosis Chronic Problems Cannabis abuse (Chronic) Insomnia (Chronic) Depression (Chronic) Anxiety (Chronic) Noncompliance with medication regimen (Chronic) Hospital Course and Treatment Operations: None Procedures: None Summary of Care Provided: The patient is a 33 y/o M w/ PMHx: Anxiety and Depression/? Bipolar Disorder, Tobacco use, Chronic Frequent Cannabis usage who presents to the [facility] ED on 07/23/18 with intractable nausea, emesis and loose stools noting this started ~ 3 hours following eating [employer] with concurrent mid abdominal periumbilical cramping 8 out of 10 pain. ED presentation with HR 114, increased RR, CBC w/ WBC 17.9 with L shift, LA 2.7, CT A/P unremarkable. Admitted to DE, maintained on aggressive IVFs, negative c-diff, negative stool cx, no marked diarrhea during admission. 07/23/18 and 07/24/18 labs improved w/ resolution of WBC elevation and shift with only IVFs, LA normalized 2.7-->2.2-->1.4 with only IVFs, therefore presentation likely secondary to dehydration with GI losses and not severe sepsi s. Patient treated w/ Anti-emetics, pain regimen PRN. Attempted trial diet transition as noted feeling improved and examination unremarkable; however, following had recurrent emesis with attempts, returned to clears and repeated trial. Staff noting that patient emesis following guzzling water. Discussed avoidance of this habit with patient several times. He was noted to tolerate meals and then guzzle inappropriate amounts of water which would then lead to emesis. Despite strong recommendations and discussions patient repeated these patterns. Finally, requested staff to visit with him while he ate, encourage avoidance of inappropriate water intake following and patient was noted to then tolerate his meal without issue. Continued his psychiatric regimen and encouraged avoidance of tapering his regimen himself and only with the counseling center with close follow-up given these behaviors noted during admission. Maintained on PPI and continued upon discharge. Suspect some underlying borderline personality disorder. If ongoing nausea, emesis issues despite appropriate psychiatric regimen and visualized not guzzling water then may need endoscopy which was discussed with patient prior to discharge and recommended consideration of follow-up if needed with Dr. Young. Patient repeated during admission noted concerns about his anxiety and needing his psychiatric regimen at very specific times following his meal. Encouraged avoidance of cannabis usage as may have contributed to his presentation as well; however, despite thorough discussion, during admission noted intention given usa ge of concentrated synthetic cannabis, noted intention to transition back to the flower only. Patient discharged to home with encouraged close counseling center follow-up and recommended PCP follow-up within 3-5 days with requested choice of PCP from list and offered VM to be left with their office. DAY OF DISCHARGE PROGRESS NOTE: Subjective: Patient without acute event overnight per self and nursing report. Patient has been found during admission to be guzzling water, and appropriate amounts following meal intake and having emesis only following this. Strongly encouraged genetic educated patient against this habit and despite this repeated this habit. Required evaluation of patient and again reminder following intake to avoid with improvement. Patient still intermittently anxious during admission and requesting discharge to home as he notes that he would likely be less anxious outpatient as opposed in the hospital and this is contributing to his nausea, emesis patterns he notes. Patient denies fever, chills, recurrent abdominal pain or diarrhea, chest pain or dyspnea. Patient will be discharged with follow-up with primary care physician within 3-5 days encouraged, [facility] and follow-up with Dr. Young recommended if further GI concerns. Objective: T 98, heart rate 99, BP 126/82, respiratory rate 18, 99% on room air. Physical Examination: General: awake, alert, oriented x 3 and cooperative, seated upright in bed in no apparent distress, but notes he is anxious and requesting his medications. Skin: normal color, turgor, no icterus, cyanosis. HEENT: AT/NC, EOMI, PERRLA, improved MMM. Lungs: CTA bilaterally, moderate effort, mild decrease BL bases, no rales, ronchi or wheezing. Heart: Regular rate and rhythm; no gallop, rub audible. Abdomen: soft, NTTP, ND, normalized BS. Extremities: no cyanosis, clubbing, or edema. Neurological: patient awake, alert, oriented x 3; cognitive function intact; pupils equally reactive to light and accomodation; cranial nerves II-XII grossly normal, moving all 4 extremities, no focal deficits, strength improved, preserved. Psychiatric: affect appears normal, however notes he is anxious, no acute evidence of depressive or anxiety feelings. Assessment and Plan: Please see hospital summary above. Patient Problems: Active and Suspected Problems Acute gastroenteritis (Acute) Severe sepsis (Acute) - Physical Exam Vital Signs Temp Pulse Resp BP Pulse Ox 99 F 99 20 H 143/84 H 100 07/23/18 06:09 07/23/18 06:09 07/23/18 06:09 07/23/18 06:09 07/23/18 06:09 Oxygen Delivery Method Room Air Weight: 191 lb 8 oz Body Mass Index (BMI) 25.2 Intake and Output for Last 24 Hours 07/21/18 07/22/18 07/23/18 23:59 23:59 23:59 Intake Total 1700 / 1700 Output Total 200 / 200 Balance 1500 / 1500 Microbiology Past 72 Hours 07/23/18 00:20 C. difficile DNA Amplification - Final Stool Laboratory Tests Past 24 Hrs 07/22/18 07/22/18 07/22/18 20:55 20:55 22:05 WBC 17.9 H RBC 5.32 Hgb 16.3 Hct 47.2 MCV 88.7 MCH 30.6 MCHC 34.5 RDW 13.4 RDW Differential 43.4 Plt Count 292 MPV 9.6 Immature Gran % (Auto) 0.300 Neut % (Auto) 75.2 H Lymph % (Auto) 15.0 L [place] % (Auto) 7.0 Eos % (Auto) 2.0 Baso % (Auto) 0.5 Absolute Neuts (auto) 13.4 H Absolute Lymphs (auto) 2.68 Total Counted Not Reportable Sodium 142 Potassium 3.4 L Chloride 103 Carbon Dioxide 26.0 Anion Gap 13 BUN 10 Creatinine 1.27 Estim Creat Clear Calc 95.24 Est GFR (MDRD) Af Amer 85 Est GFR (MDRD) Non-Af 70 BUN/Creatinine Ratio 7.9 L Glucose 128 H Lactic Acid 2.7 H Calcium 9.9 Total Bilirubin 0.50 Direct Bilirubin 0.12 AST 14 L ALT 25 Alkaline Phosphatase 98 Total Protein 8.6 H Albumin 4.8 Globulin 3.8 Albumin/Globulin Ratio Lipase 86 07/23/18 07/23/18 07/23/18 00:45 02:35 05:15 WBC 11.8 H RBC 4.39 L Hgb 13.1 Hct 38.6 L MCV 87.9 MCH 29.8 MCHC 33.9 RDW 13.2 RDW Differential 42.8 Plt Count 243 MPV 9.9 Immature Gran % (Auto) 0.300 Neut % (Auto) 89.4 H Lymph % (Auto) 6.6 L [place] % (Auto) 3.5 Eos % (Auto) 0.0 Baso % (Auto) 0.2 Absolute Neuts (auto) 10.5 H Absolute Lymphs (auto) 0.77 L Total Counted Not Reportable Sodium Potassium Chloride Carbon Dioxide Anion Gap BUN Creatinine Estim Creat Clear Calc Est GFR (MDRD) Af Amer Est GFR (MDRD) Non-Af BUN/Creatinine Ratio Glucose Lactic Acid 3.1 H 2.2 H Calcium Total Bilirubin Direct Bilirubin AST ALT Alkaline Phosphatase Total Protein Albumin Globulin Albumin/Globulin Ratio Lipase 07/23/18 07/23/18 05:15 05:15 WBC RBC Hgb Hct MCV MCH MCHC RDW RDW Differential Plt Count MPV Immature Gran % (Auto) Neut % (Auto) Lymph % (Auto) [place] % (Auto) Eos % (Auto) Baso % (Auto) Absolute Neuts (auto) Absolute Lymphs (auto) Total Counted Sodium 144 Potassium 3.6 Chloride 114 H Carbon Dioxide 20.0 L Anion Gap 10 BUN 6 L Creatinine 0.89 Estim Creat Clear Calc 135.91 Est GFR (MDRD) Af Amer 128 Est GFR (MDRD) Non-Af 106 BUN/Creatinine Ratio 6.7 L Glucose 135 H Lactic Acid 1.4 Calcium 8.3 L Total Bilirubin 0.50 Direct Bilirubin AST 12 L ALT 20 Alkaline Phosphatase 74 Total Protein 6.6 Albumin 3.8 Globulin 2.8 Albumin/Globulin Ratio 1.4 Lipase Discharge Activity: - - Avoid aggressive activity until oral intake normalized and no further nausea, emesis or diarrhea. Please avoid concentrated cannabis usage as discussed. May resume sexual activity in: - - Once GI symptoms are completely resolved. Call your doctor if you observe: Fever of 101 or Higher, Inability to urinate, Inability to have a bowel movement, Shortness of breath, Dizziness, Fainting spells, Chest pain, Uncontrolled pain, - - Recurrent nausea, emesis, diarrhea, abdominal pain. Home Medications: Medications to take at Discharge ALPRAZolam [Xanax] 0.25 mg PO DAILY PRN 10/10/17 Quetiapine Fumarate [Seroquel] 100 mg PO QHS 10/10/17 Sertraline HCl [Zoloft] 100 mg PO QHS 10/10/17 Mirtazapine [Remeron] 15 mg PO DAILY 07/22/18 Omeprazole [Prilosec] 20 mg PO BID #60 capsule 07/23/18 Ondansetron HCl [Zofran] 8 mg PO Q6H PRN PRN #20 tablet 07/23/18 proMETHazine tablet [Phenergan tablet] 12.5 - 25 mg PO Q6H PRN PRN #20 tablet 07/23/18 Following Prescrptions Were Given to Patient: Ondansetron HCl [Zofran] 8 mg PO Q6H PRN PRN #20 tablet PRN Reason: nausea, emesis proMETHazine tablet [Phenergan tablet] 12.5 - 25 mg PO Q6H PRN PRN #20 tablet PRN Reason: nausea, emesis Omeprazole [Prilosec] 20 mg PO BID #60 capsule Primary Care Physician: Care Physician,No Primary [Primary Care Provider] - Please follow up with your Primary Care Physician in: Please establish with primary care, follow-up within 1-2 weeks. Please Follow Up With: Counseling/Psychiatry When: Please continue to follow, medication alterations only per their direction. Patient Instructions: Understanding Marijuana Abuse, ED Gastroenteritis Vs Food Poison, ED Nausea Vomiting Disposition: Home Minutes spent on discharge:: 35 Patient Condition:: Fair Medical Necessity - Tobacco Use Smoking Status: Current every day smoker Tobacco Use: Cigarettes, - Meaningful Use Info Meaningful Use Diagnoses (Choose all that apply): None applicable Code Visit Inpatient E&M: 07409 Disch Hosp
--- NOTE | 2018-07-23 11:02 | CASEMGMT ---
DONNY met with patient, introduced self and role at [facility]. Patient is listed as self pay. He said he is in the process of completing an application for [employer]. DONNY gave him information on Krystal [facility], [facility], [facility] [employer], and a PCP list. Bessie JONES
[2018-07-23] MEDS: 0.9% NaCl Peripheral Flush Adult/Peds IV ×2 (11:15→17:51)
[2018-07-23] MEDS: Sertraline 100 MG Tablet PO (12:31)
[2018-07-23] MEDS: QUEtiapine 100 MG Tablet PO (12:31)
[2018-07-23] MEDS: Mirtazapine 15 MG Tablet PO (12:32)
[2018-07-23] MEDS: Mag Hydrox/Al Hydrox/Simeth 30 ML UDC PO (14:20)
[2018-07-23] MEDS: ALPRAZolam 0.25 MG Tablet PO (15:47)
[2018-07-23] MEDS: 0.9% Normal Saline 1,000 ML 999 ML IV (17:22)
[2018-07-24 02:35] VITALS: BP 126/82; PULSE 99; RESP 18; TEMP 36.6; O2SAT 99
[2018-07-24 03:58] VITALS: PULSE 86
[2018-07-24] MEDS: 0.9% Normal Saline 1,000 ML 150 ML IV (05:52)
[2018-07-24 06:58] LABS: Absolute Lymphocyte Count 1.83 X10^3/ul (0.83-4.51); Basophil# 0.03 X10^3/uL; Basophil% 0.3 % (0-1); Eosinophil# 0.05 X10^3/uL; Eosinophils% 0.5 % (0-5); Hematocrit 33.9 % (40-54); Hemoglobin 11.6 g/dl (13.0-16.5); Lymphocyte # 1.83 X10^3/ul (4.0); Lymphocyte % 18.6 % (19-41); Mean Corp Hgb Conc 34.2 g/gl (32-36); Mean Corpuscular Hgb 30.9 pg (27.0-32.0); Mean Corpuscular Volume 90.2 fL (80-94); Mean Platelet Vol. 10.2 fl (6.2-12.0); Monocyte# 0.92 X10^3/uL; Monocyte% 9.3 % (0-10); Neutrophil % 71.1 % (47-70); Platelet Count 215 K/mm3 (150-450); RBC Distribution Width CV 13.8 % (11.6-14.6); RBC Distribution Width SD 44.3 fl (35.1-43.9); Red Blood Count 3.76 M/mm3 (4.6-6.2); White Blood Count 9.9 K/mm3 (4.4-11.0)
[2018-07-24 07:01] LABS: POSITIVE COUNT NO; POSITIVE DIFFERENTIAL NO; POSITIVE MORPHOLOGY NO
[2018-07-24 07:26] LABS: ALB/GLOB Ratio 1.2 RATIO (0.9-2.4); AST(SGOT) 11 U/L (15-37); Alanine Aminotransfer ALT/SGPT 18 U/L (16-61); Albumin, Serum 3.2 g/dL (3.2-5.0); Alkaline Phosphatase 62 U/L (45-117); Anion Gap 8 (5-15); BUN 7 mg/dL (7-18); BUN/Creat Ratio 9.2 RATIO (10-20); Calcium,Total 7.9 mg/dL (8.5-10.1); Chloride 117 mmol/L (98-107); Creatinine, Serum 0.76 mg/dL (0.70-1.30); EST Glomerular Filtration Rate 128 mL/min (>60); Est Glom Filt Rate - Afr Amer 154 mL/min (>60); Estimated Creatinine Clearance 159.16 ml/min; Globulin 2.7 g/dL (2.2-4.2); Glucose 86 mg/dL (74-106); Potassium 3.4 mmol/L (3.5-5.1); Protein, Total 5.9 g/dL (6.4-8.2); Sodium Level 148 mmol/L (136-145)
[2018-07-24] MEDS: Mag Hydrox/Al Hydrox/Simeth 30 ML UDC PO (07:48)
[2018-07-24] MEDS: proMETHazine 25 MG/ML Syringe 12.5 MG IV (07:48)
[2018-07-24] MEDS: ALPRAZolam 0.25 MG Tablet PO (07:48)
[2018-07-24 08:35] VITALS: BP 148/100; PULSE 89; RESP 18; TEMP 36.5; O2SAT 95
[2018-07-24 09:15] VITALS: O2SAT 95
[2018-07-24 09:54] VITALS: BP 139/86
--- NOTE | 2018-07-24 10:57 | NURSING ---
1030 noticed new order printed for addendum to discharge instructions. reached pt via his cell phone number listed in the chart, updated/educated pt on that. offered to mail to patient, pt states to phone down to radiology and give them travis whom is his dad's fiance. nurse phoned down to radiology spoke with Travis and addendum instructions tubed to ER for her to [facility] picker.
== END 2018-07-24 10:40 | disposition home or self-care (01) | DRG 872 ==
LOC: ED 07-23 00:17 → MS2 07-23 00:51
PROVIDERS: Admitting Provider Hospitalist; Emergency Provider Emergency Medicine; Visit Provider Family Medicine
DX: A41.9 Sepsis, unspecified organism (principal); R65.20 Severe sepsis without septic shock; E87.6 Hypokalemia; E86.0 Dehydration; Z90.49 Acquired absence of other specified parts of digestive tract; F41.9 Anxiety disorder, unspecified; F32.9 Major depressive disorder, single episode, unspecified; G47.00 Insomnia, unspecified; F12.10 Cannabis abuse, uncomplicated; Z91.14 Patient's other noncompliance with medication regimen; G43.A0 Cyclical vomiting, in migraine, not intractable; K52.9 Noninfective gastroenteritis and colitis, unspecified; F17.210 Nicotine dependence, cigarettes, uncomplicated
CPT/HCPCS: 36415; 74177; 80048; 80053; 80076; 83605; 83690; 85025; 87040; 87086; 87088; 87493; 87506; 99284; 99406; J7030; J7040; A4216; J2405

== ENCOUNTER 2018-07-25 06:36 | Emergency (ER) | payer SELFPAY ==
[2018-07-23 01:37] VITALS: BMI 25.2
[2018-07-25 06:37] VITALS: BP 159/110; PULSE 83; RESP 18; TEMP 36.4; O2SAT 98; BMI 23.7
--- NOTE | 2018-07-25 06:51 | ED.DCSUM_ITS ---
- ER Visit Summary Date of Service: 07/25/18 Chief Complaint: Intractable nausea and vomiting History of Present Illness: The patient is a 33 M history of cyclic vomiting syndrome. Prior cholecystectomy. Patient states that he has had cyclic vomiting for more than a year. He was seen and treated in the ER on Wednesday and admitted to the hospital and was discharged on Wednesday. States she is been vomiting since last night. He denies any hematemesis or melena. When he was just hospitalized he had unremarkable labs and a negative CT of his abdomen and pelvis. He denies any fever. No dysuria. Similar to many other episodes that he has had. Physical Examination: Young male vital signs are stable. Afebrile. He is actively vomiting into an emesis bag. HEENT exam unremarkable. Neck nontender. Lungs clear to auscultation bilaterally. Heart regular rhythm rate about 85 no murmur. Chest wall nontender. Abdomen is soft. Nondistended. Normal bowel sounds. No signs of obstruction. No peritoneal signs. No hernias or masses. Extremities moves all 4. Neurovascular intact. No edema. Neurologically he is awake and alert with no focal motor deficits. Test Results: BMP shows Emergency Department Course and Treatment: Patient treated with a liter normal saline, Ativan IV and Phenergan. He will need repeated evaluations to see if we can get his vomiting better controlled. He will be turned over to the morning ER physician. Treatment Plan: [] Disposition: [] Impression: Acute nausea and vomiting History of cyclic vomiting syndrome This note was generated with Display[employer] dictation software. It may contain incorrect words, spelling, and punctuation that were not noted in review of the chart prior to signing ED Disposition - Plan for ED Patient: Referrals: Care Physician,No Primary [Primary Care Provider] -
[2018-07-25] MEDS: proMETHazine 25 MG/ML Syringe 12.5 MG IV (06:56)
[2018-07-25] MEDS: 0.9% Normal Saline 1,000 ML 1000 ML IV (06:56)
[2018-07-25] MEDS: LORazepam 2 MG/ML Syringe IV ×2 (06:56→08:38)
--- NOTE | 2018-07-25 07:00 | ED.DEP ---
ED Disposition - Plan for ED Patient: Disposition: Home or Assisted Living Instructions: ED Nausea Vomiting Referrals: Tj Moreno MD [NON-STAFF] - As soon as possible Additional Instructions: Fluids and rest. Nausea meds as needed. Follow-up with a local primary care physician. Return if intractable vomiting.
[2018-07-25 07:10] LABS: Anion Gap 12 (5-15); BUN 9 mg/dL (7-18); BUN/Creat Ratio 8.6 RATIO (10-20); Calcium,Total 8.9 mg/dL (8.5-10.1); Chloride 108 mmol/L (98-107); Creatinine, Serum 1.05 mg/dL (0.70-1.30); EST Glomerular Filtration Rate 88 mL/min (>60); Est Glom Filt Rate - Afr Amer 106 mL/min (>60); Glucose 111 mg/dL (74-106); Potassium 3.3 mmol/L (3.5-5.1); Sodium Level 143 mmol/L (136-145)
[2018-07-25] MEDS: Capsaicin 0.025% 1 APPLIC Tube TOPICAL (08:20)
[2018-07-25] MEDS: DiphenhydrAMINE 50 MG/ML Syringe IV (08:38)
[2018-07-25] MEDS: Metoclopramide 10 MG/2 ML Vial IV (08:38)
[2018-07-25 09:13] VITALS: BP 158/107; PULSE 58; RESP 17; O2SAT 98
== END 2018-07-25 09:15 | disposition home or self-care (01) ==
PROVIDERS: Emergency Medicine; Emergency Provider Emergency Medicine
DX: G43.A0 Cyclical vomiting, in migraine, not intractable (principal); Z90.49 Acquired absence of other specified parts of digestive tract; Z72.0 Tobacco use
CPT/HCPCS: 80048; 96361; 96374; 96375; 96376; 99283; J7030

== ENCOUNTER 2023-12-05 17:38 | Emergency (ER) | payer SELFPAY ==
[2023-12-05 17:39] VITALS: BP 142/97; PULSE 50; RESP 16; TEMP 36; O2SAT 99; BMI 20.9
--- NOTE | 2023-12-05 17:55 | ED.VIS.GI ---
HPI HPI - GI History of Present Illness Chief Complaint: ETOH Intox Detail of Chief Complaint: Nausea vomiting today. Informant: patient Abdominal Pain/Flank Pain Onset: Today Context: Gradual Onset Timing: Continuous Location: Epigastric Current Severity: Mild Maximum Severity: Mild Nausea/Vomiting/Emesis GI Symptom: Positive for Nausea and Vomiting Onset: Today Severity: Moderate Diarrhea/Melena/Hematochezia GI Symptom: Positive for Diarrhea Onset: Today Stool Quality: Positive for Loose Severity: Mild Associated Symptoms Associated Symptoms: Negative for Dysuria, Frequency, Hematuria or Urgency Narrative Narrative: 38-year-old male history of prior cholecystectomy and prior cyclic vomiting. No manage drink much and he began drinking last night and said he had more than 10 beers and at least a bottle of vodka. Send he woke up this morning around 10 AM he started with nausea and vomiting. He then developed some epigastric abdominal discomfort. Hematemesis. No melena. No documented fever. No dysuria. Denies any head injury or headache. Prior similar symptoms: Yes Recent Illness/Hospitalization: No PFSH PFSH Medical History no medical history Home Medications ?Medication ?Instructions ?Recorded ?Last Taken ?Type omeprazole 20 mg capsule,delayed 20 mg PO BID ##60 07/23/18 Unknown Rx release ondansetron 4 mg disintegrating 4 mg PO Q6H PRN nausea and 12/05/23 Unknown Rx tablet vomiting #7 tabs Allergy/AdvReac Type Severity Reaction Status Date / Time No Known Allergies Allergy Verified 12/05/23 17:43 Social History Smoking Status: Current every day smoker tobacco type: cigarettes ROS ROS ED ROS Narrative Nausea and vomiting today after drinking heavily last night believes his last drink was around 2 AM. Review of Systems ROS Unobtainable: Denies due to encephalopathy Constitutional Constitutional ED: Denies chills or fever(s) ENT ENT ED: Denies ear pain Cardiovascular Cardiovascular: Denies chest pain or palpitations Respiratory/Chest Respiratory/Chest: Denies cough or dyspnea Gastrointestinal Gastrointestinal: Reports abdominal pain, diarrhea, nausea and vomiting; Denies constipation or melena Genitourinary Genitourinary ED: Denies dysuria or hematuria Musculoskeletal Musculoskeletal: Denies arthralgias or back pain Integumentary Denies abscess or Abrasions Neurologic Neurologic: Denies headache(s) Psychiatric Psychiatric: Denies anxiety Endocrine Endocrinology: Denies polydipsia Hematologic/Lymphatic Hematologic/Lymphatic: Denies easy bleeding or easy bruising Allergic/Immunologic Allergic/Immunologic ED: Denies mouth swelling, tongue swelling or urticaria EXAM Physical Exam Narrative Exam Narrative: 38-year-old male sitting upright in bed. He appears pale and diaphoretic. Vital signs are stable. He is afebrile. He does not look septic or toxic. He does not look dehydrated. H EENT exam pupils round react light. No signs of trauma to his face or scalp. Nontender. No hematoma. Moist behaviors. Neck nontender no meningismus. Lungs clear to auscultation bilateral. Heart rate about 50 no murmur. Chest wall and ribs nontender. Abdomen soft nondistended normal bowel sounds no peritoneal signs. Minimal epigastric tenderness. No specific right upper or right lower quadrant tenderness. No hernia. No distention. Moving all 4 extremities. He is pale. He is diaphoretic. Moving all 4 extremities. There is no edema. Neurologically is awake alert. Answer questions following commands. Back nontender. Const Vital Signs: 12/05/23 17:39 12/05/23 18:38 12/05/23 19:00 Temperature 96.8 F L Temperature Source Temporal Pulse Rate 50 L 67 59 L Respiratory Rate 16 16 14 Blood Pressure 142/97 H 145/91 H 143/87 H Blood Pressure Mean 112 109 105 Pulse Ox 99 99 100 Oxygen Delivery Method Room Air 12/05/23 20:00 12/05/23 21:00 Temperature Temperature Source Pulse Rate 58 L 53 L Respiratory Rate 14 14 Blood Pressure 124/75 H 122/64 H Blood Pressure Mean 91 83 Pulse Ox 98 99 Oxygen Delivery Method Room Air Positive well nourished and well developed; Negative for obese, cachectic, contractures or unkempt General Appearance ED: well developed, NAD and pallor; Negative for unkempt, cachectic or contractures Nutritional Appearance: Negative for cachectic or obese HEENT Reports moist mucous membranes normocephalic and atraumatic; Negative for trauma or tenderness Eyes PERRL and EOMs intact bilaterally General Eye ED: Negative for pale conjunctiva or scleral icterus Neck no lymphadenopathy, supple and no JVD General: Negative for tenderness Carotids: Negative for other Lymph Lymphatic: Negative for other Resp normal respiratory effort and clear to auscultation bilaterally Effort and Inspection: Negative for respiratory distress Auscultation: Negative for rales, rhonchi, wheezes or diminished lung sounds Cardio regular rhythm, S1 normal heart sound, S2 normal heart sound and no murmurs; Negative for regular rate Rate: bradycardia Rhythm: Negative for abnormal rhythm GI non-distended and no masses; Negative for non-tender GI Narrative: Mild epigastric tenderness. Inspection: Negative for abdominal distention Auscultation: normoactive bowel sounds Palpation: soft and tender; Negative for guarding, hernia, mass, pulsatile mass or rebound tenderness present Back/Spine no CVA tenderness General Back: Negative for CVA tenderness Cervical Spine: Negative for cervical spine tenderness Thoracic Spine / Upper Back: Negative for thoracic spinal tenderness Lumbar Spine / Lower Back: Negative for lumbar spinal tenderness Extremity full ROM General Extremety ED: Negative for edema or tenderness General Extremity: Negative for edema Neuro CN's II-XII intact bilaterally and moves all extremities Sensorium / Orientation: alert, oriented to person, oriented to place and oriented to time; Negative for orientation impaired, confused, lethargic or stuporous Motor Exam: strength 5/5 throughout Psych mental status grossly normal and thought process normal Appearance: Negative for unkempt Attitude: No agitated Mood & Affect: Negative for depressed, anxious or tearful Skin no wounds General Skin Exam: pallor; Negative for jaundice Lesions: no lesions Rashes: no rashes Trauma: Negative for abrasion Nails: Negative for discolored MDM MDM MDM Narrative Medical decision making narrative: 38-year-old male nausea vomiting today minimal loose stools. Suspect secondary to binge drinking last night and early this morning. Will be treated with IV fluids. Zofran for nausea. P.o. fluid challenge. Screening labs are being obtained. Alcoholic gastritis and pancreatitis to be in the differential. He also has a history of cyclic vomiting. Repeat exam at 6:27 PM patient improving. Nausea improved. Is trying p.o. fluids. I went over his test results fracture unremarkable. Repeat exam the patient at 7:10 PM. He still states he is nauseated thrown up recently. I will be given another dose of Zofran and IV Ativan. Repeat exam I had 8:30 PM he still nauseated. He will be given another dose of Zofran and reevaluated. Repeat exam at 9:45 PM. Patient started to feel much better. He has had multiple dosages of Zofran. He is on IV fluids. I did offer him admission for intractable nausea and vomiting. He said he is feeling better and he wants to be discharged home and does not want to be admitted. He has Zofran at home. He knows to return if worse. He knows not to drink alcohol for several days. History & Record Review Discussion w/independent historian: Patient Additional record(s) reviewed:: Prior inpatient record, Prior outpatient record, Prior ED visit and Prior labs Lab Data Attestation: I reviewed the patient's lab results. Lab results narrative: CBC shows a white count 13.5. H&H is 16.5 and 48. Platelets 313. Chemistries show gap of 7. Normal BUN 13 creatinine 1. Glucose 128. Liver enzymes unremarkable. Lipase 23. Alcohol less than 3. Labs: Laboratory Results - last 24 hr 12/05/23 17:55 WBC 13.5 H RBC 5.41 Hgb 16.5 Hct 48.9 MCV 90.4 MCH 30.5 MCHC 33.7 RDW Std Deviation 46.2 H RDW Coeff of Neda 13.8 Plt Count 303 MPV 9.4 Immature Gran % (Auto) 0.400 Neut % (Auto) 76.7 H Lymph % (Auto) 16.1 L Nobles % (Auto) 5.9 Eos % (Auto) 0.2 Baso % (Auto) 0.7 Absolute Neuts (auto) 10.3 H Absolute Lymphs (auto) 2.17 Nucleated RBC % 0 Sodium 140 Potassium 3.8 Chloride 105 Carbon Dioxide 28.0 Anion Gap 7 BUN 13 Creatinine 1.00 Estim Creat Clear Calc 104.17 Est GFR (MDRD) Af Amer 109 Est GFR (MDRD) Non-Af 90 BUN/Creatinine Ratio 13.0 Glucose 128 H Calcium 10.4 H Total Bilirubin 1.10 H AST 10 L ALT 19 Alkaline Phosphatase 80 Total Protein 8.5 H Albumin 5.1 H Globulin 3.4 Albumin/Globulin Ratio 1.5 Lipase 23 Ethyl Alcohol < 3.0 Discharge Plan Triage Chief Complaint: ETOH Intox ED Provider: Behzad Leroy Dx/Rx/DC Orders Clinical Impression: Nausea & vomiting, Drinking binge, Abdominal pain, epigastric Instructions: ED Vomiting (Adult) Prescriptions: New ondansetron 4 mg tablet,disintegrating 4 mg PO Q6H PRN (Reason: nausea and vomiting) Qty: 7 0RF No Action omeprazole 20 MG capsule 20 mg PO BID Qty: 60 0RF Primary Care Provider: Care Physician,No Primary Referrals: Lino Urrutia DO [Non-Staff] - 3-5 Days if not improving Care Physician,No Primary [Primary Care Provider] - Activity Restrictions/Additional Instructions: Zofran as needed for nausea. You may swallow or let dissolve under your tongue. Plenty of fluids and rest. Slowly increase your diet as tolerated. No alcohol consumption for the next 48 hours. Follow-up with a local doctor if not improving or return if worse. Print Language: Paraguayan Disposition Disposition: Home, Self Care
[2023-12-05] MEDS: Ondansetron 4 MG/2 ML Vial IV ×3 (18:01→20:48)
[2023-12-05] MEDS: 0.9% Normal Saline (1000mL) 1,000 ML 999 ML IV (18:01)
[2023-12-05 18:04] LABS: Absolute Lymphocyte Count 2.17 X10^3/uL (0.83-4.51); Absolute Neutrophil Count 10.3 X10^3/uL (2.0-7.7); Basophil# 0.09 X10^3/uL; Basophil% 0.7 % (0-1); Eosinophil# 0.03 X10^3/uL; Eosinophils% 0.2 % (0-5); Hematocrit 48.9 % (40-54); Hemoglobin 16.5 g/dL (13.0-16.5); Lymphocyte # 2.17 X10^3/ul (0.83-4.51); Lymphocyte % 16.1 % (19-41); Mean Corp Hgb Conc 33.7 g/dL (32-36); Mean Corpuscular Hgb 30.5 pg (27.0-32.0); Mean Corpuscular Volume 90.4 fL (80-94); Mean Platelet Vol. 9.4 fl (6.2-12.0); Monocyte% 5.9 % (0-10); NRBC Flagged by Analyzer 0 % (0-5); Neutrophil % 76.7 % (47-70); Platelet Count 303 K/mm3 (150-450); RBC Distribution Width CV 13.8 % (11.6-14.6); RBC Distribution Width SD 46.2 fl (35.1-43.9); Red Blood Count 5.41 M/mm3 (4.6-6.2); White Blood Count 13.5 K/mm3 (4.4-11.0)
[2023-12-05 18:21] LABS: Alcohol, Blood (Medical)-Serum < 3.0 mg/dL
[2023-12-05 18:26] LABS: ALB/GLOB Ratio 1.5 RATIO (0.9-2.4); AST(SGOT) 10 U/L (15-37); Alanine Aminotransfer ALT/SGPT 19 U/L (16-61); Albumin, Serum 5.1 g/dL (3.2-5.0); Alkaline Phosphatase 80 U/L (45-117); Anion Gap 7 (5-15); BUN 13 mg/dL (7-18); Calcium,Total 10.4 mg/dL (8.5-10.1); Chloride 105 mmol/L (98-107); EST Glomerular Filtration Rate 90 mL/min (>60); Est Glom Filt Rate - Afr Amer 109 mL/min (>60); Estimated Creatinine Clearance 104.17 ml/min; Globulin 3.4 g/dL (2.2-4.2); Glucose 128 mg/dL (74-106); Lipase 23 U/L (13-75); Potassium 3.8 mmol/L (3.5-5.1); Protein, Total 8.5 g/dL (6.4-8.2); Sodium Level 140 mmol/L (136-145)
[2023-12-05 18:38] VITALS: BP 145/91; PULSE 67; RESP 16; O2SAT 99
[2023-12-05 19:00] VITALS: BP 143/87; PULSE 59; RESP 14; O2SAT 100
[2023-12-05] MEDS: LORazepam 2 MG/ML Syringe 1 MG IV (19:23)
[2023-12-05 20:00] VITALS: BP 124/75; PULSE 58; RESP 14; O2SAT 98
[2023-12-05 21:00] VITALS: BP 122/64; PULSE 53; RESP 14; O2SAT 99
[2023-12-05 22:06] VITALS: BP 124/74; PULSE 52; RESP 14; TEMP 36; O2SAT 99
== END 2023-12-05 22:07 | disposition home or self-care (01) ==
LOC: ED 18:45
PROVIDERS: Emergency Provider Emergency Medicine; Visit Provider Emergency Medicine
DX: R10.13 Epigastric pain (principal); F17.210 Nicotine dependence, cigarettes, uncomplicated; R11.2 Nausea with vomiting, unspecified; Z90.49 Acquired absence of other specified parts of digestive tract; F10.10 Alcohol abuse, uncomplicated
CPT/HCPCS: 80053; 80320; 83690; 85025; 96361; 96374; 96375; 96376; 99283; J7030; A4216; G0480; J2405

== ENCOUNTER 2023-12-06 08:33 | Emergency (ER) | payer OTHER, SELFPAY ==
[2023-12-06 08:34] VITALS: BP 147/85; PULSE 59; RESP 16; TEMP 36.6; O2SAT 99; BMI 19.6
[2023-12-06] MEDS: LORazepam 2 MG/ML Syringe 1 MG IV (08:59)
[2023-12-06] MEDS: 0.9% Normal Saline (1000mL) 1,000 ML 999 ML IV (08:59)
[2023-12-06] MEDS: Ondansetron 4 MG/2 ML Vial IV (08:59)
[2023-12-06] MEDS: Famotidine 200 MG/20 ML MDV 20 MG in 0.9% Normal Saline (Pres. free 8 ML 300 MG IV (09:04)
--- NOTE | 2023-12-06 09:09 | ED.VIS.GI ---
HPI HPI - GI History of Present Illness Chief Complaint: Nausea/Vomiting Informant: patient Abdominal Pain/Flank Pain Onset: Days Context: Gradual Onset Timing: Continuous Quality: Burning Location: Epigastric Current Severity: Mild Maximum Severity: Mild Nausea/Vomiting/Emesis GI Symptom: Positive for Nausea and Vomiting Onset: Today and Yesterday Severity: Moderate Diarrhea/Melena/Hematochezia GI Symptom: Negative for Diarrhea, Melena or Hematochezia Associated Symptoms Associated Symptoms: Negative for Dysuria, Frequency, Hematuria or Urgency Narrative Narrative: 38-year-old male seen yesterday with a history of cyclic vomiting and he binge drink on Wednesday night early Wednesday morning quit drinking at 2 AM on Wednesday morning and was in the emergency department yesterday for nausea and vomiting. Labs are unremarkable. He did not need any imaging. He was actually offered admission for intractable vomiting which he did not want to be admitted so he was discharged home. And he said he has been throwing up again. Denies any significant pain at this time. Denies any fever. Prior similar symptoms: Yes Recent Illness/Hospitalization: No PFSH [facility] Home Medications ?Medication ?Instructions ?Recorded ?Last Taken ?Type omeprazole 20 mg capsule,delayed 20 mg PO BID ##60 07/23/18 Unknown Rx release ondansetron 4 mg disintegrating 4 mg PO Q6H PRN nausea and 12/05/23 Unknown Rx tablet vomiting #7 tabs ondansetron 4 mg disintegrating 4 mg PO Q6H PRN nausea and 12/06/23 Unknown Rx tablet vomiting #10 tabs Allergy/AdvReac Type Severity Reaction Status Date / Time No Known Allergies Allergy Verified 12/06/23 08:34 Social History Smoking Status: Current every day smoker tobacco type: cigarettes ROS ROS ED ROS Narrative Nausea and vomiting. Epigastric burning. Review of Systems ROS Unobtainable: Denies due to encephalopathy Constitutional Constitutional ED: Denies chills or fever(s) ENT ENT ED: Denies ear pain Cardiovascular Cardiovascular: Denies chest pain Respiratory/Chest Respiratory/Chest: Denies cough or dyspnea Gastrointestinal Gastrointestinal: Reports abdominal pain, nausea and vomiting; Denies constipation, diarrhea or melena Genitourinary Genitourinary ED: Denies dysuria or hematuria Musculoskeletal Musculoskeletal: Denies arthralgias Integumentary Denies abscess Neurologic Neurologic: Denies headache(s) Psychiatric Psychiatric: Denies anxiety Endocrine Endocrinology: Denies polydipsia Hematologic/Lymphatic Hematologic/Lymphatic: Denies easy bleeding Allergic/Immunologic Allergic/Immunologic ED: Denies mouth swelling, tongue swelling or urticaria EXAM Physical Exam Narrative Exam Narrative: Well-appearing 38-year-old male vital signs stable afebrile. Patient actually looks much better than he did yesterday when I was caring for him. Currently is not diaphoretic. He is in no distress. He sitting upright in bed. Currently is not actively vomiting or retching. H EENT exam unremarkable. Mytrex members. Neck nontender. Lungs clear to auscultation bilaterally. Heart regular rhythm rate about 60 no murmur. Chest wall and ribs nontender. Abdomen soft nontender tender. Nondistended normal bowel sounds no peritoneal signs. Moving all 4 extremities. Nontender no edema. Neurologically is awake and alert with no focal motor deficits. Const Vital Signs: 12/06/23 08:34 Temperature 97.8 F Temperature Source Temporal Pulse Rate 59 L Respiratory Rate 16 Blood Pressure 147/85 H Blood Pressure Mean 105 Pulse Ox 99 Oxygen Delivery Method Room Air Positive well nourished and well developed; Negative for obese, cachectic, contractures or unkempt General Appearance ED: well developed and NAD; Negative for unkempt, cachectic, contractures or pallor Nutritional Appearance: Negative for cachectic or obese HEENT Reports moist mucous membranes normocephalic and atraumatic; Negative for trauma or tenderness Eyes PERRL and EOMs intact bilaterally General Eye ED: Negative for pale conjunctiva or scleral icterus Neck no lymphadenopathy, supple and no JVD General: Negative for tenderness Carotids: Negative for other Lymph Lymphatic: Negative for other Resp normal respiratory effort and clear to auscultation bilaterally Effort and Inspection: Negative for respiratory distress Auscultation: Negative for rales, rhonchi, wheezes or diminished lung sounds Cardio regular rate, regular rhythm, S1 normal heart sound, S2 normal heart sound and no murmurs Rate: Negative for bradycardia or tachycardic Rhythm: Negative for abnormal rhythm GI non-tender, non-distended and no masses Inspection: Negative for abdominal distention Auscultation: normoactive bowel sounds Palpation: soft; Negative for tender, guarding, rigid, hernia, mass, pulsatile mass or rebound tenderness present Back/Spine no CVA tenderness General Back: Negative for CVA tenderness Cervical Spine: Negative for cervical spine tenderness Thoracic Spine / Upper Back: Negative for thoracic spinal tenderness Lumbar Spine / Lower Back: Negative for lumbar spinal tenderness Extremity full ROM General Extremety ED: Negative for edema or tenderness General Extremity: Negative for edema Neuro CN's II-XII intact bilaterally and moves all extremities Sensorium / Orientation: alert, oriented to person, oriented to place and oriented to time; Negative for orientation impaired, confused or lethargic Motor Exam: strength 5/5 throughout Psych mental status grossly normal and thought process normal Appearance: Negative for unkempt Attitude: No agitated Mood & Affect: Negative for depressed, anxious or tearful Skin no wounds General Skin Exam: Negative for jaundice or pallor Lesions: no lesions Rashes: no rashes Trauma: Negative for abrasion Nails: Negative for discolored MDM MDM MDM Narrative Medical decision making narrative: 38-year-old male history of cyclic vomiting with nausea and vomiting. Clinically does not look significantly dehydrated. He was seen and evaluated thoroughly yesterday's labs are basically unremarkable yesterday. He will be given Ativan IV with nausea medication IV fluids and reassessed. He looks much better today than he did yesterday. Repeat exam patient doing well at 10:50 AM. He has had no vomiting entire time emergency department. He was given a liter of fluid. Zofran. To be discharged home. Written a prescription for Zofran. Outpatient follow-up. History & Record Review Discussion w/independent historian: Patient Additional record(s) reviewed:: Prior inpatient record, Prior outpatient record, Prior ED visit and Prior labs Lab Data Attestation: I reviewed the patient's lab results. Lab results narrative: BMP shows no acute abnormality. Gap 12. BUN 21 creatinine 1.0. Glucose 146. Labs: Laboratory Results - last 24 hr 12/06/23 09:00 Sodium 137 Potassium 3.5 Chloride 103 Carbon Dioxide 22.0 Anion Gap 12 BUN 21 H Creatinine 1.09 Estim Creat Clear Calc 89.56 Est GFR (MDRD) Af Amer 98 Est GFR (MDRD) Non-Af 81 BUN/Creatinine Ratio 19.3 Glucose 146 H Calcium 10.2 H Discharge Plan Triage Chief Complaint: Nausea/Vomiting ED Provider: Behzad Leroy Dx/Rx/DC Orders Clinical Impression: Nausea & vomiting, Cyclic vomiting syndrome Instructions: ED Vomiting (Adult) Prescriptions: New ondansetron 4 mg tablet,disintegrating 4 mg PO Q6H PRN (Reason: nausea and vomiting) Qty: 10 0RF No Action omeprazole 20 MG capsule 20 mg PO BID Qty: 60 0RF ondansetron 4 mg tablet,disintegrating 4 mg PO Q6H PRN (Reason: nausea and vomiting) Qty: 7 0RF Primary Care Provider: Care Physician,No Primary Referrals: Maryanne Paz MD [Med Staff - Flotation Operator] - 3-5 Days if not improving Care Physician,No Primary [Primary Care Provider] - Activity Restrictions/Additional Instructions: Plenty of fluids and rest. Slowly increase your diet as tolerated. Zofran as needed for nausea. Follow-up if not improving. Print Language: Romanian Disposition Disposition: Home, Self Care
[2023-12-06 09:52] LABS: Anion Gap 12 (5-15); BUN 21 mg/dL (7-18); BUN/Creat Ratio 19.3 RATIO (10-20); Calcium,Total 10.2 mg/dL (8.5-10.1); Chloride 103 mmol/L (98-107); Creatinine, Serum 1.09 mg/dL (0.70-1.30); EST Glomerular Filtration Rate 81 mL/min (>60); Est Glom Filt Rate - Afr Amer 98 mL/min (>60); Estimated Creatinine Clearance 89.56 ml/min; Glucose 146 mg/dL (74-106); Potassium 3.5 mmol/L (3.5-5.1); Sodium Level 137 mmol/L (136-145)
[2023-12-06 10:34] VITALS: BP 115/69; PULSE 55; RESP 17; O2SAT 97
== END 2023-12-06 11:03 | disposition home or self-care (01) ==
PROVIDERS: Emergency Provider Emergency Medicine; Visit Provider Emergency Medicine
DX: R11.15 Cyclical vomiting syndrome unrelated to migraine (principal); R11.2 Nausea with vomiting, unspecified; F17.210 Nicotine dependence, cigarettes, uncomplicated
CPT/HCPCS: 80048; 96361; 96374; 96375; 99282; J7030; A4216; J2405; J3490

== ENCOUNTER 2023-12-07 07:09 | Observation (INO) | payer MEDICAID, SELFPAY ==
[2023-12-07] VITALS (8 sets, daily range): BP systolic 93–142; BP diastolic 55–100; PULSE 51–98; RESP 14–18; TEMP 36.3–37.3; O2SAT 97–100; BMI 20.7; BMI 21.0
--- NOTE | 2023-12-07 08:00 | ED.VIS.GI ---
HPI HPI - GI History of Present Illness Chief Complaint: Nausea/Vomiting Informant: patient Nausea/Vomiting/Emesis GI Symptom: Positive for Nausea and Vomiting Onset: Days Severity: Moderate Diarrhea/Melena/Hematochezia GI Symptom: Negative for Diarrhea, Melena or Hematochezia Associated Symptoms Associated Symptoms: Negative for Dysuria, Frequency, Hematuria or Urgency Narrative Narrative: 38-year-old male history of cyclic vomiting syndrome. He did binge drink several days ago him in the emergency department the next day for nausea and vomiting. Workup at that time was negative. He was offered admission and deferred at that time. He came back yesterday clinically looks much better labs are unremarkable he felt better and was able to hold down fluids and was discharged home. Today says he is vomiting again. Denies fever. Denies melena or hematemesis. He has had some epigastric abdominal pain and the workup has been negative for that. Prior similar symptoms: Yes Recent Illness/Hospitalization: No PFSH PFSH Home Medications ?Medication ?Instructions ?Recorded ?Last Taken ?Type omeprazole 20 mg capsule,delayed 20 mg PO BID ##60 07/23/18 Unknown Rx release ondansetron 4 mg disintegrating 4 mg PO Q6H PRN nausea and 12/05/23 Unknown Rx tablet vomiting #7 tabs ondansetron 4 mg disintegrating 4 mg PO Q6H PRN nausea and 12/06/23 Unknown Rx tablet vomiting #10 tabs Allergy/AdvReac Type Severity Reaction Status Date / Time No Known Allergies Allergy Verified 12/07/23 09:24 Social History Smoking Status: Current every day smoker tobacco type: cigarettes ROS ROS ED ROS Narrative Nausea and vomiting. He has had epigastric abdominal pain that is getting better. Review of Systems ROS Unobtainable: Denies due to encephalopathy Constitutional Constitutional ED: Denies chills or fever(s) ENT ENT ED: Denies ear pain Cardiovascular Cardiovascular: Denies chest pain Respiratory/Chest Respiratory/Chest: Denies cough or dyspnea Gastrointestinal Gastrointestinal: Reports abdominal pain, nausea and vomiting; Denies constipation, diarrhea or melena Genitourinary Genitourinary ED: Denies dysuria or hematuria Musculoskeletal Musculoskeletal: Denies arthralgias or back pain Integumentary Denies abscess or Abrasions Neurologic Neurologic: Denies headache(s) Psychiatric Psychiatric: Reports anxiety; Denies depression Endocrine Endocrinology: Denies polydipsia Hematologic/Lymphatic Hematologic/Lymphatic: Denies easy bleeding Allergic/Immunologic Allergic/Immunologic ED: Denies mouth swelling or tongue swelling EXAM Physical Exam Narrative Exam Narrative: 38-year-old male no acute distress vital signs stable afebrile. As I enter the room he is walking around the room. He does have a emesis bag half full of green emesis. No blood. But he is in no acute distress. No one else is present in the room. H EENT exam mild dry mucous membranes otherwise unremarkable. Pupils round react light. Neck nontender. Lungs clear. Heart regular rhythm rate about 70 no murmur. Chest wall and ribs nontender. Abdomen is soft nondistended normal bowel sounds no peritoneal signs. Really no significant abdominal tenderness. Right upper and right lower quadrant unremarkable. No hernia. No mass. No distention or obstruction. He is moving all 4 extremities. They are nontender no edema. Back nontender. Skin is unremarkable. Neurologically is awake and alert with no focal motor deficits. Const Vital Signs: 12/07/23 07:09 12/07/23 09:09 Temperature 98 F Temperature Source Temporal Pulse Rate 71 98 Respiratory Rate 14 16 Blood Pressure 142/100 H 134/89 H Blood Pressure Mean 114 104 Pulse Ox 98 98 Oxygen Delivery Method Room Air Room Air Positive well nourished and well developed; Negative for obese, cachectic, contractures or unkempt General Appearance ED: well developed and NAD; Negative for unkempt, cachectic, contractures or pallor Nutritional Appearance: Negative for cachectic or obese HEENT Reports dry mucous membranes; Denies moist mucous membranes normocephalic and atraumatic; Negative for trauma or tenderness Mouth ED: Yes dry mucous membranes Mouth: dry mucous membranes Eyes PERRL and EOMs intact bilaterally General Eye ED: Negative for pale conjunctiva or scleral icterus Neck no lymphadenopathy, supple and no JVD General: Negative for tenderness Carotids: Negative for other Lymph Lymphatic: Negative for other Resp normal respiratory effort and clear to auscultation bilaterally Effort and Inspection: Negative for respiratory distress Auscultation: Negative for rales, rhonchi, wheezes, diminished lung sounds or other Cardio regular rate, regular rhythm, S1 normal heart sound, S2 normal heart sound and no murmurs Rate: Negative for bradycardia or tachycardic Rhythm: Negative for abnormal rhythm GI non-tender, non-distended and no masses Inspection: Negative for abdominal distention Auscultation: normoactive bowel sounds Palpation: soft; Negative for tender, guarding, mass, pulsatile mass or rebound tenderness present Back/Spine no CVA tenderness General Back: Negative for CVA tenderness Cervical Spine: Negative for cervical spine tenderness Thoracic Spine / Upper Back: Negative for thoracic spinal tenderness Lumbar Spine / Lower Back: Negative for lumbar spinal tenderness Coccyx: Negative for other Extremity full ROM General Extremety ED: Negative for edema or tenderness General Extremity: Negative for edema Neuro CN's II-XII intact bilaterally and moves all extremities Sensorium / Orientation: alert, oriented to person and oriented to place; Negative for oriented to time, orientation impaired, confused, lethargic or stuporous Motor Exam: strength 5/5 throughout; Negative for general weakness or strength abnormal Psych mental status grossly normal and thought process normal Appearance: Negative for unkempt Attitude: No agitated Mood & Affect: Negative for depressed, anxious or tearful Skin no wounds General Skin Exam: Negative for jaundice or pallor Lesions: no lesions Rashes: no rashes Trauma: Negative for abrasion Nails: Negative for discolored MDM MDM MDM Narrative Medical decision making narrative: 38-year-old male with intractable nausea vomiting with a history of cyclic vomiting. Will treat with IV fluids, Ativan and Reglan and Protonix. Will reassess screening labs. They have been unremarkable last several days. Repeat exam the patient continues to retch and have vomiting. This is his third ER evaluation 3 days in a row. I offered him admission on the first day. When she refused. Yesterday he was actually looking much better. I spoke to the hospitalist will admit him today. I think this is all secondary to cyclic vomiting and marijuana use. History & Record Review Discussion w/independent historian: Patient Additional record(s) reviewed:: Prior inpatient record, Prior outpatient record, Prior ED visit and Prior labs Lab Data Attestation: I reviewed the patient's lab results. Lab results narrative: CBC unremarkable. White count 9. H&H of 15 and 46. Platelets 250. Electrolytes unremarkable normal gap of 8. BUN 23 creatinine 1.1. Glucose 152. Lipase is normal at 29. Labs: Laboratory Results - last 24 hr 12/07/23 08:04 WBC 9.8 RBC 5.19 Hgb 15.9 Hct 46.5 MCV 89.6 MCH 30.6 MCHC 34.2 RDW Std Deviation 45.4 H RDW Coeff of Neda 13.7 Plt Count 250 MPV 9.8 Immature Gran % (Auto) 0.500 Neut % (Auto) 73.7 H Lymph % (Auto) 17.2 L [place] % (Auto) 8.0 Eos % (Auto) 0.1 Baso % (Auto) 0.5 Absolute Neuts (auto) 7.2 Absolute Lymphs (auto) 1.69 Nucleated RBC % 0 Sodium 140 Potassium 3.6 Chloride 107 Carbon Dioxide 25.0 Anion Gap 8 BUN 23 H Creatinine 1.12 Estim Creat Clear Calc 92.21 Est GFR (MDRD) Af Amer 95 Est GFR (MDRD) Non-Af 79 BUN/Creatinine Ratio 20.5 H Glucose 152 H Calcium 9.7 Lipase 29 Discharge Plan Triage Chief Complaint: Nausea/Vomiting ED Provider: Behzad Leroy Dx/Rx/DC Orders Clinical Impression: Intractable vomiting, Cyclical vomiting, Cannabis abuse Prescriptions: No Action omeprazole 20 MG capsule 20 mg PO BID Qty: 60 0RF ondansetron 4 mg tablet,disintegrating 4 mg PO Q6H PRN (Reason: nausea and vomiting) Qty: 10 0RF ondansetron 4 mg tablet,disintegrating 4 mg PO Q6H PRN (Reason: nausea and vomiting) Qty: 7 0RF Primary Care Provider: Care Physician,No Primary Referrals: Care Physician,No Primary [Primary Care Provider] - Print Language: Niuean Disposition Disposition: Acute Care [facility]
[2023-12-07] MEDS: Metoclopramide 10 MG/2 ML Vial 5 MG IV (08:07)
[2023-12-07] MEDS: 0.9% Normal Saline (1000mL) 1,000 ML 1000 ML IV (08:07)
[2023-12-07] MEDS: LORazepam 2 MG/ML Syringe 1 MG IV (08:09)
[2023-12-07] MEDS: Pantoprazole Sodium 40 MG in 0.9% Normal Saline (100mL MB+) 100 ML 330 MG IV ×2 (08:10→21:46)
[2023-12-07 08:32] LABS: Absolute Lymphocyte Count 1.69 X10^3/uL (0.83-4.51); Absolute Neutrophil Count 7.2 X10^3/uL (2.0-7.7); Anion Gap 8 (5-15); BUN 23 mg/dL (7-18); BUN/Creat Ratio 20.5 RATIO (10-20); Basophil# 0.05 X10^3/uL; Basophil% 0.5 % (0-1); Calcium,Total 9.7 mg/dL (8.5-10.1); Chloride 107 mmol/L (98-107); Creatinine, Serum 1.12 mg/dL (0.70-1.30); EST Glomerular Filtration Rate 79 mL/min (>60); Eosinophil# 0.01 X10^3/uL; Eosinophils% 0.1 % (0-5); Est Glom Filt Rate - Afr Amer 95 mL/min (>60); Estimated Creatinine Clearance 92.21 ml/min; Glucose 152 mg/dL (74-106); Hematocrit 46.5 % (40-54); Hemoglobin 15.9 g/dL (13.0-16.5); Lipase 29 U/L (13-75); Lymphocyte # 1.69 X10^3/ul (0.83-4.51); Lymphocyte % 17.2 % (19-41); Mean Corp Hgb Conc 34.2 g/dL (32-36); Mean Corpuscular Hgb 30.6 pg (27.0-32.0); Mean Corpuscular Volume 89.6 fL (80-94); Mean Platelet Vol. 9.8 fl (6.2-12.0); Monocyte# 0.79 X10^3/uL; NRBC Flagged by Analyzer 0 % (0-5); Neutrophil # 7.23 X10^3/uL (2.7-7.7); Neutrophil % 73.7 % (47-70); Platelet Count 250 K/mm3 (150-450); Potassium 3.6 mmol/L (3.5-5.1); RBC Distribution Width CV 13.7 % (11.6-14.6); RBC Distribution Width SD 45.4 fl (35.1-43.9); Red Blood Count 5.19 M/mm3 (4.6-6.2); Sodium Level 140 mmol/L (136-145); White Blood Count 9.8 K/mm3 (4.4-11.0)
--- NOTE | 2023-12-07 09:29 | NURSING ---
ICU OBS ANGIE INTRACTABLE VOMITING, HX OF CYCLIC VOMITING, MARIJUANA USE
[2023-12-07] MEDS: Ondansetron 4 MG/2 ML Vial IV ×2 (09:32→12:31)
--- NOTE | 2023-12-07 09:33 | CT_ITS ---
STUDY: CT ABDOMEN AND PELVIS WITH CONTRAST REASON FOR EXAM: Male, 38 years old. Nausea/vomiting RADIATION DOSAGE (If Supplied By Facility): CTDIvol = ( 11.74 ) mGy, DLP = ( 558.95 ) mGycm TECHNIQUE: Transaxial images were obtained from the dome of the diaphragm to the symphysis pubis with oral contrast. Oral and amp; IV Gastrografin and amp; 100mL Isovue-370 was administered. Sagittal and coronal images were reconstructed. Individualized dose optimization techniques were used for this CT. COMPARISON: Comparison is made with prior study dated July 22, 2018. FINDINGS: The visualized lung bases are unremarkable. The visualized portions of the heart are within normal limits. Normal liver. The patient is status post cholecystectomy. Normal spleen. Normal pancreas. Normal bilateral adrenal glands. Normal right kidney. Normal left kidney. Normal visualized stomach. Normal small intestine. Normal colon. The appendix is visualized and appears normal. Normal abdominal aorta. Normal inferior vena cava. Normal retroperitoneum. Normal urinary bladder. Normal abdominal wall. There is straightening of the normal lumbar lordosis. CT/Abdomen/Pelvis WITH Contrast IMPRESSION: No acute abnormality is seen. Electronically Signed: Arsh Ross MD at 14:27 EDT ,
[2023-12-07] MEDS: Famotidine 200 MG/20 ML MDV 20 MG in 0.9% Normal Saline (Pres. free 8 ML 300 MG IV (09:48)
[2023-12-07] MEDS: DiphenhydrAMINE 25 MG, ChlorproMAZINE IM 25 MG in 0.9% Normal Saline (100mL Bag) 100 ML 203 MG IV (09:56)
--- NOTE | 2023-12-07 10:56 | HP.PCM.HOS_ITS ---
HPI - General General Date of Admission: 12/07/23 Date of Service: 12/07/23 Chief Complaint: Intractable nausea and vomiting HPI Narrative JAD DUENAS, is a 38 M who presented to the emergency department at [facility] on 12/07/2023 with persistent intermittent intractable nausea and vomiting. He has a history of cyclic vomiting syndrome and has ongoing use of marijuana. He has been in the emergency department on the , and now on the . He was offered admission for intractable nausea and vomiting previously but declined. He had an episode of binge drinking over the weekend and since that point in time he had intermittent nausea and vomiting. Previous workups were unremarkable however no imaging was obtained at that time. Yesterday the patient looked better clinically and was able to hold down fluids and was discharged home with medication to assist with his nausea however he reported he started vomiting again this morning. He denies any hematemesis or melena and has had no fever or chills. He denies any diarrhea. He had some intermittent epigastric pain and workup previously for that has been negative. He has a previous cholecystectomy. Vital signs on presentation showed temperature of 98, heart rate 71, respiratory was 14, blood pressure was 142/100 and pulse ox was 98% room air. CBC was unremarkable. Chemistry panel showed mild elevated BUN at 23 and a serum creatinine of 1.12 consistent with mild dehydration. His serum glucose was elevated at 152 and has been persistently elevated therefore we obtained a hemoglobin A1c which was found to be 5.2. His lipase was normal at 29. EtOH level was less than 3 and toxicology is pending. [facility] Medical History Substance abuse GERD (gastroesophageal reflux disease) Smoker Home Medications ?Medication ?Instructions ?Recorded ?Last Taken ?Type ondansetron 4 mg disintegrating 4 mg PO Q6H PRN nausea and 12/05/23 Unknown Rx tablet vomiting #7 tabs Lactobacillus acidophilus 10 100 mmu cells PO DAILY 12/07/23 Unknown History billion cell capsule ([employer]) omeprazole 20 mg capsule,delayed 20 mg PO DAILY 12/07/23 Unknown History release Allergy/AdvReac Type Severity Reaction Status Date / Time No Known Allergies Allergy Verified 12/07/23 09:24 Social History Smoking Status: Current every day smoker tobacco type: cigarettes ROS Constitutional Constitutional: Reports anorexia; Denies change in weight, chills, fatigue, fever(s), malaise, night sweats, weakness or other Eyes Eyes: Denies blurry vision, change in eye color, change in vision, discharge from eye(s), double vision, erythema, eye pain, loss of vision or other ENT HEENT: Denies abnormal hearing, dysphagia, ear pain, epistaxis, headache(s), hearing loss, nasal congestion, nasal discharge, post nasal drip, sinus pressure, sore throat or other Cardiovascular Cardiovascular: Denies chest pain, claudication, dyspnea on exertion, edema, lightheadedness, orthopnea, palpitations, paroxysmal nocturnal dyspnea, rapid heart rate, syncope or other Respiratory/Chest Respiratory/Chest: Denies cough, dyspnea, excessive phlegm production, hemoptysis, productive cough, shortness of breath at rest, shortness of breath with exertion, wheezing or other Gastrointestinal Gastrointestinal: Reports abdominal pain, nausea and vomiting; Denies coffee ground emesis, constipation, diarrhea, dyspepsia, hematemesis, hematochezia, loose stools, melena or other Genitourinary Genitourinary: Denies burning urination, difficulty urinating, dysuria, hematuria, nocturia, urinary frequency, urinary hesitancy, urinary incontinence, urinary urgency or other Musculoskeletal Musculoskeletal: Denies arthralgias, back pain, joint pain, joint stiffness, joint swelling, myalgias, neck pain or other Neurologic Neurologic: Denies abnormal gait, abnormal speech, confusion, disequilibrium, dizziness, focal weakness, headache(s), numbness, paresthesias, seizure-like activity, seizures, syncope, tingling, tremor(s) or other Psychiatric Psychiatric: Reports anxiety and depression; Denies homicidal ideation, suicidal ideation or other Endocrine Endocrinology: Denies change in body appearance, cold intolerance, excessive sweating, heat intolerance, polydipsia, polyuria or other Hematologic/Lymphatic Hematologic/Lymphatic: Denies anemia, easy bleeding, easy bruising, lymphadenopathy or other Allergic/Immunologic Allergic/Immunologic: Denies rhinitis, hives, eczemia, asthma or other Vital Signs Vital Signs Vital Signs: 12/07/23 07:09 12/07/23 09:09 12/07/23 09:25 Temperature 98 F 97.7 F L Temperature Source Temporal Temporal Pulse Rate 71 98 51 L Respiratory Rate 14 16 16 Blood Pressure 142/100 H 134/89 H 130/75 H Blood Pressure Mean 114 104 93 Pulse Ox 98 98 99 Oxygen Delivery Method Room Air Room Air Room Air 12/07/23 09:41 Temperature 97.7 F L Temperature Source Pulse Rate 51 L Respiratory Rate 16 Blood Pressure 130/75 H Blood Pressure Mean 93 Pulse Ox 99 Oxygen Delivery Method Weight Weight: 71.5 kg Body Mass Index (BMI) 20.7 Physical Exam Const alert, oriented x3, no apparent distress and average body habitus; Negative for healthy appearing or well nourished General Appearance: cooperative HEENT normocephalic, head/scalp atraumatic and hearing grossly normal bilaterally HEENT Narrative: Dry mucous membranes, dentition good Resp normal respiratory effort, no retractions, no use of accessory muscles and clear to auscultation bilaterally Auscultation: Negative for rales, rhonchi or wheezes Cardio regular rate, regular rhythm, S1 normal heart sound, S2 normal heart sound, no murmurs, no rub, no gallops and no clicks GI normal to inspection, nondistended, normoactive bowel sounds and soft to palpation GI Narrative: mild epigastric tenderness Extremity no clubbing, cyanosis or edema Neuro oriented x3, CN's II-XII intact bilaterally, moves all extremities and no focal motor deficits Speech: speech normal Psych Psych Narrative: Affect is slightly flat and mood seems to be mildly depressed but eye contact is good Results Lab / Micro Data 12/07/23 08:04 12/07/23 08:04 Labs: Laboratory Results - last 24 hr 12/07/23 08:04: WBC 9.8, RBC 5.19, Hgb 15.9, Hct 46.5, MCV 89.6, MCH 30.6, MCHC 34.2, RDW Std Deviation 45.4 H, RDW Coeff of Neda 13.7, Plt Count 250, MPV 9.8, Immature Gran % (Auto) 0.500, Neut % (Auto) 73.7 H, Lymph % (Auto) 17.2 L, [place] % (Auto) 8.0, Eos % (Auto) 0.1, Baso % (Auto) 0.5, Absolute Neuts (auto) 7.2, Absolute Lymphs (auto) 1.69, Nucleated RBC % 0, Sodium 140, Potassium 3.6, Chloride 107, Carbon Dioxide 25.0, Anion Gap 8, BUN 23 H, Creatinine 1.12, Estim Creat Clear Calc 92.21, Est GFR (MDRD) Af Amer 95, Est GFR (MDRD) Non-Af 79, B UN/Creatinine Ratio 20.5 H, Glucose 152 H, Calcium 9.7, Lipase 29 Assessment & Plan Assessment/Plan (1) Cyclical vomiting: (2) Intractable vomiting: (3) Abdominal pain, epigastric: (4) Dehydration: PLAN: Plan Intractable nausea and vomiting -Suspect secondary to cyclic vomiting syndrome -We did obtain a CT which was completely unremarkable -Schedule scopolamine -As needed Zofran and Compazine -Clear liquid diet and advance as tolerated -IV fluids with LR at 100 cc/h -Protonix IV push twice daily Mild dehydration -IV fluids as above next-repeat lab in a.m. Marijuana abuse -Recommend cessation was I do feel that this is probably the etiology for his cyclic vomiting syndrome Alcohol abuse -Patient with periodic binge drinking -Minimal concern for alcohol withdrawal however will monitor with [facility] Tobacco abuse -Recommend cessation -Nicotine patch available Anxiety/depression -Has previously had counseling and seen a psychiatrist -Was taken off all his medicines and has not followed up with psychiatry since -Does not want to follow-up as he does not want to be on medications however he is using alcohol and cannabis and I suspect these are to help with his anxiety and lack of prescribed medications resulting in recreational medication for his symptoms DVT prophylaxis -Subcu Lovenox 40 daily CODE STATUS -Full code is verified at the time of admission Charges/Coding Visit Charges Inpatient E&M: 80422 Init Hosp L2
[2023-12-07 12:13] LABS: Alcohol, Blood (Medical)-Serum < 3.0 mg/dL
[2023-12-07] MEDS: 0.9% Saline Lock 10 ML Syringe IV ×3 (12:31→17:14)
[2023-12-07] MEDS: Lactated Ringers 1,000 ML 100 ML IV ×2 (12:31→21:46)
[2023-12-07] MEDS: Scopolamine 1mg/72hr Patch 1 PATCH TD (12:31)
[2023-12-07 13:13] LABS: Hemoglobin A1c 5.2 % (3.8-5.6)
[2023-12-07] MEDS: proCHLORPERazine 10 MG/2 ML Vial 5 MG IV (14:27)
[2023-12-07 21:29] LABS: Amphetamine Urine VISTA NEGATIVE (<1000 ng/mL); Barbiturate Urine VISTA NEGATIVE (< 200 ng/mL); Benzodiazepine Urine VISTA NEGATIVE (< 200 ng/mL); Cocaine Urine VISTA NEGATIVE (< 300 ng/mL); Ecstacy Urine VISTA NEGATIVE (< 500 ng/mL); Methadone Urine VISTA NEGATIVE (< 300 ng/mL); PCP Urine VISTA NEGATIVE (< 25 ng/mL); THC Urine VISTA POSITIVE (< 50 ng/mL); Vista UDS pH Range 6
[2023-12-07] MEDS: MELATONIN 3 MG TABLET PO (21:46)
[2023-12-08] MEDS: Ondansetron 4 MG/2 ML Vial IV (01:38)
[2023-12-08 02:00] VITALS: BP 163/92; PULSE 56; RESP 18; TEMP 37; O2SAT 98
[2023-12-08 02:10] VITALS: BP 163/92; PULSE 53; RESP 18; TEMP 37; O2SAT 96
[2023-12-08] MEDS: Lactated Ringers 1,000 ML 100 ML IV (06:23)
[2023-12-08 07:35] LABS: Absolute Lymphocyte Count 2.75 X10^3/uL (0.83-4.51); Absolute Neutrophil Count 5.4 X10^3/uL (2.0-7.7); Basophil# 0.05 X10^3/uL; Basophil% 0.6 % (0-1); Eosinophil# 0.01 X10^3/uL; Eosinophils% 0.1 % (0-5); Hematocrit 40.6 % (40-54); Hemoglobin 13.8 g/dL (13.0-16.5); Lymphocyte # 2.75 X10^3/ul (0.83-4.51); Lymphocyte % 30.8 % (19-41); Mean Corpuscular Hgb 30.9 pg (27.0-32.0); Mean Platelet Vol. 10.1 fl (6.2-12.0); Monocyte# 0.75 X10^3/uL; Monocyte% 8.4 % (0-10); NRBC Flagged by Analyzer 0 % (0-5); Neutrophil # 5.35 X10^3/uL (2.7-7.7); Neutrophil % 59.8 % (47-70); Platelet Count 216 K/mm3 (150-450); RBC Distribution Width CV 13.3 % (11.6-14.6); RBC Distribution Width SD 45.2 fl (35.1-43.9); Red Blood Count 4.46 M/mm3 (4.6-6.2); White Blood Count 8.9 K/mm3 (4.4-11.0)
[2023-12-08 08:09] LABS: ALB/GLOB Ratio 1.5 RATIO (0.9-2.4); AST(SGOT) 24 U/L (15-37); Alanine Aminotransfer ALT/SGPT 35 U/L (16-61); Albumin, Serum 3.8 g/dL (3.2-5.0); Alkaline Phosphatase 56 U/L (45-117); Anion Gap 3 (5-15); BUN 13 mg/dL (7-18); BUN/Creat Ratio 13.6 RATIO (10-20); Chloride 106 mmol/L (98-107); Creatinine, Serum 0.96 mg/dL (0.70-1.30); EST Glomerular Filtration Rate 94 mL/min (>60); Est Glom Filt Rate - Afr Amer 114 mL/min (>60); Estimated Creatinine Clearance 108.78 ml/min; Globulin 2.6 g/dL (2.2-4.2); Glucose 93 mg/dL (74-106); Magnesium 2.1 mg/dL (1.6-2.6); Phosphorus 3.5 mg/dL (2.5-4.9); Potassium 3.8 mmol/L (3.5-5.1); Protein, Total 6.4 g/dL (6.4-8.2); Sodium Level 138 mmol/L (136-145); Thyroid Stim Hormone (TSH) 1.18 uIU/mL (0.358-3.74)
[2023-12-08 09:37] VITALS: O2SAT 99
[2023-12-08 09:44] VITALS: BP 123/77; PULSE 54; RESP 16; TEMP 36.7; O2SAT 98
[2023-12-08] MEDS: Thiamine Hydrochloride 100 MG Tablet PO (09:52)
[2023-12-08] MEDS: Folic Acid 1 MG Tablet PO (09:52)
--- NOTE | 2023-12-08 10:25 | DS.PCM_ITS ---
Providers Date of Admission: 12/07/23 Date of Discharge: 12/08/23 Primary Care Physician: No Primary Care Phys Reason For Visit: INTRACTABLE NAUSEA AND VOMITING Diagnosis Discharge Diagnosis (1) Cyclical vomiting: Status: Acute Code(s): R11.15 - Cyclical vomiting syndrome unrelated to migraine (2) Intractable vomiting: Status: Acute Code(s): R11.10 - Vomiting, unspecified (3) Abdominal pain, epigastric: Status: Acute Code(s): R10.13 - Epigastric pain (4) Dehydration: Status: Acute Code(s): E86.0 - Dehydration Medications at Discharge Home Medications ondansetron 4 mg disintegrating tablet 4 mg PO Q6H PRN nausea and vomiting #7 tabs 12/05/23 Lactobacillus acidophilus 10 billion cell capsule (NewFlora) 100 mmu cells PO DAILY 12/07/23 omeprazole 20 mg capsule,delayed release 20 mg PO DAILY 12/07/23 scopolamine base 1 mg over 3 days transdermal patch 1 patch transdermal Q3D@1000 #10 ea 12/08/23 Hospital Course Summary of Care Provided Minutes Spent on Discharge: 30 Hospital Course: JAD DUENAS, is a 38 M who presented to the emergency department at [facility] on 12/07/2023 with persistent intermittent intractable nausea and vomiting. He has a history of cyclic vomiting syndrome and has ongoing use of marijuana. He has been in the emergency department on the , and now on the . He was offered admission for intractable nausea and vomiting previously but declined. He had an episode of binge drinking over the weekend and since that point in time he had intermittent nausea and vomiting. Previous workups were unremarkable however no imaging was obtained at that time. Yesterday the patient looked better clinically and was able to hold down fluids and was discharged home with medication to assist with his nausea however he reported he started vomiting again this morning. He denies any hematemesis or melena and has had no fever or chills. He denies any diarrhea. He had some intermittent epigastric pain and workup previously for that has been negative. He has a previous cholecystectomy. Vital signs on presentation showed temperature of 98, heart rate 71, respiratory was 14, blood pressure was 142/100 and pulse ox was 98% room air. CBC was unremarkable. Chemistry panel showed mild elevated BUN at 23 and a serum creatinine of 1.12 consistent with mild dehydration. His serum glucose was elevated at 152 and has been persistently elevated therefore we obtained a hemoglobin A1c which was found to be 5.2. His lipase was normal at 29. EtOH level was less than 3 and toxicology screen was positive for cannabinoids only. He was admitted to the medical floor and we obtained a CT of his abdomen pelvis which was completely unremarkable. He was placed on IV fluids at 100 cc/h and given scopolamine patch for nausea as well as as needed Zofran and Compazine for breakthrough. With time his symptoms improved drastically to the point last evening where we are able to advance his diet to full liquids and then advance him to a regular diet this morning all of which she tolerated well. Patient stated that about midnight last night he really started feeling very well and is anxious to go home at this time. He states his abdominal pain is completely resolved. We did advise that he quit drinking alcohol and smoking marijuana. He was discharged home in stable condition on 12/08/2023. Patient does have significant anxiety and depression and needs to follow-up with psychiatry. He states he does not want to be on any medications but we did discuss that he is self-medicating and it would be better for him to be on prescription medications and using marijuana and alcohol to treat his symptoms. Discharge diagnoses: Intractable nausea vomiting-resolved Mild dehydration-resolved Marijuana abuse Alcohol abuse Tobacco abuse Anxiety and depression Physical Exam Const alert, oriented x3, no apparent distress, average body habitus, no limitations and healthy appearing; Negative for well nourished Constitutional Narrative: Middle-aged, white male, sitting up in bed, appears comfortable, nontoxic, watching television General Appearance: cooperative, comfortable, well kempt and well developed Orientation / Consciousness: awake, oriented to person, oriented to place and oriented to time Exam Limitations: no limitations HEENT normocephalic, head/scalp atraumatic, hearing grossly normal bilaterally and moist oral mucous membranes HEENT Narrative: Dentition is good, Mallampati is 2, no thrush Resp normal respiratory effort, no retractions, no use of accessory muscles and clear to auscultation bilaterally Auscultation: Negative for rales, rhonchi or wheezes Cardio regular rate, regular rhythm, S1 normal heart sound, S2 normal heart sound, no murmurs, no rub, no gallops and no clicks GI normal to inspection, nondistended, normoactive bowel sounds, soft to palpation and non-tender Extremity no clubbing, cyanosis or edema Extremity Narrative: Pedal pulses are 2+ Neuro oriented x3, moves all extremities and no focal motor deficits Speech: speech normal Psych affect normal Psych Narrative: Eye contact is good and patient interacted appropriately Weight / BMI Weight Weight: 72.3 kg Body Mass Index (BMI) 21.0 ABG / Lab / Microbiology Data 12/08/23 06:15 12/08/23 06:15 Laboratory: Laboratory Results - last 24 hr 12/07/23 08:04: Hemoglobin A1c 5.2 12/07/23 11:25: Ethyl Alcohol < 3.0 12/07/23 20:54: Urine Opiates Screen NEGATIVE, Urine Methadone Screen NEGATIVE, Ur Barbiturates Screen NEGATIVE, Ur Phencyclidine Scrn NEGATIVE, Ur Amphetamines Screen NEGATIVE, MDMA (Ecstasy) Screen NEGATIVE, U Benzodiazepines Scrn NEGATIVE, Urine Cocaine Screen NEGATIVE, U Cannabinoids Screen POSITIVE H, Ur Drug Screen Comment 12/08/23 06:15: WBC 8.9, RBC 4.46 L, Hgb 13.8, Hct 40.6, MCV 91.0, MCH 30.9, MCHC 34.0, RDW Std Deviation 45.2 H, RDW Coeff of Neda 13.3, Plt Count 216, MPV 10.1, Immature Gran % (Auto) 0.300, Neut % (Auto) 59.8, Lymph % (Auto) 30.8, [place] % (Auto) 8.4, Eos % (Auto) 0.1, Baso % (Auto) 0.6, Absolute Neuts (auto) 5.4, Absolute Lymphs (auto) 2.75, Nucleated RBC % 0, Sodium 138, Potassium 3.8, Chloride 106, Carbon Dioxide 29.0, Anion Gap 3 L, BUN 13, Creatinine 0.96, Estim Creat Clear Calc 108.78, Est GFR (MDRD) Af Amer 114, Est GFR (MDRD) Non-Af 94, BUN/Creatinine Ratio 13.6, Glucose 93, Calcium 9.0, Phosphorus 3.5, Magnesium 2.1, Total Bilirubin 1.80 H, AST 24, ALT 35, Alkaline Phosphatase 56, Total Protein 6.4, Albumin 3.8, Globulin 2.6, Albumin/Globulin Ratio 1.5, TSH 1.18 Radiography Diagnostic Testing: Radiology Impression Abdomen/Pelvis CT 12/07/23 09:33 IMPRESSION: No acute abnormality is seen. Electronically Signed: Arsh Ross MD at 14:27 EDT , D/C Instructions Discharge Diet: No restrictions Meaningful Use Info Meaningful Use Meaningful Use Diagnoses (Choose all that apply): None applicable Ischemic Stroke Statin Dosing Therapy Reference: STATIN DOSE THERAPY REFERENCE: * Patients > 75 years receive moderate or high dose statin therapy. * Patients 75 years or YOUNGER should receive HIGH intensity statin dose unless contraindicated. You will be required to document reason for non-treatment if statin daily dose does not meet guidelines. HIGH DOSE STATIN THERAPY DAILY Atorvastatin > than or = to 40 mg Rosuvastatin > than or = to 20 mg Amlodipine + Atorvastatin > than or = to 2.5/40 mg Ezetimibe + Simvastatin 10/80 mg Simvastatin 80mg Discharge Plan Admission Admit Date/Time: 12/07/23 09:21 Primary Reason for Your Visit: Intractable nausea and vomiting Attending Provider: Lissy Lara Primary Care Provider: Care Physician,Elizabeth Primary Discharge Orders/Prescriptions Prescriptions: New scopolamine base 1 mg over 3 days Patch 3 Day 1 patch transdermal Q3D@1000 Qty: 10 0RF Continued ondansetron 4 mg tablet,disintegrating 4 mg PO Q6H PRN (Reason: nausea and vomiting) Qty: 7 0RF NewFlora 10 billion cell capsule 100 mmu cells PO DAILY omeprazole 20 MG capsule 20 mg PO DAILY Referrals / Follow Up: Care Physician,No Primary [Primary Care Provider] - Disposition Disposition (needs filled in before D/C Order can be placed): Home, Self Care Charges/Coding Visit Charges Inpatient E&M: 33305 Disch Hosp
--- NOTE | 2023-12-08 11:23 | PHA.DC.MC.R ---
Pharmacy [facility] Service has performed discharge medication reconciliation and counseling for this patient. 1. SCOPOLAMINE 1MG PATCH TD Q3D The patient's discharge medication list was reviewed for discrepancies and discrepancies were resolved. The patient was counseled on the following discharge medications and changes in medications for homegoing were reviewed. The Reason for Use, instructions for use, and potential side effects were reviewed for all new medications. The patient's questions regarding all of their medications were answered. The patient was able to verbally demonstrate an understanding of their discharge medications. Medications at Discharge Home Medications ondansetron 4 mg disintegrating tablet 4 mg PO Q6H PRN nausea and vomiting #7 tabs 12/05/23 Lactobacillus acidophilus 10 billion cell capsule (NewFlora) 100 mmu cells PO DAILY 12/07/23 omeprazole 20 mg capsule,delayed release 20 mg PO DAILY 12/07/23 scopolamine base 1 mg over 3 days transdermal patch 1 patch transdermal Q3D@1000 #10 ea 12/08/23
--- NOTE | 2023-12-08 11:33 | CASEMGMT ---
Social Work- met with pt to discuss self pay status and any other resources or supports needed. Pt states that he was a client at [facility] for 7 years, seeing Miles Epstein. Pt reports that he was on zoloft, remeron, and seroquel. Pt reports that the medication made him feel like a zombie and that he didn't feel any emotions, as well as gained a bunch of weight. Pt reports he was 249lbs. Pt states that he quit medication with support of [facility] staff and began walking 2 miles per day. PT states that he is bipolar and has aspergers. PT has extreme ideations and swings in moods. PT reports that he smoke marijuana to help with anxiety and intense emotions. PT reports that he works at the [employer] and makes $10.45/hr and works 3 days per week. Pt states his father financially supports him. Pt states he knows he should link with resources, but has poor follow through and will follow what he's doing now until that ship sinks. Pt reports that he has a $525/month car payment, but no other expenses. Pt reports no support system with the exception of one casual acquaintance who does not drink or use hard drugs. Pt states that he does not intend to drink again and has no interest in hard drugs, stating that he smokes 1-2 bowls of 'the flower' per day o relax. Pt reports that his mom was his biggest emotional support and she during COVID after falling while drinking. Pt was encouraged to reconnect with counseling and offered mental health resources; pt declined. Pt declined substance use resources or community resources. PT encouraged to join community groups, seek healthy supports. Pt was agreeable to starting medicaid application; Jodie/[employer] to meet with pt following SW. MARCIA Cuellar
== END 2023-12-08 11:36 | disposition home or self-care (01) ==
LOC: ED 09:25 → MS3 10:00
PROVIDERS: Admitting Provider Internal Medicine; Emergency Provider Emergency Medicine; Visit Provider Internal Medicine
DX: R11.15 Cyclical vomiting syndrome unrelated to migraine (principal); F12.10 Cannabis abuse, uncomplicated; E86.0 Dehydration; F32.A Depression, unspecified; F17.210 Nicotine dependence, cigarettes, uncomplicated; F41.9 Anxiety disorder, unspecified; F10.10 Alcohol abuse, uncomplicated; K21.9 Gastro-esophageal reflux disease without esophagitis; Z79.899 Other long term (current) drug therapy
CPT/HCPCS: 74177; 80048; 80053; 80307; 80320; 83036; 83690; 83735; 84100; 84443; 85025; 94668; 96361; 96365; 96366; 96367; 96375; 96376; 97802; 99221; 99284; J7030; J7120; Q9967; A4216; G0378; G0480; J2405; J3490

== ENCOUNTER 2024-07-25 11:57 | Emergency (ER) | payer OTHER, SELFPAY ==
[2024-07-25 12:04] VITALS: BP 146/99; PULSE 105; RESP 16; TEMP 36.9; O2SAT 98; BMI 21.8
--- NOTE | 2024-07-25 13:01 | EX.ED.DYSGE1 ---
HPI History of Present Illness Chief Complaint: Nausea/Vomiting/Diarrhea Narrative Narrative: 39-year-old male presents with nausea, vomiting, and diarrhea that he has had for the last 2 to 3 days. He presents via EMS. He states has had fever of 100 ?F and feels shaky. He states he feels very dehydrated and told triage that he thinks he has norovirus. In review of his EMR, he has had history of cyclic vomiting in the past. He denies any blood in his emesis and states that he has vomited multiple times in the past 24 hours, too many to count with only 1 episode of diarrhea/loose stool. He was given Zofran per EMS, and feels improved and would like to try ice chips currently. He presents mainly because he states he feels dehydrated. PFSH PFSH Medical History Cyclical vomiting Cannabis abuse Substance abuse GERD (gastroesophageal reflux disease) Smoker Home Medications ?Medication ?Instructions ?Recorded ?Last Taken ?Type ondansetron 4 mg disintegrating 4 mg PO Q6H PRN nausea and 12/05/23 Unknown Rx tablet vomiting #7 tabs omeprazole 20 mg capsule,delayed 20 mg PO DAILY 12/07/23 Unknown History release scopolamine base 1 mg over 3 days 1 patch transdermal Q3D@1000 #10 ea 12/08/23 Unknown Rx transdermal patch ondansetron 4 mg disintegrating 4 mg PO Q8H PRN PRN nausea and 07/25/24 Unknown Rx tablet vomiting #10 tabs Allergy/AdvReac Type Severity Reaction Status Date / Time No Known Allergies Allergy Verified 07/25/24 12:33 Social History Smoking Status: Current every day smoker tobacco type: cigarettes ROS ROS ED ROS Narrative Constitutional: Positive fever, no chills. Cardiovascular: No chest pain. No palpitations. No pedal edema. Respiratory: No cough, no shortness of breath. Abdominal: No abdominal pain. Multiple episodes of nausea and vomiting. 1 episode of diarrhea. No hematemesis. No hematochezia or melena. Genitourinary: No dysuria. No hematuria. Musculoskeletal: No myalgias. No arthralgias. Neurologic: No headaches. No dizziness. No lightheadedness. Feels weak and shaky however. Psychiatric: No depression. No anxiety. EXAM Physical Exam Narrative Exam Narrative: Afebrile. Vital signs noted. Nontoxic-appearing. Cardiovascular examination reveals intermittent tachycardia, but regular rhythm. Lungs are clear to auscultation bilaterally. Abdomen is soft and nontender without guarding or rebound. Positive bowel sounds. Neurological examination is nonfocal and nonlateralizing. Mucous membranes appear slightly tacky. Const Vital Signs: 07/25/24 12:04 07/25/24 14:00 Temperature 98.4 F Temperature Source Oral Pulse Rate 105 H 128 H Respiratory Rate 16 16 Blood Pressure 146/99 H Blood Pressure Mean 114 Pulse Ox 98 97 Oxygen Delivery Method Room Air Room Air MDM MDM MDM Narrative Medical decision making narrative: Reviewed the patient's prior EMR. He has had cyclic vomiting in the past. I discussed with him use of medications for cyclic vomiting, but he feels improved after Zofran initially. He will be given ice chips. Also the differential diagnosis is pancreatitis versus gastroenteritis versus dehydration versus other electrolyte abnormality. I will check basic laboratory work to look for dehydration and obtain CBC, CMP, and lipase. I do not feel CT imaging is emergently indicated. I reviewed his laboratory work and he has slightly elevated white count of 13.2 which may be demargination from his vomiting. When compared to prior laboratories send intermittent leukocytosis with a being higher. Slightly hemoconcentrated with hemoglobin of 17.2 with hematocrit 49. Platelet count normal at 355. Sodium slightly low at 134 which I think is nonspecific, BUN of 20 and creatinine 1.57. He was bolused normal saline 1 L intravenously. AST low at 7 and ALT low at 14, lipase also 14 so I doubt pancreatitis. He did admit to the RN that he smoked marijuana yesterday. He was unable to tolerate p.o. ice chips at that time so he was administered cyclic vomiting medications in the form of Ativan, Pepcid, Benadryl, and chlorpromazine. Upon repeat evaluation at approximately 1445, he is resting comfortably. He was told to avoid the use of marijuana/THC as this may induce his previous cyclic vomiting as well. He was given a prescription for 10 Zofran ODT's. At this point in time, I feel he can be discharged safely home with follow-up. Return instructions to the emergency department reviewed. Disposition is discharged home in stable condition. History & Record Review Discussion w/independent historian: Patient Lab Data Attestation: I reviewed the patient's lab results. Labs: Laboratory Results - last 24 hr 07/25/24 13:11 WBC 13.2 H RBC 5.71 Hgb 17.2 H Hct 49.1 MCV 86.0 MCH 30.1 MCHC 35.0 RDW Std Deviation 38.7 RDW Coeff of Neda 12.3 Plt Count 355 MPV 8.9 Immature Gran % (Auto) 0.500 Neut % (Auto) 93.7 H Lymph % (Auto) 2.8 L [place] % (Auto) 2.7 Eos % (Auto) 0.0 Baso % (Auto) 0.3 Absolute Neuts (auto) 12.3 H Absolute Lymphs (auto) 0.37 L Nucleated RBC % 0 Sodium 134 L Potassium 3.7 Chloride 102 Carbon Dioxide 21.0 Anion Gap 12 BUN 20 H Creatinine 1.57 H Estim Creat Clear Calc 68.36 Est GFR (MDRD) Af Amer 64 Est GFR (MDRD) Non-Af 53 L BUN/Creatinine Ratio 12.7 Glucose 184 H Calcium 10.6 H Total Bilirubin 0.80 AST 7 L ALT 14 L Alkaline Phosphatase 77 Total Protein 9.0 H Albumin 4.7 Globulin 4.3 H Albumin/Globulin Ratio 1.1 Lipase 14 Discharge Plan Triage Chief Complaint: Nausea/Vomiting/Diarrhea ED Provider: Karri Guerra Dx/Rx/DC Orders Clinical Impression: Nausea & vomiting, Cyclic vomiting syndrome, Cannabis hyperemesis syndrome concurrent with and due to cannabis abuse Instructions: Cannabinoid Hyperemesis Syndrome, ED Cyclic Vomiting Syndrome, ED Vomit Diarrhea Nonspec Adult Prescriptions: New ondansetron 4 mg tablet,disintegrating 4 mg PO Q8H PRN PRN (Reason: nausea and vomiting) Qty: 10 0RF No Action ondansetron 4 mg tablet,disintegrating 4 mg PO Q6H PRN (Reason: nausea and vomiting) Qty: 7 0RF omeprazole 20 MG capsule 20 mg PO DAILY scopolamine base 1 mg over 3 days Patch 3 Day 1 patch transdermal Q3D@1000 Qty: 10 0RF Primary Care Provider: Care Physician,No Primary Referrals: Andrew Lui MD [Med Staff - Active Staff] - 3-5 Days if not improving Care Physician,No Primary [Primary Care Provider] - Activity Restrictions/Additional Instructions: Avoid use of marijuana as it may cause continued nausea and vomiting. Return with sustained high fever, new or worsening symptoms. Print Language: [place] Disposition Disposition: Home, Self Care
[2024-07-25] MEDS: 0.9% Normal Saline (1000mL) 1,000 ML 999 ML IV (13:09)
[2024-07-25 13:23] LABS: Absolute Lymphocyte Count 0.37 X10^3/uL (0.83-4.51); Absolute Neutrophil Count 12.3 X10^3/uL (2.0-7.7); Basophil# 0.04 X10^3/uL; Basophil% 0.3 % (0-1); Hematocrit 49.1 % (40-54); Hemoglobin 17.2 g/dL (13.0-16.5); Lymphocyte # 0.37 X10^3/ul (0.83-4.51); Lymphocyte % 2.8 % (19-41); Mean Corpuscular Hgb 30.1 pg (27.0-32.0); Mean Platelet Vol. 8.9 fl (6.2-12.0); Monocyte# 0.36 X10^3/uL; Monocyte% 2.7 % (0-10); NRBC Flagged by Analyzer 0 % (0-5); Neutrophil # 12.34 X10^3/uL (2.7-7.7); Neutrophil % 93.7 % (47-70); POSITIVE DIFFERENTIAL YES; Platelet Count 355 K/mm3 (150-450); RBC Distribution Width CV 12.3 % (11.6-14.6); RBC Distribution Width SD 38.7 fl (35.1-43.9); Red Blood Count 5.71 M/mm3 (4.6-6.2); White Blood Count 13.2 K/mm3 (4.4-11.0)
[2024-07-25 13:38] LABS: ALB/GLOB Ratio 1.1 RATIO (0.9-2.4); AST(SGOT) 7 U/L (15-37); Alanine Aminotransfer ALT/SGPT 14 U/L (16-61); Albumin, Serum 4.7 g/dL (3.2-5.0); Alkaline Phosphatase 77 U/L (45-117); Anion Gap 12 (5-15); BUN 20 mg/dL (7-18); BUN/Creat Ratio 12.7 RATIO (10-20); Calcium,Total 10.6 mg/dL (8.5-10.1); Chloride 102 mmol/L (98-107); Creatinine, Serum 1.57 mg/dL (0.70-1.30); EST Glomerular Filtration Rate 53 mL/min (>60); Est Glom Filt Rate - Afr Amer 64 mL/min (>60); Estimated Creatinine Clearance 68.36 ml/min; Globulin 4.3 g/dL (2.2-4.2); Glucose 184 mg/dL (74-106); Lipase 14 U/L (13-75); Potassium 3.7 mmol/L (3.5-5.1); Sodium Level 134 mmol/L (136-145)
[2024-07-25] MEDS: LORazepam 2 MG/ML Syringe 0.5 MG IV (13:47)
[2024-07-25 14:00] VITALS: PULSE 128; RESP 16; O2SAT 97
[2024-07-25] MEDS: Famotidine 200 MG/20 ML MDV 20 MG in 0.9% Normal Saline (Pres. free 8 ML 300 MG IV (14:00)
[2024-07-25] MEDS: DiphenhydrAMINE 50 MG, ChlorproMAZINE IM 25 MG in 0.9% Normal Saline (100mL Bag) 100 ML 204 MG IV (14:00)
--- NOTE | 2024-07-25 14:14 | CM.ED ---
Social Work Reason for visit: No PCP Patient verified that he does not currently have a PCP. [facility] provider list was given. No further needs identified at this time. Jaylin Becker, QUALITY CONTROL OPERATOR, MANUFACTURING COORDINATOR
[2024-07-25 15:10] VITALS: BP 122/89; PULSE 76; RESP 16; O2SAT 99
--- NOTE | 2024-07-25 15:35 | ED.RN ---
pt given dc instructions and his phone encouraged to call for a ride.
== END 2024-07-25 15:45 | disposition home or self-care (01) ==
PROVIDERS: Emergency Provider Emergency Medicine; Visit Provider Emergency Medicine
DX: R11.15 Cyclical vomiting syndrome unrelated to migraine (principal); F12.10 Cannabis abuse, uncomplicated; R19.7 Diarrhea, unspecified; K21.9 Gastro-esophageal reflux disease without esophagitis; F17.210 Nicotine dependence, cigarettes, uncomplicated; Z79.899 Other long term (current) drug therapy
CPT/HCPCS: 80053; 83690; 85025; 96361; 96365; 96375; 99285; A4216

== ENCOUNTER 2024-07-27 00:09 | Emergency (ER) | payer SELFPAY ==
[2024-07-27 00:10] VITALS: BP 171/89; PULSE 74; RESP 18; TEMP 36.6; O2SAT 99; BMI 23.2
--- NOTE | 2024-07-27 00:29 | ED.VIS.GI ---
HPI HPI - GI History of Present Illness Chief Complaint: Nausea/Vomiting Informant: patient Nausea/Vomiting/Emesis GI Symptom: Positive for Nausea and Vomiting Onset: Days Severity: Moderate Diarrhea/Melena/Hematochezia GI Symptom: Negative for Diarrhea, Melena or Hematochezia Associated Symptoms Associated Symptoms: Negative for Dysuria, Frequency, Hematuria or Urgency Narrative Narrative: 39-year-old male history of cyclic vomiting syndrome. Does admit to marijuana use in the last several days. Prior cholecystectomy. Said since Wednesday has had nausea vomiting. He has used his Zofran and Phenergan. Was in the ER on Wednesday evening. Said he has not picked up his nausea medications as of yet. Said has been drinking a lot of water and then throws it up. Really denies any abdominal pain. No fever. No dysuria. No hematemesis. Prior similar symptoms: Yes Recent Illness/Hospitalization: No PFSH PFSH Medical History Cyclical vomiting Cannabis abuse Substance abuse GERD (gastroesophageal reflux disease) Smoker Home Medications ?Medication ?Instructions ?Recorded ?Last Taken ?Type ondansetron 4 mg disintegrating 4 mg PO Q6H PRN nausea and 12/05/23 Unknown Rx tablet vomiting #7 tabs omeprazole 20 mg capsule,delayed 20 mg PO DAILY 12/07/23 Unknown History release scopolamine base 1 mg over 3 days 1 patch transdermal Q3D@1000 #10 ea 12/08/23 Unknown Rx transdermal patch ondansetron 4 mg disintegrating 4 mg PO Q8H PRN PRN nausea and 07/25/24 Unknown Rx tablet vomiting #10 tabs Allergy/AdvReac Type Severity Reaction Status Date / Time No Known Allergies Allergy Verified 07/27/24 00:10 Social History Smoking Status: Current every day smoker tobacco type: cigarettes ROS ROS ED ROS Narrative Nausea and vomiting. Constitutional Constitutional ED: Denies chills or fever(s) ENT ENT ED: Denies ear pain or rhinorrhea Cardiovascular Cardiovascular: Denies chest pain or palpitations Respiratory/Chest Respiratory/Chest: Denies cough or dyspnea Gastrointestinal Gastrointestinal: Reports nausea and vomiting; Denies abdominal pain, constipation, diarrhea or melena Genitourinary Genitourinary ED: Denies dysuria or hematuria Musculoskeletal Musculoskeletal: Denies arthralgias Integumentary Denies abscess Neurologic Neurologic: Denies headache(s) Psychiatric Psychiatric: Denies anxiety Endocrine Endocrinology: Denies polydipsia Hematologic/Lymphatic Hematologic/Lymphatic: Denies easy bleeding Allergic/Immunologic Allergic/Immunologic ED: Denies mouth swelling, tongue swelling or urticaria EXAM Physical Exam Narrative Exam Narrative: Well-appearing 39-year-old male. Vital signs are stable afebrile. He does not look septic toxic. No acute distress. Sitting upright in bed. No one else present in the room. H EENT exam pupils round react light. Mildly dry mucous membranes. Neck nontender. No lymphadenopathy. Lungs clear to auscultation bilaterally. Heart regular rhythm rate about 70 no murmur. Chest wall ribs nontender. Abdomen soft nontender. Nondistended. No hernia or mass. No obstruction. No peritoneal signs. Moving all 4 extremities. Normal strength. Normal range of motion. Nontender no edema. Back nontender. Skin no rashes. Neurologically he is awake and alert no focal motor deficits. Answering questions following commands. Very benign exam. Const Vital Signs: 07/27/24 00:10 Temperature 97.9 F Temperature Source Oral Pulse Rate 74 Respiratory Rate 18 Blood Pressure 171/89 H Blood Pressure Mean 116 Pulse Ox 99 Oxygen Delivery Method Room Air Positive well nourished and well developed; Negative for obese, cachectic, contractures or unkempt General Appearance ED: well developed and NAD; Negative for unkempt, cachectic, contractures or pallor Nutritional Appearance: Negative for cachectic or obese HEENT Reports dry mucous membranes; Denies moist mucous membranes normocephalic and atraumatic Mouth ED: Yes dry mucous membranes Mouth: dry mucous membranes Eyes PERRL and EOMs intact bilaterally General Eye ED: Negative for pale conjunctiva or scleral icterus Neck no lymphadenopathy, supple and no JVD General: Negative for tenderness Resp normal respiratory effort and clear to auscultation bilaterally Cardio regular rate, regular rhythm, S1 normal heart sound, S2 normal heart sound and no murmurs GI non-tender, non-distended and no masses Inspection: Negative for abdominal distention Auscultation: normoactive bowel sounds Palpation: soft; Negative for tender, guarding, hernia, mass, pulsatile mass or rebound tenderness present Back/Spine no CVA tenderness Extremity full ROM General Extremety ED: Negative for edema or tenderness General Extremity: Negative for edema Neuro CN's II-XII intact bilaterally and moves all extremities Sensorium / Orientation: alert, oriented to person, oriented to place and oriented to time; Negative for orientation impaired, confused, lethargic or stuporous Psych mental status grossly normal and thought process normal Appearance: Negative for unkempt Mood & Affect: Negative for depressed, anxious or tearful Skin no wounds General Skin Exam: Negative for jaundice or pallor Lesions: no lesions Rashes: no rashes Trauma: Negative for abrasion Nails: Negative for discolored MDM MDM MDM Narrative Medical decision making narrative: Well-appearing 39-year-old male history of cyclic vomiting. Benign abdomen. To be treated with IV fluids and are cyclic vomiting protocol. Abdomen is benign. I do not think he will need any imaging. I will get a electrolyte panel due to the vomiting for several days. Repeat exam at 3:01 AM. Patient requested additional medications he was given IV Benadryl and IV Zofran. States he threw up again. Clinically looks well. Lungs are clear. Abdomen is benign and nontender. Repeat exam at 4:10 AM patient doing well. Vomiting resolved. He did receive Protonix and Reglan. Will be discharged home. Abdomen is benign. He has a prescription from a recent visit for Zofran at home. History & Record Review Discussion w/independent historian: Patient Additional record(s) reviewed:: Prior inpatient record, Prior outpatient record, Prior ED visit and Prior labs Lab Data Attestation: I reviewed the patient's lab results. Lab results narrative: BMP shows potassium of 3.3. Gap 13. BUN of 18 creatinine 1.28. Glucose 132. Better than prior labs. Labs: Laboratory Results - last 24 hr 07/27/24 00:15 Sodium 137 Potassium 3.3 L Chloride 101 Carbon Dioxide 23.0 Anion Gap 13 BUN 18 Creatinine 1.28 Estim Creat Clear Calc 89.27 Est GFR (MDRD) Af Amer 81 Est GFR (MDRD) Non-Af 67 BUN/Creatinine Ratio 14.1 Glucose 132 H Calcium 10.1 Discharge Plan Triage Chief Complaint: Nausea/Vomiting ED Provider: Behzad Leroy Dx/Rx/DC Orders Clinical Impression: Cyclic vomiting syndrome, Cannabis use disorder Instructions: ED Marijuana Abuse, ED Vomiting (Adult) Prescriptions: No Action ondansetron 4 mg tablet,disintegrating 4 mg PO Q6H PRN (Reason: nausea and vomiting) Qty: 7 0RF omeprazole 20 MG capsule 20 mg PO DAILY scopolamine base 1 mg over 3 days Patch 3 Day 1 patch transdermal Q3D@1000 Qty: 10 0RF ondansetron 4 mg tablet,disintegrating 4 mg PO Q8H PRN PRN (Reason: nausea and vomiting) Qty: 10 0RF Primary Care Provider: Care Physician,No Primary Referrals: Care Physician,No Primary [Primary Care Provider] - Radha Llanes, [employer] [facility] [[facility]] - 3-5 Days if not improving Activity Restrictions/Additional Instructions: Plenty of fluids and rest. Follow-up with either your primary care provider or the [facility] if not improving. Nausea medications as prescribed from your last visit. Print Language: Czech Disposition Disposition: Home, Self Care
[2024-07-27] MEDS: Ondansetron 4 MG/2 ML Vial IV ×2 (00:38→02:08)
[2024-07-27] MEDS: Lorazepam 2 MG/ML WCH Syringe 0.5 MG IV (00:38)
[2024-07-27] MEDS: 0.9% Normal Saline (1000mL) 1,000 ML 999 ML IV (00:38)
[2024-07-27 00:54] LABS: Anion Gap 13 (5-15); BUN 18 mg/dL (7-18); BUN/Creat Ratio 14.1 RATIO (10-20); Calcium,Total 10.1 mg/dL (8.5-10.1); Chloride 101 mmol/L (98-107); Creatinine, Serum 1.28 mg/dL (0.70-1.30); EST Glomerular Filtration Rate 67 mL/min (>60); Est Glom Filt Rate - Afr Amer 81 mL/min (>60); Estimated Creatinine Clearance 89.27 ml/min; Glucose 132 mg/dL (74-106); Potassium 3.3 mmol/L (3.5-5.1); Sodium Level 137 mmol/L (136-145)
[2024-07-27] MEDS: Famotidine 200 MG/20 ML MDV 20 MG in 0.9% Normal Saline (Pres. free 8 ML 300 MG IV (01:10)
[2024-07-27] MEDS: DiphenhydrAMINE 50 MG/ML Syringe IV (02:08)
[2024-07-27] MEDS: Pantoprazole Sodium 40 MG in 0.9% Normal Saline (100mL MB+) 100 ML 330 MG IV (03:11)
[2024-07-27] MEDS: Metoclopramide 10 MG/2 ML Vial 5 MG IV (03:12)
[2024-07-27 04:10] VITALS: RESP 16
[2024-07-27 04:16] VITALS: BP 156/70; PULSE 71; RESP 16; TEMP 36.7; O2SAT 97
== END 2024-07-27 04:18 | disposition home or self-care (01) ==
PROVIDERS: Emergency Provider Emergency Medicine; Visit Provider Emergency Medicine
DX: R11.15 Cyclical vomiting syndrome unrelated to migraine (principal); F12.10 Cannabis abuse, uncomplicated; K21.9 Gastro-esophageal reflux disease without esophagitis; F17.210 Nicotine dependence, cigarettes, uncomplicated; Z79.899 Other long term (current) drug therapy
CPT/HCPCS: 80048; 96361; 96365; 96375; 96376; 99282; A4216; J2405